=== PATIENT | female | born 1985 | race Caucasian/White ===

== ENCOUNTER → 2017-09-04 | Outpatient (CLI) | payer MEDICAID ==
[~2017-09-04] MED LIST: CYCL5TAB PO; IOHEXOL 350 MG/ML 100 ML (OMNIPAQUE 350) VIAL IV ONE; MELO15TA39 PO; NS 250 ML (IVPB) BAG IV ONE
--- NOTE | 2017-09-04 12:07 | Diagnostic Imaging Report ---
PROCEDURE: CT head with and without contrast. TECHNIQUE: Multiple contiguous axial images were obtained through the brain before and after the administration of intravenous contrast. INDICATION: Dizziness and visual disturbances. Headache. COMPARISON: None. FINDINGS: No acute intracranial hemorrhage, mass effect or edema seen. Reyes-white junction is preserved. The ventricles appear normal. No focal abnormality is seen. There is no abnormal enhancement. The paranasal sinuses and mastoids are clear as visualized. IMPRESSION: There is no evidence of an acute intracranial abnormality. Dictated by: Dictated on workstation # [id number]
== END ==
LOC: RAD 10:50
PROVIDERS: ATTEND Internal Medicine Gastroenterology
DX: G44.321 Chronic post-traumatic headache, intractable (principal)
CPT/HCPCS: 70470

== ENCOUNTER → 2017-09-06 | Outpatient (CLI) | payer MEDICAID ==
[~2017-09-06] MED LIST changes: -IOHEXOL 350 MG/ML 100 ML (OMNIPAQUE 350) VIAL IV ONE; -NS 250 ML (IVPB) BAG IV ONE
== END ==
LOC: PREOP 05:30
PROVIDERS: ATTEND Surgery
DX: Z01.818 Encounter for other preprocedural examination (principal)

== ENCOUNTER 2017-09-12 13:38 | Emergency (ER) | payer MEDICAID ==
[2017-09-15] MEDS ORDERED: CYCL5TAB PO (11:56)
== END 2017-09-12 13:55 | disposition left against medical advice (07) ==
LOC: EDUNIT# 13:38 → ER 13:40
DX: M54.5 Low back pain (principal)

== ENCOUNTER 2017-09-18 08:30 | Emergency (ER) | payer MEDICAID ==
[~2017-09-18] VITALS: Ht 172.7 cm; Wt 85.3 kg
[~2017-09-18 08:30] MED LIST changes: -MELO15TA39 PO
--- NOTE | 2017-09-18 09:45 | ED Lower Extremity ---
General Chief Complaint: Lower Extremity Stated Complaint: LOWER BACK PAIN//TOOTH PAIN//KNEE PAIN Source: patient Exam Limitations: no limitations History of Present Illness Date Seen by Provider: September 18, 2017 Time Seen by Provider: 09:32 Initial Comments Right knee pain for over a year. She was being followed in [place] and was told that she needed to have surgery on her right knee by a knee surgeon. Unfortunately 3 weeks ago after the passing of her mother she has moved to [place] and now needs to reestablish care. She is being seen by [facility] by Dr. bravo but has not gotten referral to see orthopedic surgery or have anything worked on this knee. She has had multiple pain meds in the past and she says tramadol works very well for her pain as well as opiates however she has allergy to naproxen. She was here in the ER a couple days ago she says and they gave her some pain medicine as well as some Flexeril but that did not help her knee. She says her knee locks up on her sometimes and is stiff most mornings. She is not having any swelling redness, fever, nausea, chills, vomiting, diarrhea. She's had no discharge, dysuria or difficulty urinating. Allergies and Home Medications Allergies Coded Allergies: No Allergy Information Available (Unverified , 08/23/17) Home Medications Cyclobenzaprine HCl 5 Mg Tablet, 5 MG PO TID PRN for PAIN-MODERATE Prescribed by: BRITTNEY JONES on 09/15/17 6976 Patient Home Medication List Home Medication List Reviewed: Yes Constitutional: No chills, No fever EENTM: No ear pain, No eye pain, No tearing, No vision loss Respiratory: No cough, No short of breath Cardiovascular: No chest pain, No edema Gastrointestinal: No abdominal pain, No constipation, No nausea Genitourinary: No discharge, No dysuria Musculoskeletal: see HPI, back pain (chronic), joint pain Skin: No pruritus, No rash Past Gqxhdea-Psgsyn-Jgyadn Hx Patient Social History Alcohol Use: Denies Use Recreational Drug Use: No Smoking Status: Former Smoker Type Used: Cigarettes Former Smoker, Quit: September 12, 2016 Recent Foreign Travel: No Contact w/Someone Who Travel: No Recent Hopitalizations: No Physical Abuse: No Sexual Abuse: No Mistreated: No Fear: No Seasonal Allergies Seasonal Allergies: No Past Medical History Surgeries: No Respiratory: No Cardiac: No Neurological: No Genitourinary: No Gastrointestinal: No Musculoskeletal: No Endocrine: No HEENT: No Cancer: No Psychosocial: No Nursing Suicide Risk Score: 0 Integumentary: No Blood Disorders: No Adverse Reaction/Blood Tranf: No Physical Exam Vital Signs Capillary Refill : General Appearance: WD/WN, no apparent distress HEENT: PERRL/EOMI, pharynx normal Cardiovascular: normal peripheral pulses, regular rate, rhythm Respiratory: no respiratory distress, no accessory muscle use Hips: bilateral hip non-tender, bilateral hip normal inspection, bilateral hip normal range of motion, bilateral hip no evidence of injury Legs: bilateral leg non-tender, bilateral leg normal inspection, bilateral leg normal range of motion, bilateral leg no evidence of injury Knees: left knee non-tender; bilateral knee normal inspection, bilateral knee normal range of motion; left knee no evidence of injury; right knee bone tenderness (anterior lateral tibial plateau), right knee pain, right knee other (pain on the LCL tension but negative anterior-posterior drawer test) Ankles: bilateral ankle non-tender, bilateral ankle normal inspection, bilateral ankle normal range of motion, bilateral ankle no evidence of injury Neurologic/Tendon: normal sensation, normal motor functions, normal tendon functions, responds to pain, no evidence tendon injury Neurologic/Psychiatric: no motor/sensory deficits, alert, oriented x 3 Skin: normal color, warm/dry Progress/Results/Core Measures Progress Progress Note : Time: 09:42 Progress Note She's not desirous of any NSAIDs acutely today but she is willing to try meloxicam scheduled for her chronic knee pain. She also like a list of the doctors in the area as well as she's asked for referral for orthopedic surgery. Departure Impression Primary Impression: Right anterior knee pain Disposition: 01 HOME, SELF-CARE Condition: Stable Departure-Patient Inst. Decision time for Depature: 09:43 Referrals: LINA PELAEZ,LOCAL PHYSICIAN (PCP) Primary Care Physician Patient Instructions: Chronic Knee Pain, LOCAL PHYSICIAN LIST Add. Discharge Instructions: Ice the knee as needed as well as use heating pads, elevated if he gets swollen. You can use a knee wrap her knee brace for compression and support. You can also use creams such as icy hot or Biofreeze. Use the meloxicam one tablet daily for the next 4 weeks. For breakthrough pain you can use 1000 mg of Tylenol every 8 hours. You should also try and follow-up with either your primary care doctor or see the list for a new primary care doctor. If you wish to follow up with orthopedic surgery in you can call Dr. Pelaez at [facility] at [phone] and request a call that she will still need referral from your primary care doctor. All discharge instructions reviewed with patient and/or family. Voiced understanding. Scripts Meloxicam (Meloxicam) 15 Mg Tablet 15 MG PO DAILY for 30 Days, #30 TAB 0 Refills Prov: VALERIE OGLESBY 09/18/17 Copy Copies To 1: GALINA BANGURA DO VALERIE OGLESBY September 18, 2017 09:45
[2017-09-18] MEDS ORDERED: MELO15TA39 PO (09:46)
[2017-09-18 09:50] VITALS: BP 126/74
== END 2017-09-18 09:50 | disposition home or self-care (01) ==
LOC: EDUNIT# 08:30 → ER 08:33
DX: M25.561 Pain in right knee (principal); Z87.891 Personal history of nicotine dependence
CPT/HCPCS: 99283

== ENCOUNTER 2017-09-22 05:41 | Outpatient (CLI) | payer MEDICAID ==
[~2017-09-22] VITALS: Ht 172.7 cm; Wt 85.3 kg
[~2017-09-22 05:41] MED LIST changes: +MELO15TA39 PO
== END 2017-09-22 13:56 ==
LOC: PREOP 05:41
PROVIDERS: ATTEND Surgery
DX: Z01.818 Encounter for other preprocedural examination (principal); K81.1 Chronic cholecystitis

== ENCOUNTER 2017-12-29 13:06 | Emergency (ER) | payer MEDICAID ==
[~2017-12-29] VITALS: Ht 172.7 cm; Wt 80.7 kg
[2017-12-29] MEDS ORDERED: TRAM-42 PO (14:29)
[2017-12-29] MEDS ORDERED: PRD20T PO (14:29)
--- NOTE | 2017-12-29 14:29 | ED General ---
General Chief Complaint: General Problems/Pain Stated Complaint: BACK PAIN/WEAKNESS Nursing Triage Note: Pt ambulated to rm 8 w/o difficulty. Pt states hurt back moving. Pt seems very lethargic. Pt states she took a muscle relaxer today. Nursing Sepsis Screen: No Definite Risk Source of Information: Patient Exam Limitations: No Limitations History of Present Illness Date Seen by Provider: Jan 01, 2018 Time Seen by Provider: 14:00 Initial Comments This 32-year-old young lady presents to the emergency room with complaints of lower back pain. She denies any bowel or bladder dysfunction or leg weakness. She does have some paresthesia and pain radiating into the right thigh. She has had this problem previously. She took some muscle relaxers earlier today which did not improve her pain much. She does feel somnolent on muscle relaxers and her speech and demeanor seems sluggish this afternoon. There was no precipitating injury. He also take ibuprofen 800 mg this morning without significant relief. Allergies and Home Medications Allergies Coded Allergies: Penicillins (Verified Allergy, Unknown, RASH, 09/22/17) amoxicillin (Verified Allergy, Unknown, 09/22/17) meperidine (Verified Allergy, Unknown, 12/29/17) Home Medications Prednisone 20 Mg Tab, 40 MG PO DAILY Prescribed by: WILLIAM KOEHLER on 12/29/17 1429 Tramadol HCl 50 Mg Tablet, 50 MG PO Q6H PRN for PAIN-MODERATE TO SEVERE Prescribed by: WILLIAM KOEHLER on 12/29/17 1429 Patient Home Medication List Home Medication List Reviewed: Yes Review of Systems Review of Systems Constitutional: no symptoms reported EENTM: no symptoms reported Respiratory: no symptoms reported Cardiovascular: no symptoms reported Gastrointestinal: no symptoms reported Genitourinary: no symptoms reported : No Musculoskeletal: see HPI Skin: no symptoms reported Psychiatric/Neurological: See HPI Hematologic/Lymphatic: No Symptoms Reported Immunological/Allergic: no symptoms reported Past Dqvjwrm-Drswll-Csgmsg Hx Patient Social History Alcohol Use: Denies Use Recreational Drug Use: No Type Used: Electronic/Vapor Former Smoker, Quit: September 12, 2016 Recent Foreign Travel: No Contact w/Someone Who Travel: No Recent Infectious Disease Expo: No Recent Hopitalizations: No Seasonal Allergies Seasonal Allergies: No Past Medical History Surgeries: No Respiratory: No Cardiac: No Neurological: No : No Reproductive Disorders: No Genitourinary: No Gastrointestinal: Yes Gall Bladder Disease Musculoskeletal: Yes Chronic Back Pain Endocrine: No HEENT: No Cancer: No Psychosocial: No Integumentary: No Blood Disorders: No Adverse Reaction/Blood Tranf: No Physical Exam Vital Signs Vital Signs - First Documented 12/29/17 13:25 Temp 99.3 Pulse 74 Resp 14 B/P (MAP) 118/55 (76) Pulse Ox 98 O2 Delivery Room Air Capillary Refill : Less Than 3 Seconds Height, Weight, BMI Height: 5'8.00" Weight: 178lbs. 0.0oz. 80.718181da; 28.6 BMI Method:Stated General Appearance: No Apparent Distress, WD/WN, Other (Mcneill sluggish/ somnolent) HEENT: Normal ENT Inspection Neck: Normal Inspection Respiratory: Lungs Clear, Normal Breath Sounds, No Accessory Muscle Use, No Respiratory Distress Cardiovascular: Regular Rate, Rhythm, No Edema, No Murmur Gastrointestinal: Non Tender, Soft Back: Other (Tenderness in the right lower lumbar region and right paraspinous region) Extremity: Normal Inspection Progress/Results/Core Measures Suspected Sepsis Recent Fever Within 48 Hours: No Infection Criteria Present: None New/Unexplained Altered Menta: No Sepsis Screen: No Definite Risk SIRS Temperature:99.3 Pulse: 74 Respiratory Rate: 14 Blood Pressure 118 /55 Mean: 76 Results/Orders Vital Signs/I&O Capillary Refill : Less Than 3 Seconds Blood Pressure Mean: 76 Departure Impression Primary Impression: Radicular pain of right lower back Disposition: 01 HOME, SELF-CARE Condition: Stable Departure-Patient Inst. Decision time for Depature: 14:10 Referrals: NO,LOCAL PHYSICIAN (PCP/Family) Primary Care Physician Patient Instructions: Low Back Pain in Adults, Radiculopathy Add. Discharge Instructions: You may continue using ibuprofen up to 600 mg every 6 hours. Add Tylenol ( acetaminophen) up to 1000 mg every 6 hours as needed for additional pain relief. You may continue using her muscle relaxer at night before bed. Use the prednisone steroids as prescribed to help reduce inflammation. Use Ultram (tramadol) only for pain not controlled by ibuprofen and Tylenol. Return to care if you have worsening symptoms, especially if you develop leg weakness or difficulty controlling your bowels or your bladder. Please follow-up with your primary care provider soon as possible. All discharge instructions reviewed with patient and/or family. Voiced understanding. Scripts Tramadol HCl (Ultram) 50 Mg Tablet 50 MG PO Q6H PRN for PAIN-MODERATE TO SEVERE, #8 TAB Prov: WILLIAM MOBLEY MD 12/29/17 Prednisone (Prednisone) 20 Mg Tab 40 MG PO DAILY, #8 TAB Prov: WILLIAM MOBLEY MD 12/29/17 WILLIAM MOBLEY MD Dec 29, 2017 14:29
[2017-12-29 14:30] VITALS: BP 118/55
--- OUTSIDE RECORDS SUMMARY | 2017-12-30 03:28 | XMS REPORT ---
Author Author SHERLYN Carl Organization [facility] Address [address] [address] Care Team Providers Care Card Puncher Name Role Phone SHERLYN Carl Unavailable PROBLEMS Type Condition ICD9-CM Code [id number] Code Onset Dates Condition Status SNOMED Code Problem Low back pain with right-sided sciatica, unspecified back pain laterality, unspecified chronicity M54.41 Active 201269254 Problem Intractable chronic post-traumatic headache G44.321 Active 894086313 Problem Constipation, unspecified constipation type K59.00 Active 82872926 Problem Neuropathic pain M79.2 Active 704226072 Problem Gallstones K80.20 Active 600288568 ALLERGIES Substance Reaction Event Type Date Status Amoxicillin ER hives Drug Allergy August, Active Penicillin G Sodium hives Drug Allergy August, Active Codeine Sulfate hives Drug Allergy August, Active ENCOUNTERS Encounter Location Date Diagnosis [facility] [address] [place] [address] Dec, [facility] [address] [address] Oct, [facility] [id number] [place] [address]85[address] Sep, Low back pain with right-sided sciatica, unspecified back pain laterality, unspecified chronicity M54.41 and Neuropathic pain M79.2 [facility] [id number] [place] [address]196[address] 9[address] August, [facility] [id number] [place] [address] 27741- 7507 August, [facility] [id number] [place] [address] 19357- 6227 August, [place] [address] [place] [address]99- [address] August, Low back pain with right-sided sciatica, unspecified back pain laterality, unspecified chronicity M54.41 [facility] [id number] [address] August, Intractable chronic post-traumatic headache G44.321 [place] [id number] [place] [address]95- [address] August, Chronic intractable headache, unspecified headache type R51 and Gallstones K80.20 [place] [id number] [place] [address] 07481- 0910 Jul, [place] [id number] [place] [address] 58317- 9614 Jul, Chronic intractable headache, unspecified headache type R51 and Fatigue, unspecified type R53.83 [place] [id number] [place] [address] 29375- 0175 Jul, [place] [id number] [place] [address] 53874- 8291 Jul, [place] [id number] [place] [address] 60108- 4823 Jul, [place] [id number] [place] [address] 34122- 6288 Jul, Left upper quadrant pain R10.12 and Constipation, unspecified constipation type K59.00 IMMUNIZATIONS No Known Immunizations SOCIAL HISTORY Never Assessed REASON FOR VISIT Headache- gale vizcarra, bilateral lower back pain PLAN OF CARE Activity Details Follow Up as scheduled Reason: VITAL SIGNS Height 5'8" in 2017-09-12 Weight 189 lbs 2017-09-12 Temperature 98.3 degrees Fahrenheit 2017-09-12 Heart Rate 80 bpm 2017-09-12 Respiratory Rate 20 2017-09-12 BMI 28.73 kg/m2 2017-09-12 Blood pressure systolic 122 mmHg 2017-09-12 Blood pressure diastolic 70 mmHg 2017-09-12 MEDICATIONS Medication Instructions Dosage Frequency Start Date End Date Duration Status MiraLax - Orally Once a day 1 packet mixed with 8 ounces of fluid 24h Jul, August, 30 day(s) Active Tramadol HCl 50 mg Orally Once a day as needed for pain 1 tablet as needed August, August, 10 days Active Gabapentin 300 MG Orally Once a day 1 capsule before bedtime 24h Active RESULTS No Results PROCEDURES No Known procedures INSTRUCTIONS MEDICATIONS ADMINISTERED No Known Medications MEDICAL (GENERAL) HISTORY Type Description Date Medical History gallstones
--- OUTSIDE RECORDS SUMMARY | 2017-12-30 03:28 | XMS REPORT ---
Author Author BLANCHE CARO Organization [facility] Address [address] [place] [address] Care Team Providers Care Industrial Tech Instructor Name Role Phone BLANCHE CARO Unavailable PROBLEMS Type Condition ICD9-CM Code [id number] Code Onset Dates Condition Status SNOMED Code Problem Low back pain with right-sided sciatica, unspecified back pain laterality, unspecified chronicity M54.41 Active 444700291 Problem Intractable chronic post-traumatic headache G44.321 Active 378108831 Problem Constipation, unspecified constipation type K59.00 Active 20955760 Problem Neuropathic pain M79.2 Active 626762015 Problem Gallstones K80.20 Active 987146973 ALLERGIES Substance Reaction Event Type Date Status Amoxicillin ER hives Drug Allergy Sep, Active Penicillin G Sodium hives Drug Allergy Sep, Active Codeine Sulfate hives Drug Allergy Sep, Active ENCOUNTERS Encounter Location Date Diagnosis [facility] [address] [place] [address] 27951- 9730 Dec, [facility] [address] [place] [address] 97779- 0202 Oct, [facility] [address] [place] [address] 58538- 1013 Sep, Low back pain with right-sided sciatica, unspecified back pain laterality, unspecified chronicity M54.41 and Neuropathic pain M79.2 [facility] [address] [place] [address] 40812- 2809 August, [facility] [id number] [place] [address] 88654- 7340 August, [facility] [address] [place] [address] 83448- 1574 August, [place] [address] [address] August, Low back pain with right-sided sciatica, unspecified back pain laterality, unspecified chronicity M54.41 [facility] [id number] [address] August, Intractable chronic post-traumatic headache G44.321 [place] [id number] [place] [address] 15305- 7748 August, Chronic intractable headache, unspecified headache type R51 and Gallstones K80.20 [place] [id number] [place] [address] 19960- 1928 Jul, [place] [id number] [place] [address] 55737- 7292 Jul, Chronic intractable headache, unspecified headache type R51 and Fatigue, unspecified type R53.83 [place] [id number] [place] [address] 90173- 8810 Jul, [place] [id number] [place] [address] 10355- 1832 Jul, [place] [id number] [place] [address] 92356- 8027 Jul, [place] [id number] [place] [address] 67218- 8257 Jul, Left upper quadrant pain R10.12 and Constipation, unspecified constipation type K59.00 IMMUNIZATIONS No Known Immunizations SOCIAL HISTORY Never Assessed REASON FOR VISIT Establish Care-awoods, c/o pain near spine PLAN OF CARE Activity Details Follow Up 3 Months with Kiley arreaga Reason: VITAL SIGNS Height 5'8" in 2017-10-12 Weight 182.6 lbs 2017-10-12 Temperature 98.2 degrees Fahrenheit 2017-10-12 Heart Rate 78 bpm 2017-10-12 Respiratory Rate 20 2017-10-12 BMI 27.76 kg/m2 2017-10-12 Blood pressure systolic 118 mmHg 2017-10-12 Blood pressure diastolic 72 mmHg 2017-10-12 MEDICATIONS Medication Instructions Dosage Frequency Start Date End Date Duration Status Gabapentin 600 MG Orally Once a day 1 capsule before bedtime 24h 30 days Active Ultram 50 mg Orally Once daily PRN 1 capsule Sep, Oct, 28 days Active RESULTS No Results PROCEDURES No Known procedures INSTRUCTIONS MEDICATIONS ADMINISTERED No Known Medications MEDICAL (GENERAL) HISTORY Type Description Date Medical History gallstones
--- OUTSIDE RECORDS SUMMARY | 2017-12-30 03:28 | XMS REPORT ---
Author Author SHERLYN Carl Organization [facility] Address [address] [address] Care Team Providers Care Visual Supervisor Name Role Phone SHERLYN Carl Unavailable PROBLEMS Type Condition ICD9-CM Code DPI39-LU Code Onset Dates Condition Status SNOMED Code Problem Low back pain with right-sided sciatica, unspecified back pain laterality, unspecified chronicity M54.41 Active 716554215 Problem Intractable chronic post-traumatic headache G44.321 Active 696913151 Problem Constipation, unspecified constipation type K59.00 Active 16950676 Problem Neuropathic pain M79.2 Active 492482554 Problem Gallstones K80.20 Active 029124392 ALLERGIES No Information ENCOUNTERS Encounter Location Date Diagnosis [facility] [place] [address] [place] [address]120- [address] Dec, [facility] [place] [id number] [place] [address] 39486- 3771 Oct, [facility] [place] [id number] [place] [address] 85700- 1531 14 Sep, 2017 Low back pain with right-sided sciatica, unspecified back pain laterality, unspecified chronicity M54.41 and Neuropathic pain M79.2 [facility] [place] [address] [place] [address]57- 3071 August, [facility] [place] [id number] [place] [address] 74594- 1959 August, [facility] [place] [id number] [place] [address] 64271- 8772 August, [facility] [place] [id number] [place] [address] 79276- 6284 August, Low back pain with right-sided sciatica, unspecified back pain laterality, unspecified chronicity M54.41 [facility] [address] [id number] [address] August, Intractable chronic post-traumatic headache G44.321 [facility] [place] [address] [address] August, Chronic intractable headache, unspecified headache type R51 and Gallstones K80.20 [place] [address] [address] Jul, [place] [id number] [place] [address] 67541- 5882 Jul, Chronic intractable headache, unspecified headache type R51 and Fatigue, unspecified type R53.83 [place] [id number] [place] [address] 23025- 5141 Jul, [place] [address] [place] [address] 91278- 0572 Jul, [place] [address] [id number] [place] [address] 59280- 6402 Jul, [facility] [place] [address] [address] Jul, Left upper quadrant pain R10.12 and Constipation, unspecified constipation type K59.00 IMMUNIZATIONS No Known Immunizations SOCIAL HISTORY Never Assessed REASON FOR VISIT Requests return call PLAN OF CARE VITAL SIGNS MEDICATIONS Unknown Medications RESULTS No Results PROCEDURES No Known procedures INSTRUCTIONS MEDICATIONS ADMINISTERED No Known Medications MEDICAL (GENERAL) HISTORY Type Description Date Medical History gallstones
--- OUTSIDE RECORDS SUMMARY | 2017-12-30 03:28 | XMS REPORT ---
Author Author SHERLYN Carl Organization [facility] Address [address] [address] Care Team Providers Care Medical Voucher Clerk Name Role Phone SHERLYN Carl Unavailable PROBLEMS Type Condition ICD9-CM Code NBN39-OC Code Onset Dates Condition Status SNOMED Code Problem Low back pain with right-sided sciatica, unspecified back pain laterality, unspecified chronicity M54.41 Active 129188442 Problem Intractable chronic post-traumatic headache G44.321 Active 217217926 Problem Constipation, unspecified constipation type K59.00 Active 86805230 Problem Neuropathic pain M79.2 Active 501794185 Problem Gallstones K80.20 Active 142291601 ALLERGIES No Information ENCOUNTERS Encounter Location Date Diagnosis [facility] [address] [place] [address] 69116- 9101 Dec, [facility] [id number] [place] [address] 81119- 7355 Oct, [facility] [id number] [place] [address] 63634- 3428 14 Sep, 2017 Low back pain with right-sided sciatica, unspecified back pain laterality, unspecified chronicity M54.41 and Neuropathic pain M79.2 [facility] [address] [place] [address] 69728- 3362 August, [facility] [id number] [place] [address] 21920- 8737 August, [facility] [id number] [place] [address] 91904- 5940 August, [facility] [id number] [place] [address] 45577- 9091 August, Low back pain with right-sided sciatica, unspecified back pain laterality, unspecified chronicity M54.41 [facility] [address] [id number] [address] August, Intractable chronic post-traumatic headache G44.321 [facility] [address], [place] [address] August, Chronic intractable headache, unspecified headache type R51 and Gallstones K80.20 [place] [address], [place] [address] Jul, [place] [id number] [place] [address] 42805- 0931 Jul, Chronic intractable headache, unspecified headache type R51 and Fatigue, unspecified type R53.83 [place] [id number] [place] [address] 32396- 5791 Jul, [place] [address] [place] [address] 77753- 0532 Jul, [place] [id number] [place] [address] 23218- 0016 Jul, [place] [address], [place] [address] Jul, Left upper quadrant pain R10.12 and Constipation, unspecified constipation type K59.00 IMMUNIZATIONS No Known Immunizations SOCIAL HISTORY Never Assessed REASON FOR VISIT Question PLAN OF CARE VITAL SIGNS MEDICATIONS Unknown Medications RESULTS No Results PROCEDURES No Known procedures INSTRUCTIONS MEDICATIONS ADMINISTERED No Known Medications MEDICAL (GENERAL) HISTORY Type Description Date Medical History gallstones
--- OUTSIDE RECORDS SUMMARY | 2017-12-30 03:28 | XMS REPORT ---
Author Author SHERLYN Carl Organization [facility] Address [address] [address] Care Team Providers Care Slitter And Rewinder Name Role Phone SHERLYN Carl Unavailable PROBLEMS Type Condition ICD9-CM Code PYY17-IJ Code Onset Dates Condition Status SNOMED Code Problem Low back pain with right-sided sciatica, unspecified back pain laterality, unspecified chronicity M54.41 Active 737350343 Problem Intractable chronic post-traumatic headache G44.321 Active 415607810 Problem Constipation, unspecified constipation type K59.00 Active 28424150 Problem Neuropathic pain M79.2 Active 926742373 Problem Gallstones K80.20 Active 936208416 ALLERGIES No Information ENCOUNTERS Encounter Location Date Diagnosis [facility] [address] [place] [address] 83859- 8016 Dec, [facility] [id number] [place] [address] 29530- 3985 Oct, [facility] [id number] [place] [address] 94747- 9512 14 Sep, 2017 Low back pain with right-sided sciatica, unspecified back pain laterality, unspecified chronicity M54.41 and Neuropathic pain M79.2 [facility] [address] [place] [address] 79723- 0024 August, [facility] [id number] [place] [address] 06921- 2133 August, [facility] [id number] [place] [address] 83455- 2537 August, [facility] [id number] [place] [address] 40259- 5415 August, Low back pain with right-sided sciatica, unspecified back pain laterality, unspecified chronicity M54.41 [facility] [id number] [address] August, Intractable chronic post-traumatic headache G44.321 [facility] [address], [place] [address] August, Chronic intractable headache, unspecified headache type R51 and Gallstones K80.20 [place] [address], [place] [address] 3[address] Jul, [place] [id number] [place] [address] 92168- 7496 Jul, Chronic intractable headache, unspecified headache type R51 and Fatigue, unspecified type R53.83 [place] [id number] [place] [address] 04690- 7036 Jul, [place] [address] [place] [address] 77565- 3457 Jul, [place] [id number] [place] [address] 77112- 3712 Jul, [place] [address] [place] [address] 28877- 0037 Jul, Left upper quadrant pain R10.12 and Constipation, unspecified constipation type K59.00 IMMUNIZATIONS No Known Immunizations SOCIAL HISTORY Never Assessed REASON FOR VISIT DI results PLAN OF CARE VITAL SIGNS MEDICATIONS Unknown Medications RESULTS No Results PROCEDURES No Known procedures INSTRUCTIONS MEDICATIONS ADMINISTERED No Known Medications MEDICAL (GENERAL) HISTORY Type Description Date Medical History gallstones
--- OUTSIDE RECORDS SUMMARY | 2017-12-30 03:28 | XMS REPORT ---
Author Author SHERLYN Carl Organization [facility] Address [address] [address] Care Team Providers Care Automobile Or Truck Rental Dispatcher Name Role Phone SHERLYN Carl Unavailable PROBLEMS Type Condition ICD9-CM Code OIU94-UR Code Onset Dates Condition Status SNOMED Code Problem Low back pain with right-sided sciatica, unspecified back pain laterality, unspecified chronicity M54.41 Active 730528887 Problem Intractable chronic post-traumatic headache G44.321 Active 190913197 Problem Constipation, unspecified constipation type K59.00 Active 23430734 Problem Neuropathic pain M79.2 Active 628990278 Problem Gallstones K80.20 Active 417270259 ALLERGIES Substance Reaction Event Type Date Status Amoxicillin ER hives Drug Allergy August, Active Penicillin G Sodium hives Drug Allergy August, Active Codeine Sulfate hives Drug Allergy August, Active ENCOUNTERS Encounter Location Date Diagnosis [facility] [id number], [place] [address] Dec, [facility] [address], [place] [address] Oct, [facility] [id number] [place] [address] 84516- 3780 Sep, Low back pain with right-sided sciatica, unspecified back pain laterality, unspecified chronicity M54.41 and Neuropathic pain M79.2 [facility] [id number] [place] [address] 46696- 4335 August, [facility] [id number] [place] [address] 15512- 5391 August, [facility] [id number] [place] [address] 01327- 2891 August, [place] [address] [place] [address] 26346- 5212 August, Low back pain with right-sided sciatica, unspecified back pain laterality, unspecified chronicity M54.41 [facility] [id number] [address] August, Intractable chronic post-traumatic headache G44.321 [place] [id number] [place] [address] 30675- 6802 August, Chronic intractable headache, unspecified headache type R51 and Gallstones K80.20 [place] [id number] [place] [address] 28986- 8896 Jul, [place] [id number] [place] [address] 12083- 3414 Jul, Chronic intractable headache, unspecified headache type R51 and Fatigue, unspecified type R53.83 [place] [id number] [place] [address] 94276- 9151 Jul, [place] [id number] [place] [address] 10743- 3416 Jul, [place] [id number] [place] [address] 59218- 3876 Jul, [place] [id number] [place] [address] 58417- 5307 Jul, Left upper quadrant pain R10.12 and Constipation, unspecified constipation type K59.00 IMMUNIZATIONS No Known Immunizations SOCIAL HISTORY Never Assessed REASON FOR VISIT discuss lab results -- gale yen PLAN OF CARE Activity Details Follow Up 2 Weeks Reason:establish care VITAL SIGNS Height 5'8" in 2017-08-31 Weight 181.0 lbs 2017-08-31 Temperature 98.0 degrees Fahrenheit 2017-08-31 BMI 27.52 kg/m2 2017-08-31 Blood pressure systolic 118 mmHg 2017-08-31 Blood pressure diastolic 76 mmHg 2017-08-31 MEDICATIONS Medication Instructions Dosage Frequency Start Date End Date Duration Status Gabapentin 300 MG Orally Once a day 1 capsule before bedtime 24h Active MiraLax - Orally Once a day 1 packet mixed with 8 ounces of fluid 24h Jul, August, 30 day(s) Active RESULTS No Results PROCEDURES No Known procedures INSTRUCTIONS MEDICATIONS ADMINISTERED No Known Medications MEDICAL (GENERAL) HISTORY Type Description Date Medical History gallstones
--- OUTSIDE RECORDS SUMMARY | 2017-12-30 03:28 | XMS REPORT ---
Author Author SHERLYN Carl Organization [facility] Address [address] [address] Care Team Providers Care Landscape Architect And Planner Name Role Phone SHERLYN Carl Unavailable PROBLEMS Type Condition ICD9-CM Code LHF98-FT Code Onset Dates Condition Status SNOMED Code Problem Low back pain with right-sided sciatica, unspecified back pain laterality, unspecified chronicity M54.41 Active 157075619 Problem Intractable chronic post-traumatic headache G44.321 Active 716517890 Problem Constipation, unspecified constipation type K59.00 Active 16795291 Problem Neuropathic pain M79.2 Active 320887782 Problem Gallstones K80.20 Active 469466040 ALLERGIES No Information ENCOUNTERS Encounter Location Date Diagnosis [facility] [address] [place] [address] 86549- 2076 Dec, [facility] [id number] [place] [address] 23734- 0193 Oct, [facility] [id number] [place] [address] 37476- 1904 14 Sep, 2017 Low back pain with right-sided sciatica, unspecified back pain laterality, unspecified chronicity M54.41 and Neuropathic pain M79.2 [facility] [address] [place] [address] 70342- 8598 August, [facility] [id number] [place] [address] 12713- 0782 August, [facility] [id number] [place] [address] 83687- 5445 August, [facility] [id number] [place] [address] 57019- 0643 August, Low back pain with right-sided sciatica, unspecified back pain laterality, unspecified chronicity M54.41 [facility] [address] [id number] [address] August, Intractable chronic post-traumatic headache G44.321 [facility] [address] [place] [address] 85849- 8676 August, Chronic intractable headache, unspecified headache type R51 and Gallstones K80.20 [facility] [address] [place] [address] 28464- 2667 Jul, [place] [id number] [place] [address] 88444- 9536 Jul, Chronic intractable headache, unspecified headache type R51 and Fatigue, unspecified type R53.83 [place] [id number] [place] [address] 25960- 1092 Jul, [facility] [id number] [place] [address] 97257- 3436 Jul, [place] [id number] [place] [address] 99104- 4200 Jul, [facility] [address] [place] [address] 08275- 8608 13 Jul, 2017 Left upper quadrant pain R10.12 and Constipation, unspecified constipation type K59.00 IMMUNIZATIONS No Known Immunizations SOCIAL HISTORY Never Assessed REASON FOR VISIT CT order PLAN OF CARE VITAL SIGNS MEDICATIONS Unknown Medications RESULTS Name Result Date Reference Range CT Scan : Brain w/o & w/ Contrast 2017-09-04 PROCEDURES No Known procedures INSTRUCTIONS MEDICATIONS ADMINISTERED No Known Medications MEDICAL (GENERAL) HISTORY Type Description Date Medical History gallstones
--- OUTSIDE RECORDS SUMMARY | 2017-12-30 03:29 | XMS REPORT ---
Author Author SHERLYN GARCIA Organization [facility] Address [address] [address] Care Team Providers Care Scrap Preparation Supervisor Name Role Phone SHERLYN GARCIA Unavailable PROBLEMS Type Condition ICD9-CM Code [id number] Code Onset Dates Condition Status SNOMED Code Problem Low back pain with right-sided sciatica, unspecified back pain laterality, unspecified chronicity M54.41 Active 559905852 Problem Intractable chronic post-traumatic headache G44.321 Active 423130303 Problem Constipation, unspecified constipation type K59.00 Active 90404858 Problem Neuropathic pain M79.2 Active 761866560 Problem Gallstones K80.20 Active 496597595 ALLERGIES Substance Reaction Event Type Date Status Amoxicillin ER hives Drug Allergy Jul, Active Penicillin G Sodium hives Drug Allergy Jul, Active Codeine Sulfate hives Drug Allergy Jul, Active ENCOUNTERS Encounter Location Date Diagnosis [facility] [address] [place] [address] 78624- 9078 Dec, [facility] [address], [place] [address]- 7175 Oct, [facility] [id number] [place] [address] 66253- 7835 Sep, Low back pain with right-sided sciatica, unspecified back pain laterality, unspecified chronicity M54.41 and Neuropathic pain M79.2 [facility] [id number] [place] [address] 49041- 3678 August, [facility] [address], [place] [address]- 2722 August, [facility] [id number] [place] [address] 10468- 6759 August, [place] [address] [place] [address] 61231- 4725 August, Low back pain with right-sided sciatica, unspecified back pain laterality, unspecified chronicity M54.41 [facility] [id number] [address] August, Intractable chronic post-traumatic headache G44.321 [place] [id number] [place] [address] 75289- 8659 August, Chronic intractable headache, unspecified headache type R51 and Gallstones K80.20 [place] [id number] [place] [address] 67906- 2391 Jul, [place] [id number] [place] [address] 44064- 5898 Jul, Chronic intractable headache, unspecified headache type R51 and Fatigue, unspecified type R53.83 [place] [id number] [place] [address] 57623- 2438 Jul, [place] [id number] [place] [address] 19967- 9009 Jul, [place] [id number] [place] [address] 78697- 8740 Jul, [place] [id number] [place] [address] 55063- 2013 Jul, Left upper quadrant pain R10.12 and Constipation, unspecified constipation type K59.00 IMMUNIZATIONS No Known Immunizations SOCIAL HISTORY Never Assessed REASON FOR VISIT Abdominal Pain, constipation x few days -- gale yen PLAN OF CARE Activity Details Follow Up prn Reason: VITAL SIGNS Height 5'8" in 2017-08-11 Weight 186.0 lbs 2017-08-11 Temperature 97.9 degrees Fahrenheit 2017-08-11 Heart Rate 78 bpm 2017-08-11 Respiratory Rate 18 2017-08-11 BMI 28.28 kg/m2 2017-08-11 Blood pressure systolic 120 mmHg 2017-08-11 Blood pressure diastolic 72 mmHg 2017-08-11 MEDICATIONS Medication Instructions Dosage Frequency Start Date End Date Duration Status Gabapentin 300 MG Orally Once a day 1 capsule before bedtime 24h Active MiraLax - Orally Once a day 1 packet mixed with 8 ounces of fluid 24h Jul, August, 30 day(s) Active RESULTS No Results PROCEDURES Procedure Date Ordered Result Body Site URINE TEST August 11, 2017 VENIPUNCT, ROUTINE* August 11, 2017 MANUAL CELL COUNT, EACH August 11, 2017 COMPREHEN METABOLIC PANEL August 11, 2017 ASSAY OF AMYLASE August 11, 2017 ASSAY OF LIPASE August 11, 2017 INSTRUCTIONS MEDICATIONS ADMINISTERED No Known Medications MEDICAL (GENERAL) HISTORY Type Description Date Medical History gallstones
--- OUTSIDE RECORDS SUMMARY | 2017-12-30 03:29 | XMS REPORT ---
Author Author SHERLYN Carl Organization [facility] Address [address] [address] Care Team Providers Care Fire Prevention Officer Name Role Phone SHERLYN Carl Unavailable PROBLEMS Type Condition ICD9-CM Code YMA79-CM Code Onset Dates Condition Status SNOMED Code Problem Low back pain with right-sided sciatica, unspecified back pain laterality, unspecified chronicity M54.41 Active 093946786 Problem Intractable chronic post-traumatic headache G44.321 Active 641106325 Problem Constipation, unspecified constipation type K59.00 Active 00907028 Problem Neuropathic pain M79.2 Active 782827175 Problem Gallstones K80.20 Active 853422480 ALLERGIES No Information ENCOUNTERS Encounter Location Date Diagnosis [facility] [address] [place] [address] 10333- 4565 Dec, [facility] [id number] [place] [address] 87355- 8807 Oct, [facility] [id number] [place] [address] 48632- 3917 14 Sep, 2017 Low back pain with right-sided sciatica, unspecified back pain laterality, unspecified chronicity M54.41 and Neuropathic pain M79.2 [facility] [address] [place] [address] 64632- 3973 August, [facility] [id number] [place] [address] 92919- 0841 August, [facility] [id number] [place] [address] 29458- 4327 August, [facility] [id number] [place] [address] 10870- 6833 August, Low back pain with right-sided sciatica, unspecified back pain laterality, unspecified chronicity M54.41 [facility] [address] [id number] [address] August, Intractable chronic post-traumatic headache G44.321 [facility] [address], [place] [address] 8118 August, Chronic intractable headache, unspecified headache type R51 and Gallstones K80.20 [place] [address], [place] [address]- 1866 Jul, [place] [id number] [place] [address] 98527- 8498 Jul, Chronic intractable headache, unspecified headache type R51 and Fatigue, unspecified type R53.83 [place] [id number] [place] [address] 63089- 7712 Jul, [place] [address] [place] [address] 60934- 6789 Jul, [place] [id number] [place] [address] 49782- 4297 Jul, [facility] [address], [place] [address]- 4201 Jul, Left upper quadrant pain R10.12 and Constipation, unspecified constipation type K59.00 IMMUNIZATIONS No Known Immunizations SOCIAL HISTORY Never Assessed REASON FOR VISIT Lab results PLAN OF CARE VITAL SIGNS MEDICATIONS Unknown Medications RESULTS No Results PROCEDURES No Known procedures INSTRUCTIONS MEDICATIONS ADMINISTERED No Known Medications MEDICAL (GENERAL) HISTORY Type Description Date Medical History gallstones
--- OUTSIDE RECORDS SUMMARY | 2017-12-30 03:29 | XMS REPORT ---
Author Author SHERLYN Carl Organization [facility] Address [address] [address] Care Team Providers Care Radiology Practitioner Assistant Name Role Phone SHERLYN Carl Unavailable PROBLEMS Type Condition ICD9-CM Code [id number] Code Onset Dates Condition Status SNOMED Code Problem Low back pain with right-sided sciatica, unspecified back pain laterality, unspecified chronicity M54.41 Active 235034959 Problem Intractable chronic post-traumatic headache G44.321 Active 221984662 Problem Constipation, unspecified constipation type K59.00 Active 21171994 Problem Neuropathic pain M79.2 Active 885271116 Problem Gallstones K80.20 Active 234801069 ALLERGIES Substance Reaction Event Type Date Status Amoxicillin ER hives Drug Allergy Jul, Active Penicillin G Sodium hives Drug Allergy Jul, Active Codeine Sulfate hives Drug Allergy Jul, Active ENCOUNTERS Encounter Location Date Diagnosis [facility] [id number], [place] [address] Dec, [facility] [address], [place] [address] Oct, [facility] [id number] [place] [address] Sep, Low back pain with right-sided sciatica, unspecified back pain laterality, unspecified chronicity M54.41 and Neuropathic pain M79.2 [facility] [id number] [place] [address] August, [facility] [id number] [address] August, [facility] [id number] [place] [address]756- 8[address] August, [address] [address] [place] [address]20- [address] August, Low back pain with right-sided sciatica, unspecified back pain laterality, unspecified chronicity M54.41 [facility] [id number] [address] August, Intractable chronic post-traumatic headache G44.321 [address] [id number] [place] [address] 06258- 8566 August, Chronic intractable headache, unspecified headache type R51 and Gallstones K80.20 [place] [id number] [place] [address] 20084- 9359 Jul, [place] [id number] [place] [address] 82081- 6950 Jul, Chronic intractable headache, unspecified headache type R51 and Fatigue, unspecified type R53.83 [place] [id number] [place] [address] 22515- 2831 Jul, [place] [id number] [place] [address] 97873- 9614 Jul, [place] [id number] [place] [address] 05383- 1471 Jul, [place] [id number] [place] [address] 81382- 9483 Jul, Left upper quadrant pain R10.12 and Constipation, unspecified constipation type K59.00 IMMUNIZATIONS No Known Immunizations SOCIAL HISTORY Never Assessed REASON FOR VISIT headaches, dizzy, easily confused, nausea, fatigue, began 3-4 weeks ago- AHarrymEric PLAN OF CARE Activity Details Follow Up prn Reason: VITAL SIGNS Height 5'8" in 2017-08-23 Weight 189.1 lbs 2017-08-23 Temperature 97.8 degrees Fahrenheit 2017-08-23 Heart Rate 90 bpm 2017-08-23 Respiratory Rate 20 2017-08-23 BMI 28.75 kg/m2 2017-08-23 Blood pressure systolic 122 mmHg 2017-08-23 Blood pressure diastolic 74 mmHg 2017-08-23 MEDICATIONS Medication Instructions Dosage Frequency Start Date End Date Duration Status Gabapentin 300 MG Orally Once a day 1 capsule before bedtime 24h Not-Taking MiraLax - Orally Once a day 1 packet mixed with 8 ounces of fluid 24h Jul, August, 30 day(s) Not-Taking RESULTS No Results PROCEDURES Procedure Date Ordered Result Body Site No Charge August 23, 2017 INSTRUCTIONS MEDICATIONS ADMINISTERED No Known Medications MEDICAL (GENERAL) HISTORY Type Description Date Medical History gallstones
--- OUTSIDE RECORDS SUMMARY | 2017-12-30 03:29 | XMS REPORT ---
Author Author SHERLYN GARCIA Organization [facility] Address [address] [address] Care Team Providers Care Geophysical Prospecting Permit Agent Name Role Phone SHERLYN GARCIA Unavailable PROBLEMS Type Condition ICD9-CM Code YKE44-PP Code Onset Dates Condition Status SNOMED Code Problem Low back pain with right-sided sciatica, unspecified back pain laterality, unspecified chronicity M54.41 Active 294289735 Problem Intractable chronic post-traumatic headache G44.321 Active 641144249 Problem Constipation, unspecified constipation type K59.00 Active 84829112 Problem Neuropathic pain M79.2 Active 204159872 Problem Gallstones K80.20 Active 679843574 ALLERGIES No Information ENCOUNTERS Encounter Location Date Diagnosis [facility] [id number] [place] [address] Dec, [facility] [id number] [place] [address] 36015- 3854 Oct, [facility] [id number] [place] [address] 57914- 5611 Sep, Low back pain with right-sided sciatica, unspecified back pain laterality, unspecified chronicity M54.41 and Neuropathic pain M79.2 [facility] [id number] [place] [address] 20274- 5199 August, [facility] [address] [address] August, [facility] [id number] [place] [address] 65828- 5867 August, [facility] [id number] [place] [address] 04954- 5[address] August, Low back pain with right-sided sciatica, unspecified back pain laterality, unspecified chronicity M54.41 [facility] [id number] [address] August, Intractable chronic post-traumatic headache G44.321 [place] [id number] [place] [address] 20335- [address] August, Chronic intractable headache, unspecified headache type R51 and Gallstones K80.20 [place] [id number] [place] [address] 84024- 1732 Jul, [place] [id number] [place] [address] 97225- 3512 Jul, Chronic intractable headache, unspecified headache type R51 and Fatigue, unspecified type R53.83 [place] [id number] [place] [address] 17510- 5824 Jul, [place] [id number] [place] [address] 55874- 7717 Jul, [place] [id number] [place] [address] 66667- 4803 Jul, [place] [address] [place] [address] 89374- 0430 Jul, Left upper quadrant pain R10.12 and Constipation, unspecified constipation type K59.00 IMMUNIZATIONS No Known Immunizations SOCIAL HISTORY Never Assessed REASON FOR VISIT Requests return call PLAN OF CARE VITAL SIGNS MEDICATIONS Unknown Medications RESULTS No Results PROCEDURES No Known procedures INSTRUCTIONS MEDICATIONS ADMINISTERED No Known Medications MEDICAL (GENERAL) HISTORY Type Description Date Medical History gallstones
--- OUTSIDE RECORDS SUMMARY | 2017-12-30 03:29 | XMS REPORT ---
Author Author SHERLYN GARCIA Organization [facility] Address [address] [address] Care Team Providers Care Forensic Computer Examiner Name Role Phone SHERLYN GARCIA Unavailable PROBLEMS Type Condition ICD9-CM Code [id number] Code Onset Dates Condition Status SNOMED Code Problem Low back pain with right-sided sciatica, unspecified back pain laterality, unspecified chronicity M54.41 Active 437767899 Problem Intractable chronic post-traumatic headache G44.321 Active 119874222 Problem Constipation, unspecified constipation type K59.00 Active 82662995 Problem Neuropathic pain M79.2 Active 986492184 Problem Gallstones K80.20 Active 032257689 ALLERGIES No Information ENCOUNTERS Encounter Location Date Diagnosis [facility] [id number] [place] [address]04[address] Dec, [facility] [id number] [place] [address] 26260- 6519 Oct, [facility] [id number] [place] [address] 52291- 4552 Sep, Low back pain with right-sided sciatica, unspecified back pain laterality, unspecified chronicity M54.41 and Neuropathic pain M79.2 [facility] [id number] [place] [address] 39655- 74[address] August, [facility] [address] [address] August, [facility] [id number] [place] [address] 15287- 3819 August, [facility] [id number] [place] [address] 43047- 3124 August, Low back pain with right-sided sciatica, unspecified back pain laterality, unspecified chronicity M54.41 [facility] [id number] [address] August, Intractable chronic post-traumatic headache G44.321 [place] [id number] [place] [address] 40670- 63[address] August, Chronic intractable headache, unspecified headache type R51 and Gallstones K80.20 [place] [id number] [place] [address] 37578- 5515 Jul, [place] [id number] [place] [address] 51132- 6753 Jul, Chronic intractable headache, unspecified headache type R51 and Fatigue, unspecified type R53.83 [place] [id number] [place] [address] 29907- 7062 Jul, [place] [id number] [place] [address] 42568- 3871 Jul, [place] [id number] [place] [address] 84295- 0853 Jul, [place] [address] [place] [address] 48034- 3138 Jul, Left upper quadrant pain R10.12 and Constipation, unspecified constipation type K59.00 IMMUNIZATIONS No Known Immunizations SOCIAL HISTORY Never Assessed REASON FOR VISIT PLAN OF CARE VITAL SIGNS MEDICATIONS Unknown Medications RESULTS No Results PROCEDURES No Known procedures INSTRUCTIONS MEDICATIONS ADMINISTERED No Known Medications MEDICAL (GENERAL) HISTORY Type Description Date Medical History gallstones
--- OUTSIDE RECORDS SUMMARY | 2017-12-30 03:29 | XMS REPORT ---
Author Author SHERLYN GARCIA Organization [facility] Address [address] [address] Care Team Providers Care Silversmith Apprentice Name Role Phone SHERLYN GARCIA Unavailable PROBLEMS Type Condition ICD9-CM Code AYG00-DL Code Onset Dates Condition Status SNOMED Code Problem Low back pain with right-sided sciatica, unspecified back pain laterality, unspecified chronicity M54.41 Active 001161319 Problem Intractable chronic post-traumatic headache G44.321 Active 043547171 Problem Constipation, unspecified constipation type K59.00 Active 95273014 Problem Neuropathic pain M79.2 Active 487020091 Problem Gallstones K80.20 Active 827159881 ALLERGIES No Information ENCOUNTERS Encounter Location Date Diagnosis [facility] [id number] [place] [address] 83369- 8359 Dec, [facility] [id number] [place] [address] 29983- 5815 Oct, [facility] [id number] [place] [address] 45327- 5165 Sep, Low back pain with right-sided sciatica, unspecified back pain laterality, unspecified chronicity M54.41 and Neuropathic pain M79.2 [facility] [id number] [place] [address] 65903- 7675 August, [facility] [address] [address]- [address] August, [facility] [id number] [place] [address] 34356- 3233 August, [facility] [id number] [place] [address] 31003- 0790 August, Low back pain with right-sided sciatica, unspecified back pain laterality, unspecified chronicity M54.41 [facility] [id number] [address] August, Intractable chronic post-traumatic headache G44.321 [place] [id number] [place] [address] 38269- 5199 August, Chronic intractable headache, unspecified headache type R51 and Gallstones K80.20 [place] [id number] [place] [address] 66490- 5950 Jul, [place] [id number] [place] [address] 88125- 6922 Jul, Chronic intractable headache, unspecified headache type R51 and Fatigue, unspecified type R53.83 [place] [id number] [place] [address] 97086- 2181 Jul, [place] [id number] [place] [address] 49202- 6849 Jul, [place] [id number] [place] [address] 24590- 3217 Jul, [place] [address] [place] [address] 46760- 8862 Jul, Left upper quadrant pain R10.12 and Constipation, unspecified constipation type K59.00 IMMUNIZATIONS No Known Immunizations SOCIAL HISTORY Never Assessed REASON FOR VISIT Lab results PLAN OF CARE VITAL SIGNS MEDICATIONS Unknown Medications RESULTS No Results PROCEDURES No Known procedures INSTRUCTIONS MEDICATIONS ADMINISTERED No Known Medications MEDICAL (GENERAL) HISTORY Type Description Date Medical History gallstones
== END 2017-12-29 14:30 | disposition home or self-care (01) ==
LOC: EDUNIT# 13:06 → ER 13:07
DX: M54.16 Radiculopathy, lumbar region (principal); Z88.0 Allergy status to penicillin; Z88.6 Allergy status to analgesic agent; Z87.891 Personal history of nicotine dependence; Z87.448 Personal history of other diseases of urinary system
CPT/HCPCS: 99281

== ENCOUNTER 2018-03-17 15:14 | Outpatient (CLI) | payer MEDICAID ==
[~2018-03-17] VITALS: Ht 175.3 cm; Wt 80.8 kg
[~2018-03-17 15:14] MED LIST changes: +PRD20T PO; +TRAM-42 PO
[2018-03-17 15:35] VITALS: BP 119/59
[2018-03-17] MEDS ORDERED: PREN1TAB79 PO (15:42)
[2018-03-17 15:55] VITALS: BP 110/57
[2018-03-17] MEDS ORDERED: FLU QUADRIvalent (5+ YOA) 2018-2019 (AFLURIA) 0.5 ML IM ONE (16:15)
[2018-03-17 16:22] LABS: BILIRUBIN,URINE NEGATIVE (NEGATIVE); CLARITY,URINE SLIGHTLY CLOUDY; COLOR,URINE YELLOW; GLUCOSE, URINE (UA) NEGATIVE (NEGATIVE); KETONES,URINE NEGATIVE (NEGATIVE); LEUKOCYTE ESTERASE ,URINE 3+ (NEGATIVE); NITRITE,URINE NEGATIVE (NEGATIVE); PH,URINE 6.5 (5-9); PROTEIN,URINE NEGATIVE (NEGATIVE); UROBILINOGEN,URINE NORMAL (NORMAL)
[2018-03-17 16:29] LABS: BACTERIA,URINE TRACE /HPF
[2018-03-17 16:36] LABS: AMPHETAMINE SCREEN, URINE POSITIVE (NEGATIVE); BARBITURATE SCREEN URINE NEGATIVE (NEGATIVE); BENZODIAZEPINES SCREEN URINE NEGATIVE (NEGATIVE); CANNABINOID SCREEN, URINE NEGATIVE (NEGATIVE); COCAINE SCREEN URINE NEGATIVE (NEGATIVE); METHADONE STAT NEGATIVE (NEGATIVE); METHAMPHETAMINE SCREEN URINE S NEGATIVE (NEGATIVE); OPIATE SCREEN URINE NEGATIVE (NEGATIVE); OXYCODONE STAT NEGATIVE (NEGATIVE); PROPOXYPHENE STAT NEGATIVE (NEGATIVE); TRICYCLIC ANTIDEPRESSANTS SCRE NEGATIVE (NEGATIVE)
[2018-03-17 16:45] VITALS: BP 110/57
== END 2018-03-17 16:45 | disposition home or self-care (01) ==
LOC: WSo 15:14 → LDRP 15:15 → WSo 16:45
PROVIDERS: ATTEND Obstetrics & Gynecology
DX: O99.89 Other specified diseases and conditions complicating pregnancy, childbirth and the puerperium (principal); M54.9 Dorsalgia, unspecified; R51 Headache; Z3A.24 24 weeks gestation of pregnancy
CPT/HCPCS: 80306; 81000; 87088

== ENCOUNTER 2018-06-20 12:41 | Outpatient (CLI) | payer MEDICAID ==
[~2018-06-20] VITALS: Ht 172.7 cm; Wt 93.5 kg
[~2018-06-20 12:41] MED LIST changes: +ACET-77 PO; +AZIT250T PO; +DEXT30SU5 PO; +FLT11013 INH; +GUAI600T43 PO; +PRD10T PO; +PREN1TAB79 PO; +RT-ALBUINH IH
--- NOTE | 2018-06-20 12:45 | NUR ---
GIACOMO TRUJILLO presented to unit via from ED, accompanied by friend, with c/o PELVIC PAIN. GIACOMO TRUJILLO weighed, gowned, voided, and to bed. EFHM and TOCO applied, VS taken. GIACOMO TRUJILLO oriented to bed controls, call light, TV, heat, and A/C controls.
[2018-06-20 12:51] VITALS: BP 156/67
[2018-06-20 13:01] VITALS: BP 102/53
--- NOTE | 2018-06-20 13:45 | NUR ---
SVE by alice CASTRO. 1cm thick -3 station. no leaking or bleeding noted. Addendum: 06/20/18 at 1403 by BRIDGER HUIZAR RN happened at 1330
--- NOTE | 2018-06-20 13:50 | NUR ---
dr garza notified of patient status recheck in 35 min. send home if no change.
--- NOTE | 2018-06-20 14:20 | NUR ---
up to bathroom. friend at bedside.
--- NOTE | 2018-06-20 14:40 | NUR ---
SVE no change.
--- NOTE | 2018-06-20 14:50 | NUR ---
out of WS via ambulation with d/c instructions. to home self care active labor ruled out.
--- NOTE | 2018-06-21 10:21 | Physician Query-Final Dx ---
ELSI CHRIS 06/21/18 1021: Clinic Account Progress/Dx Physician Query: Please give a diagnosis and please include the weeks of gestation thank you Date of Service Jun 20, 2018 at 12:41 STONE EPPS MD 06/22/18 0834: Clinic Account Progress/Dx DIAGNOSIS: Diagnosis 37 WEEKS - FALSE LABOR ELSI CHRIS Jun 21, 2018 10:21 STONE EPPS MD Jun 22, 2018 08:34
== END 2018-06-20 14:50 | disposition home or self-care (01) ==
LOC: WSo 12:41 → LDRP 12:41 → WSo 14:50
PROVIDERS: ATTEND Obstetrics & Gynecology
DX: O47.1 False labor at or after 37 completed weeks of gestation (principal); Z3A.37 37 weeks gestation of pregnancy
CPT/HCPCS: 99214

== ENCOUNTER 2018-07-07 12:35 | Outpatient (CLI) | payer MEDICAID ==
[~2018-07-07] VITALS: Ht 172.7 cm; Wt 95.7 kg
--- NOTE | 2018-07-07 12:40 | NUR ---
GIACOMO TRUJILLO presented to unit via WC from ED, accompanied by SELF, with c/o WATER BROKE/URINARY FREQUENCY. GIACOMO TRUJILLO weighed, gowned, voided, and to bed. EFHM and TOCO applied, VS taken. GIACOMO TRUJILLO oriented to bed controls, call light, TV, heat, and A/C controls.
[2018-07-07 12:50] VITALS: BP 135/73
--- NOTE | 2018-07-07 13:05 | NUR ---
DR BERNARD CALLED, UPDATE GIVEN, NEW ORDERS RECEIVED.
[2018-07-07 13:23] LABS: BILIRUBIN,URINE NEGATIVE (NEGATIVE); CLARITY,URINE VERY CLOUDY; COLOR,URINE YELLOW; GLUCOSE, URINE (UA) NEGATIVE (NEGATIVE); KETONES,URINE NEGATIVE (NEGATIVE); LEUKOCYTE ESTERASE ,URINE 3+ (NEGATIVE); NITRITE,URINE POSITIVE (NEGATIVE); PH,URINE 6 (5-9); PROTEIN,URINE 3+ (NEGATIVE); UROBILINOGEN,URINE NORMAL (NORMAL)
[2018-07-07 13:43] LABS: BACTERIA,URINE LARGE /HPF; WBC,URINE TNTC /HPF
[2018-07-07 13:49] LABS: AMPHETAMINE SCREEN, URINE NEGATIVE (NEGATIVE); BARBITURATE SCREEN URINE NEGATIVE (NEGATIVE); BENZODIAZEPINES SCREEN URINE NEGATIVE (NEGATIVE); CANNABINOID SCREEN, URINE NEGATIVE (NEGATIVE); COCAINE SCREEN URINE NEGATIVE (NEGATIVE); METHADONE STAT NEGATIVE (NEGATIVE); METHAMPHETAMINE SCREEN URINE S NEGATIVE (NEGATIVE); OPIATE SCREEN URINE NEGATIVE (NEGATIVE); OXYCODONE STAT NEGATIVE (NEGATIVE); PROPOXYPHENE STAT NEGATIVE (NEGATIVE); TRICYCLIC ANTIDEPRESSANTS SCRE NEGATIVE (NEGATIVE)
--- NOTE | 2018-07-07 14:30 | NUR ---
DR BERNARD CALLED WITH LABS, NEW ORDERS RECEIVED, PLAN OF CARE UPDATED WITH PT, EFM AND TOCO DISCONTINUED. PT VERBALIZES UNDERSTANDING.
[2018-07-07] MEDS ORDERED: D5 LR IV SOLUTION 1,000 ML IV SCH (14:45)
[2018-07-07] MEDS ORDERED: GBPN600T PO (14:54)
[2018-07-07] MEDS: ceFAZolin 2 GM IV Premixed 50 ML IV SCH ×2 (15:05→18:57)
--- NOTE | 2018-07-07 15:05 | NUR ---
IV STARTED X 1 STICK TO PT LT HAND.
--- NOTE | 2018-07-07 15:06 | NUR ---
DR BERNARD CALLED, PT REQUESTING TO EAT AND WANTS TO KNOW WHEN SHE WILL BE DISCHARGED HOME, NEW ORDERS RECEIVED.
--- NOTE | 2018-07-07 15:14 | NUR ---
TYLENOL 1000MG GIVEN PO FOR C/O PAIN, PT ORDERING LUNCH TRAY.
[2018-07-07] MEDS ORDERED: ACETAMINOPHEN 500 MG TAB (TYLENOL) PO PRN (15:15)
--- NOTE | 2018-07-07 18:45 | NUR ---
DR BERNARD HERE, VISITING WITH PT, NEW ORDERS RECEIVED.
--- NOTE | 2018-07-07 18:53 | History & Physical-OB/GYN ---
History of Present Illness History of Present Illness Reason for visit/HPI with pain while urinating Date of Admission 07/07/2018 Date Seen by a Provider: Jul 07, 2018 Time Seen by a Provider: 18:30 I consulted on this patient on 07/07/18 18:47 Attending Physician Bucky Paula DO Admitting Physician Bucky Paula DO Consult Allergies and Home Medications Allergies Coded Allergies: Penicillins (Verified Allergy, Unknown, RASH, 09/22/17) amoxicillin (Verified Allergy, Unknown, 09/22/17) meperidine (Verified Allergy, Unknown, 12/29/17) Home Medications Gabapentin 600 Mg Tablet, 600 MG PO BID, (Reported) Vit W-Ca,Fe,FA(<1 mg) 1 Each Tablet, 1 EACH PO DAILY, (Reported) Patient Home Medication List Home Medication List Reviewed: Yes Past Otxuvzn-Blypxh-Wyyojp Hx Patient Social History Former Smoker, Quit: September 12, 2016 Type Used: Cigarettes Physical Abuse Screen: No Sexual Abuse: No Recent Foreign Travel: No Contact w/other who traveled: No Recent Hopitalizations: No Recent Infectious Disease Expo: No Immunizations Up To Date Date of Influenza Vaccine: Feb 21, 2018 Seasonal Allergies Seasonal Allergies: No Surgeries No Respiratory No Cardiovascular No Neurological No Reproductive System Expected Date of Delivery: Jul 07, 2018 Hx : 3 Hx Para: 2 Hx Reproductive Disorders: No Genitourinary No Gastrointestinal Yes Gall Bladder Disease Musculoskeletal Yes Chronic Back Pain Endocrine History of Endocrine Disorders: No HEENT History of HEENT Disorders: No Cancer No Psychosocial History of Psychiatric Problem: No Integumentary History of Skin or Integumenta: No Blood Transfusions History of Blood Disorders: No Adverse Reaction to a Blood Tr: No Review of Systems Constitutional: no symptoms reported EENTM: see HPI Respiratory: no symptoms reported Cardiovascular: no symptoms reported Genitourinary: dysuria : Yes Expected Date of Delivery: Jul 07, 2018 LMP: Sep 30, 2017 Musculoskeletal: no symptoms reported Skin: no symptoms reported Psychiatric/Neurological: No Symptoms Reported Physical Exam Physical Exam Vital Signs Vital Signs Date Time Temp Pulse Resp B/P (MAP) Pulse Ox O2 Delivery O2 Flow Rate FiO2 07/07/18 13:20 97.6 07/07/18 12:50 98.5 104 20 135/73 (93) Room Air Capillary Refill : Labs Laboratory Tests 07/07/18 12:50: Urine Color YELLOW, Urine Clarity VERY CLOUDYH, Urine pH 6, Urine Specific Sanford 1.020, Urine Protein 3+H, Urine Glucose (UA) NEGATIVE, Urine Ketones NEGATIVE, Urine Nitrite POSITIVEH, Urine Bilirubin NEGATIVE, Urine Urobilinogen NORMAL, Urine Leukocyte Esterase 3+H, Urine RBC (Auto) 3+H, Urine RBC NONE, Urine WBC TNTCH, Urine Squamous Epithelial Cells NONE, Urine Crystals NONE, Urine Bacteria LARGEH, Urine Casts NONE, Urine Mucus MODERATEH, Urine Culture Indicated YES, Urine Opiates Screen NEGATIVE, Urine Oxycodone Screen NEGATIVE, Urine Methadone Screen NEGATIVE, Urine Propoxyphene Screen NEGATIVE, Urine Barbiturates Screen NEGATIVE, Ur Tricyclic Antidepressants Screen NEGATIVE, Urine Phencyclidine Screen NEGATIVE, Urine Amphetamines Screen NEGATIVE, Urine Methamphetamines Screen NEGATIVE, Urine Benzodiazepines Screen NEGATIVE, Urine Cocaine Screen NEGATIVE, Urine Cannabinoids Screen NEGATIVE Assessment/Plan Assessment and Plan Intrauterine at 40 weeks Pelvic Pain UTI Plan: Ms. Ross received two doses of IV antibiotics. I will discharge to home with Macrobid and Pyridium. She will be instructed to call Dr. Amezcua's office first thing Monday morning. Admission Diagnosis Admission Status: Observation Reason for Inpatient Admission: Intrauterine at 40 weeks Pelvic Pain UTI BUCKY PAULA DO Jul 07, 2018 18:53
[2018-07-07] MEDS ORDERED: NITR-65 PO (18:57)
[2018-07-07] MEDS ORDERED: PHEN-640 PO (18:59)
[2018-07-07] MEDS ORDERED: PHENAZOPYRIDINE 100 MG (PYRIDIUM) TABLET PO ONE ×2 (19:00→19:15)
[2018-07-07] MEDS ORDERED: PHENAZOPYRIDINE 100 MG (PYRIDIUM) TABLET ONE ×3 (19:06→20:01)
[2018-07-07 19:45] VITALS: BP 123/60
--- NOTE | 2018-07-07 20:06 | NUR ---
Discharge instructions verbalized with pt, pt verbalized understanding. labor precautions given. pt will follow up with this week in the office.
== END 2018-07-07 20:06 | disposition home or self-care (01) ==
LOC: WSo 12:35 → LDRP 12:36 → WSo 20:06
PROVIDERS: ATTEND Obstetrics & Gynecology
DX: O23.43 Unspecified infection of urinary tract in pregnancy, third trimester (principal); O99.89 Other specified diseases and conditions complicating pregnancy, childbirth and the puerperium; R10.2 Pelvic and perineal pain; Z3A.40 40 weeks gestation of pregnancy
CPT/HCPCS: 80306; 81000; 87077; 87088; 87186; 90471; 96361; 96374; 96376; 99214

== ENCOUNTER 2018-07-23 15:21 | Inpatient (IN) | payer MEDICAID ==
[2018-07-23] VITALS (15 sets, daily range): BP systolic 117–145; BP diastolic 58–81
[~2018-07-23] VITALS: Ht 172.7 cm; Wt 95.9 kg
--- NOTE | 2018-07-23 15:15 | NUR ---
GIACOMO TRUJILLO presented to unit from Dr. Amezcua's office, accompanied by family, with c/o INDUCTION OF LABOR. GIACOMO TRUJILLO weighed, gowned, voided, and to bed. EFHM and TOCO applied, VS taken. GIACOMO TRUJILLO oriented to bed controls, call light, TV, heat, and A/C controls.
[~2018-07-23 15:21] MED LIST changes: +GBPN600T PO; +NITR-65 PO; +PHEN-640 PO
[2018-07-23] MEDS ORDERED: LACTATED RINGERS 1,000 ML IV ONE ×2 (16:05→16:22)
[2018-07-23] MEDS ORDERED: TERBUTALINE INJ 1 MG/ML (BRETHINE) AMP SC PRN (16:15)
[2018-07-23] MEDS ORDERED: D5 LR IV SOLUTION 1,000 ML IV ONE (16:23)
[2018-07-23 16:33] LABS: AMPHETAMINE SCREEN, URINE NEGATIVE (NEGATIVE); BARBITURATE SCREEN URINE NEGATIVE (NEGATIVE); BENZODIAZEPINES SCREEN URINE NEGATIVE (NEGATIVE); CANNABINOID SCREEN, URINE NEGATIVE (NEGATIVE); COCAINE SCREEN URINE NEGATIVE (NEGATIVE); METHADONE STAT NEGATIVE (NEGATIVE); METHAMPHETAMINE SCREEN URINE S NEGATIVE (NEGATIVE); OPIATE SCREEN URINE NEGATIVE (NEGATIVE); OXYCODONE STAT NEGATIVE (NEGATIVE); PROPOXYPHENE STAT NEGATIVE (NEGATIVE); TRICYCLIC ANTIDEPRESSANTS SCRE NEGATIVE (NEGATIVE)
[2018-07-23] MEDS: D5 LR IV SOLUTION 1,000 ML IV SCH (16:40)
--- NOTE | 2018-07-23 16:57 | History & Physical-OB ---
OB - Chief Complaint & HPI Date/Time Date of Admission: Date of Admission: Jul 23, 2018 at 15:21 Date seen by a Provider: Jul 23, 2018 Time Seen by a Provider: 14:00 Chief Complaint/History OB-Reason for Admission/Chief: Induction of Labor Hx : 3 Hx Para: 2 Expected Date of Delivery: Jul 07, 2018 Gestational Age in Weeks: 42 Gestational Age in Days: 2 Indication for induction: other (Post term) Other reason for admission: This poorly compliant patient with limited care did show up for todays office visit at 42.2 weeks. She underwent NST in the office, and was sent upstairs for induction due to concerns of further noncompliance as well as post term . Admission Nurse Assessment Rev: Yes History of Labs A pos Antibody neg RI RPR NR HBsAg NR HIV NR GC neg GBS neg Allergies and Home Medications Allergies Coded Allergies: Penicillins (Verified Allergy, Unknown, RASH, 09/22/17) amoxicillin (Verified Allergy, Unknown, 09/22/17) codeine (Verified Allergy, Unknown, 07/23/18) meperidine (Verified Allergy, Unknown, 12/29/17) sulfamethoxazole (Verified Allergy, Unknown, 07/23/18) trimethoprim (Verified Allergy, Unknown, 07/23/18) Home Medications Gabapentin 600 Mg Tablet, 600 MG PO BID, (Reported) Nitrofurantoin Monohyd/M-Cryst 100 Mg Capsule, 1 TAB PO BID Prescribed by: ROB BERNARD on 07/07/181856 Phenazopyridine HCl 200 Mg Tablet, 1 TAB PO Q8H Prescribed by: ROB BERNARD on 07/07/181858 Vit W-Ca,Fe,FA(<1 mg) 1 Each Tablet, 1 EACH PO DAILY, (Reported) Patient Home Medication List Home Medication List Reviewed: Yes OB - History Hx of Present Care: No (very limited poor compliance with follow ups) Obstetrical Complications: None Medical Complications: Other (History of illicit drug use) Delivery History Hx Blood Disorders: No Adverse Rxn to Tranfusion: No Patient Past Medical History see above Immunizations Date of Influenza Vaccine: Feb 21, 2018 OB - Admission Exam Physical Exam HEENT: NCAT Heart: Rhythm Normal Abdomen: Gravid Extremities: Normal Reflexes: Normal Cervical Dilatation: 1cm Effacement: 50% Station: -2 Membranes: Intact Heart Rate: 130's Accelerations: No Accelerations Decelerations: No Decelerations Short Term Variability: Present Freezer Unloader Variability: Average (6-25) Contractions on Admission: >10 Minutes Apart Intensity: Mild Labs Laboratory Tests Test 07/23/18 15:50 Range/Units Urine Opiates Screen NEGATIVE NEGATIVE Urine Oxycodone Screen NEGATIVE NEGATIVE Urine Methadone Screen NEGATIVE NEGATIVE Urine Propoxyphene Screen NEGATIVE NEGATIVE Urine Barbiturates Screen NEGATIVE NEGATIVE Ur Tricyclic Antidepressants Screen NEGATIVE NEGATIVE Urine Phencyclidine Screen NEGATIVE NEGATIVE Urine Amphetamines Screen NEGATIVE NEGATIVE Urine Methamphetamines Screen NEGATIVE NEGATIVE Urine Benzodiazepines Screen NEGATIVE NEGATIVE Urine Cocaine Screen NEGATIVE NEGATIVE Urine Cannabinoids Screen NEGATIVE NEGATIVE OB - Assessment/Plan/Diagnosis Assessment Assessment: induction of labor Admission Dx 33 yo @ 42.2 weeks Poor compliance Limited care History of illicit drug use and positive UDS Post term Admission Status: Inpatient Order (span 2 midnights) Reason for Inpatient Admission: induction of labor Plan Plan: Induction Induction Method: per Misoprostol Protocol MALINI WEATHERS DO Jul 23, 2018 16:57
[2018-07-23 16:59] LABS: BASOPHILS % (AUTO) 0 % (0-10); EOSINOPHILS # (AUTO) 0.4 10^3/uL (0.0-0.3); EOSINOPHILS % (AUTO) 3 % (0-10); HEMATOCRIT 39 % (35-52); HEMOGLOBIN 12.9 G/DL (11.5-16.0); LYMPHOCYTES # (AUTO) 1.8 X 10^3 (1.0-4.0); LYMPHOCYTES % (AUTO) 16 % (12-44); MEAN CORPUSCULAR HEMOGLOBIN 29 PG (25-34); MEAN CORPUSCULAR HGB CONC 33 G/DL (32-36); MEAN CORPUSCULAR VOLUME 87 FL (80-99); MEAN PLATELET VOLUME 10.9 FL (7.4-10.4); MONOCYTES # (AUTO) 0.8 X 10^3 (0.0-1.0); MONOCYTES % (AUTO) 7 % (0-12); NEUTROPHILS # (AUTO) 8.5 X 10^3 (1.8-7.8); NEUTROPHILS % (AUTO) 74 % (42-75); PLATELET COUNT 261 10^3/uL (130-400); RED CELL DISTRIBUTION WIDTH 13.9 % (10.0-14.5); WHITE BLOOD COUNT 11.5 10^3/uL (4.3-11.0)
[2018-07-23] MEDS ORDERED: MISOPROSTOL 100 MCG (CYTOTEC) TAB PO NR (17:00)
[2018-07-23] MEDS ORDERED: FAMOTIDINE 20MG/2ML IV (PEPCID) ONE (18:16)
[2018-07-23] MEDS: FAMOTIDINE 20MG/2ML IV (PEPCID) IVP SCH (18:21)
[2018-07-23] MEDS: ACETAMINOPHEN 500 MG TAB (TYLENOL) PO PRN (20:44)
[2018-07-23] MEDS ORDERED: FAMOTIDINE 20MG/2ML IV (PEPCID) IVP SCH (21:00)
[2018-07-23] MEDS ORDERED: MISOPROSTOL 100 MCG (CYTOTEC) TAB PO SCH (21:00)
--- NOTE | 2018-07-23 21:24 | NUR ---
Update given to Dr. Amezcua, new orders received.
[2018-07-23] MEDS: CATHETER FLUSH 10 ML SYR IV SCH (22:05)
[2018-07-23] MEDS: MISOPROSTOL 100 MCG (CYTOTEC) TAB PO SCH (22:09)
--- NOTE | 2018-07-23 22:15 | NUR ---
Report to Tasha CASTRO.
[2018-07-23] MEDS ORDERED: HYDROmorphone 2 MG/ML VIAL (DILAUDID) IV PRN (23:00)
[2018-07-24] VITALS (70 sets, daily range): BP systolic 106–171; BP diastolic 56–94
[2018-07-24] MEDS: D5 LR IV SOLUTION 1,000 ML IV SCH ×2 (00:01→07:40)
[2018-07-24] MEDS: MISOPROSTOL 100 MCG (CYTOTEC) TAB PO SCH ×2 (02:11→06:18)
[2018-07-24] MEDS ORDERED: OXYTOCIN/NORMAL SALINE 500 ML IV SCH ×2 (06:16→21:37)
[2018-07-24] MEDS: CATHETER FLUSH 10 ML SYR IV SCH (06:18)
[2018-07-24] MEDS: ACETAMINOPHEN 500 MG TAB (TYLENOL) PO PRN (06:22)
[2018-07-24] MEDS: FAMOTIDINE 20MG/2ML IV (PEPCID) IVP SCH (06:23)
[2018-07-24] MEDS ORDERED: LACTATED RINGERS 1,000 ML IV ONE ×2 (09:16→12:46)
[2018-07-24] MEDS ORDERED: SUFENTA 0.6MCG/ML BUPIVA 0.125 100 ML ONE (09:17)
[2018-07-24] MEDS ORDERED: ONDANSETRON 4 MG/2 ML (SDV) Z0FRAN IVP PRN (10:15)
[2018-07-24] MEDS ORDERED: ONDANSETRON 4 MG/2 ML (SDV) Z0FRAN ONE (10:25)
--- NOTE | 2018-07-24 10:30 | NUR ---
zofran given IV as ordered for nausea. family remains at bedside.
--- NOTE | 2018-07-24 12:05 | NUR ---
dr españa notified of patient current pitocin infusion, pain level, and contraction pattern. no new orders at this time.
--- NOTE | 2018-07-24 12:10 | NUR ---
pastoral care notified of patient request for visit.
[2018-07-24] MEDS ORDERED: fentaNYL INJECTION 100 MCG/2 ML AMP ONE (12:47)
[2018-07-24] MEDS ORDERED: METOCLOPRAMIDE INJ 10 MG/2 ML (REGLAN) IV PRN (13:00)
[2018-07-24] MEDS ORDERED: diphenhydrAMINE 50 MG/ML INJ (BENADRYL) IV PRN (13:00)
[2018-07-24] MEDS ORDERED: NALOXONE 0.4 MG/ML 1 ML (NARCAN) VIAL IV PRN ×2 (13:00)
[2018-07-24] MEDS ORDERED: ONDANSETRON 4 MG/2 ML (SDV) Z0FRAN IV PRN (13:00)
[2018-07-24] MEDS ORDERED: EPIDURAL (SUFENTA 0.6MCG/ML BUPIVA 0.125%) 100 ML BAG EPI PRN (13:00)
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
[2018-07-24] MEDS ORDERED: LIDOCAINE/EPI 2% 1:200,00 (XYLOCAINE) 10 ML VIAL ONE (19:55)
[2018-07-24] MEDS ORDERED: WITCH HAZEL(TUCKS) 40 EA JAR TOP PRN (21:45)
[2018-07-24] MEDS ORDERED: MEASLES,MUMPS,RUBELLA 1 EA INJ SQ ONE (21:45)
[2018-07-24] MEDS ORDERED: TETANUS,DIPTH,PERTUSS P/F (BOOSTRIX) 0.5 ML VIAL IM ONE (21:45)
[2018-07-24] MEDS ORDERED: BENZOCAINE/MENTHOL (DERMOPLAST) 56 ML CAN TP PRN (21:45)
--- NOTE | 2018-07-24 21:45 | NUR ---
epidural cath removed. pt tolerated well.
--- NOTE | 2018-07-24 21:45 | OB Labor & Delivery Record ---
L&D History Date of Service Date of Service: Jul 24, 2018 History Expected Date of Delivery: Jul 07, 2018 Gestational Age in Weeks: 42 Hx : 3 Hx Para: 2 Complications Events: Routine care (Limited care, with poor compliance) Operative Indications (Cesarea: N/A-Vaginal Delivery Intrapartal Events: None L&D Stage1 Stage One Onset of Labor - Date: Jul 24, 2018 Monitors and Tracing Monitor Mode: External Heart Rate: 115 Monitor Accelerations: Uniform Monitor Decelerations: None Station: 0 Diamond Driller Helper Variability: Average (6-10) Short Term Variability: Present Presentation: Vertex Vital Signs VS - Last 72 Hours, by Label 07/23/18 07/23/18 07/23/18 07/23/18 15:20 16:30 17:00 17:30 Temp 97.9 Pulse 97 96 87 105 Resp 16 16 16 16 B/P (MAP) 129/75 (93) 129/71 (90) 118/60 (79) 128/71 (90) O2 Delivery Room Air Room Air Room Air Room Air 07/23/18 07/23/18 07/23/18 07/23/18 18:00 18:30 19:00 19:30 Pulse 78 94 91 Resp 16 16 16 B/P (MAP) 122/58 (79) 138/65 (89) 125/62 (83) O2 Delivery Room Air Room Air Room Air Room Air 07/23/18 07/23/18 07/23/18 07/23/18 20:00 20:30 21:00 21:30 Pulse 90 88 102 85 Resp 16 16 16 16 B/P (MAP) 117/59 (78) 138/67 (90) 134/81 (98) 144/76 (98) O2 Delivery Room Air Room Air Room Air Room Air 07/23/18 07/23/18 07/23/18 07/23/18 22:00 22:30 22:30 23:00 Temp 98.2 Pulse 86 85 83 Resp 16 16 16 B/P (MAP) 120/58 (78) 145/63 (90) 133/74 (93) O2 Delivery Room Air Room Air Room Air Room Air 07/23/18 07/24/18 07/24/18 07/24/18 23:30 00:00 01:00 02:00 Temp 98.2 97.6 Pulse 82 83 95 81 Resp 16 16 16 16 B/P (MAP) 118/72 (87) 133/75 (94) 123/70 (87) 136/73 (94) O2 Delivery Room Air Room Air Room Air Room Air 07/24/18 07/24/18 07/24/18 07/24/18 03:00 04:00 05:00 06:45 Temp 98.1 Pulse 78 83 85 83 Resp 16 16 16 18 B/P (MAP) 126/74 (91) 130/65 (86) 121/61 (81) 135/80 (98) O2 Delivery Room Air Room Air Room Air Room Air 07/24/18 07/24/18 07/24/18 07/24/18 07:00 07:15 07:30 07:45 Pulse 78 83 92 93 Resp 18 18 18 18 B/P (MAP) 138/80 (99) 131/77 (95) 133/74 (93) 128/65 (86) O2 Delivery Room Air Room Air Room Air Room Air 07/24/18 07/24/18 07/24/18 07/24/18 08:00 08:15 08:30 08:45 Temp 99.2 Pulse 90 96 76 82 Resp 18 20 20 20 B/P (MAP) 131/69 (89) 133/69 (90) 120/64 (82) 121/64 (83) O2 Delivery Room Air Room Air Room Air Room Air 07/24/18 07/24/18 07/24/18 07/24/18 09:15 09:30 09:45 10:30 Pulse 81 88 86 83 Resp 20 18 18 20 B/P (MAP) 122/72 (89) 127/57 (80) 118/69 (85) 143/82 (102) O2 Delivery Room Air Room Air Room Air Room Air 07/24/18 07/24/18 07/24/18 07/24/18 11:00 11:15 11:30 12:00 Temp 97.8 Pulse 74 75 90 78 Resp 20 20 18 18 B/P (MAP) 138/63 (88) 136/69 (91) 124/77 (93) 133/71 (91) O2 Delivery Room Air Room Air Room Air Room Air 07/24/18 07/24/18 07/24/18 07/24/18 12:15 12:30 12:45 12:55 Pulse 90 90 80 79 Resp 20 20 20 20 B/P (MAP) 124/77 (93) 124/77 (93) 135/82 (99) 136/58 (84) Pulse Ox 93 O2 Delivery Room Air Room Air Room Air Room Air 07/24/18 07/24/18 07/24/18 07/24/18 13:00 13:05 13:10 13:15 Pulse 84 81 88 80 Resp 20 20 20 20 B/P (MAP) 121/57 (78) 122/66 (84) 129/79 (96) 126/58 (80) Pulse Ox 100 100 98 98 O2 Delivery Room Air Room Air Room Air Room Air 07/24/18 07/24/18 07/24/18 07/24/18 13:20 13:25 13:30 13:35 Pulse 79 94 88 86 Resp 20 20 20 20 B/P (MAP) 131/76 (94) 129/75 (93) 142/64 (90) 139/64 (89) Pulse Ox 95 95 100 100 O2 Delivery Room Air Room Air Room Air Room Air 07/24/18 07/24/18 07/24/18 07/24/18 13:45 14:00 14:20 14:35 Pulse 75 81 79 90 Resp 20 20 20 20 B/P (MAP) 130/70 (90) 121/56 (77) 130/56 (80) 123/94 (104) Pulse Ox 99 100 98 98 O2 Delivery Room Air Room Air Room Air Room Air 07/24/18 07/24/18 07/24/18 07/24/18 14:50 15:05 15:20 15:35 Pulse 90 76 78 78 Resp 20 18 18 18 B/P (MAP) 133/80 (97) 131/76 (94) 121/77 (92) 130/75 (93) Pulse Ox 98 100 100 100 O2 Delivery Room Air Room Air Room Air Room Air 07/24/18 07/24/18 07/24/18 07/24/18 15:50 16:05 16:20 16:35 Temp 97.8 Pulse 90 93 74 76 Resp 18 18 18 18 B/P (MAP) 126/69 (88) 133/87 (102) 137/75 (95) 134/84 (101) Pulse Ox 100 100 100 100 O2 Delivery Room Air Room Air Room Air Room Air 07/24/18 07/24/18 07/24/18 07/24/18 16:50 17:05 17:20 17:30 Pulse 98 94 81 83 Resp 18 20 20 20 B/P (MAP) 145/86 (105) 141/91 (108) 141/86 (104) 134/82 (99) Pulse Ox 100 100 100 100 O2 Delivery Room Air Room Air Room Air Room Air 07/24/18 07/24/18 07/24/18 07/24/18 17:48 18:05 18:20 18:35 Temp 98.4 Pulse 94 103 87 87 Resp 20 20 20 20 B/P (MAP) 137/78 (97) 135/58 (83) 141/66 (91) 141/66 (91) Pulse Ox 100 100 O2 Delivery Room Air Room Air Room Air Room Air 07/24/18 07/24/18 07/24/18 07/24/18 18:50 19:05 19:20 19:35 Temp 97.1 Pulse 85 88 81 89 Resp 20 20 20 20 B/P (MAP) 145/62 (89) 119/60 (79) 136/69 (91) 136/75 (95) O2 Delivery Room Air Room Air Room Air Room Air 07/24/18 07/24/18 07/24/18 07/24/18 19:50 20:05 20:20 20:35 Temp 99.5 Pulse 88 111 96 90 Resp 20 20 20 20 B/P (MAP) 140/63 (88) 167/94 (118) 171/80 (110) 153/72 (99) O2 Delivery Room Air Room Air Room Air Room Air 07/24/18 07/24/18 21:00 21:15 Pulse 108 97 Resp 20 20 B/P (MAP) 128/68 (88) 142/85 (104) O2 Delivery Room Air Room Air Rupture of Membranes Spontaneous Ruture of Membrane: No Amniotic Membrane Rupture Time: 1226 Amniotic Membrane Fluid Desc.: Meconium Stained Vaginal Bleeding Description: Normal Show Induction/Anesthesia Epidural Cath Placement - Time: 1259 Progress/Notes Cytotec given overnight, AROM and Pitocin started approx 0800 this morning, progressed dose to 12/mu/min, and received epidural for pain control. Progressed to complete and +1 station L&D Stage2 Stage Two Stage II Date: Jul 24, 2018 Monitors and Tracing Monitor Mode: External Heart Rate: 115 Monitor Decelerations: Variable Half-Way Variability: Average (6-10) Short Term Variability: Present Position: Right Occiput Anterior Presentation: Vertex Cord Descript/Complications Cord Vessel Description: 3 Vessels Delivery Type Delivery Method: Spontaneous Vaginal Anterior Shoulder: Right Episiotomy/Perineal Laceration Laceraction(s)/Extensions: Yes (midline) Episiotomy Description: Midline Degree (describe repair) midline episiotomy repaired using 3-0 and 2-0 vicryl in usual fashion Condition of Infant Delivery 1 minute Comment: 9 5 minute Comment: 9 Notes Live female weight 7lbs 14 oz Condition of Condition of Infant: Living Exam: No Observed Abnormalities Resuscitation Resuscitation: N/A - Spontaneous Resp L&D Stage3 Stage Three Stage III Date: Jul 24, 2018 Pictocin Pitocin Administration mu/min: 12 Pitocin ml/hr: 12 Pitocin Administration Comment: Wide open 30 mu at delivery of placenta Placenta Delivery Placenta Delivery: Spontaneous Delivery Summary Summary Estimated blood loss (mL): 400 Attending at delivery: Malini Weathers DO Condition of Delivery Examined: Cervix Examined, Uterus Explored Post Hemorrhage: No Condition of Mother stable Condition of Infant (s) stable MALINI WEATHERS DO Jul 24, 2018 21:45
[2018-07-24] MEDS ORDERED: CATHETER FLUSH 10 ML SYR IV SCH (22:00)
--- NOTE | 2018-07-24 22:30 | NUR ---
pt assisted to bathroom. positive void. pericare completed. pt ambulated to w'c. pt taken down to room 310. orientated to room. pt denies any needs at this time. will continue to monitor.
[2018-07-24] MEDS: IBUPROFEN 600 MG (MOTRIN) TAB PO SCH (22:35)
[2018-07-25 03:00] VITALS: BP 98/53
[2018-07-25] MEDS: IBUPROFEN 600 MG (MOTRIN) TAB PO SCH ×4 (04:37→20:50)
[2018-07-25 06:17] LABS: BASOPHILS % (AUTO) 0 % (0-10); EOSINOPHILS # (AUTO) 0.2 10^3/uL (0.0-0.3); EOSINOPHILS % (AUTO) 1 % (0-10); HEMATOCRIT 28 % (35-52); HEMOGLOBIN 9.1 G/DL (11.5-16.0); LYMPHOCYTES % (AUTO) 14 % (12-44); MEAN CORPUSCULAR HEMOGLOBIN 29 PG (25-34); MEAN CORPUSCULAR HGB CONC 33 G/DL (32-36); MEAN CORPUSCULAR VOLUME 89 FL (80-99); MEAN PLATELET VOLUME 11.1 FL (7.4-10.4); MONOCYTES # (AUTO) 1.1 X 10^3 (0.0-1.0); MONOCYTES % (AUTO) 8 % (0-12); NEUTROPHILS % (AUTO) 77 % (42-75); PLATELET COUNT 197 10^3/uL (130-400); RED CELL DISTRIBUTION WIDTH 13.3 % (10.0-14.5); WHITE BLOOD COUNT 14.3 10^3/uL (4.3-11.0)
[2018-07-25] MEDS ORDERED: PRENATAL VITAMIN 1 EA TAB PO SCH (07:00)
--- NOTE | 2018-07-25 07:29 | Anesthesia-Regional Post-Op ---
Regional Patient Condition Mental Status: Alert, Oriented x3 Circulation: Same as Pre-Op Headache: Absent Sensation: Full Recovery Motor Block: Absent Post Op Complications Complications None Follow Up Care/Instructions Patient Instructions None needed. Anesthesia/Patient Condition Patient is doing well, no complaints, stable vital signs, no apparent adverse anesthesia problems. No complications reported per nursing. JUN ARZIA CRNA Jul 25, 2018 07:29
--- NOTE | 2018-07-25 09:17 | Postpartum Progress Note ---
Note Note Day # 1 Subjective: Patient is without complaints. Ambulating, voiding. Tolerating a regular diet without nausea or vomiting. Normal lochia. Pain is well controlled with oral pain medications. Objective: Physical Exam: General - Alert and oriented, no apparent distress Abdomen - Soft, appropriately tender to palpation, non-distended, fundus firm at umbilicus Extremities - no edema, negative Sammi's bilaterally Assessment: PPD 1 NVD Acute blood loss anemia Plan: Routine care. Encourage breast feeding. Encourage ambulation. Ferrous sulfate supplementation. Plan for discharge tomorrow Vitals - Labs Vital Signs - I&O Vital Signs Date Time Temp Pulse Resp B/P (MAP) Pulse Ox O2 Delivery O2 Flow Rate FiO2 07/25/18 03:00 98.3 89 20 98/53 (68) Room Air 07/24/18 22:30 100 20 106/57 (73) Room Air 07/24/18 22:15 97.8 93 20 143/65 (91) Room Air 07/24/18 22:00 102 20 146/68 (94) Room Air 07/24/18 21:45 106 20 149/65 (93) Room Air 07/24/18 21:30 98.5 92 20 135/61 (85) Room Air 07/24/18 21:15 97 20 142/85 (104) Room Air 07/24/18 21:00 108 20 128/68 (88) Room Air 07/24/18 20:35 99.5 90 20 153/72 (99) Room Air 07/24/18 20:20 96 20 171/80 (110) Room Air 07/24/18 20:05 111 20 167/94 (118) Room Air 07/24/18 19:50 88 20 140/63 (88) Room Air 07/24/18 19:35 89 20 136/75 (95) Room Air 07/24/18 19:20 81 20 136/69 (91) Room Air 07/24/18 19:05 97.1 88 20 119/60 (79) Room Air 07/24/18 18:50 85 20 145/62 (89) Room Air 07/24/18 18:35 87 20 141/66 (91) Room Air 07/24/18 18:20 87 20 141/66 (91) Room Air 07/24/18 18:05 98.4 103 20 135/58 (83) 100 Room Air 07/24/18 17:48 94 20 137/78 (97) 100 Room Air 07/24/18 17:30 83 20 134/82 (99) 100 Room Air 07/24/18 17:20 81 20 141/86 (104) 100 Room Air 07/24/18 17:05 94 20 141/91 (108) 100 Room Air 07/24/18 16:50 98 18 145/86 (105) 100 Room Air 07/24/18 16:35 76 18 134/84 (101) 100 Room Air 07/24/18 16:20 74 18 137/75 (95) 100 Room Air 07/24/18 16:05 93 18 133/87 (102) 100 Room Air 07/24/18 15:50 97.8 90 18 126/69 (88) 100 Room Air 07/24/18 15:35 78 18 130/75 (93) 100 Room Air 07/24/18 15:20 78 18 121/77 (92) 100 Room Air 07/24/18 15:05 76 18 131/76 (94) 100 Room Air 07/24/18 14:50 90 20 133/80 (97) 98 Room Air 07/24/18 14:35 90 20 123/94 (104) 98 Room Air 07/24/18 14:20 79 20 130/56 (80) 98 Room Air 07/24/18 14:00 81 20 121/56 (77) 100 Room Air 07/24/18 13:45 75 20 130/70 (90) 99 Room Air 07/24/18 13:35 86 20 139/64 (89) 100 Room Air 07/24/18 13:30 88 20 142/64 (90) 100 Room Air 07/24/18 13:25 94 20 129/75 (93) 95 Room Air 07/24/18 13:20 79 20 131/76 (94) 95 Room Air 07/24/18 13:15 80 20 126/58 (80) 98 Room Air 07/24/18 13:10 88 20 129/79 (96) 98 Room Air 07/24/18 13:05 81 20 122/66 (84) 100 Room Air 07/24/18 13:00 84 20 121/57 (78) 100 Room Air 07/24/18 12:55 79 20 136/58 (84) 93 Room Air 07/24/18 12:45 80 20 135/82 (99) Room Air 07/24/18 12:30 90 20 124/77 (93) Room Air 07/24/18 12:15 90 20 124/77 (93) Room Air 07/24/18 12:00 97.8 78 18 133/71 (91) Room Air 07/24/18 11:30 90 18 124/77 (93) Room Air 07/24/18 11:15 75 20 136/69 (91) Room Air 07/24/18 11:00 74 20 138/63 (88) Room Air 07/24/18 10:30 83 20 143/82 (102) Room Air 07/24/18 09:45 86 18 118/69 (85) Room Air 07/24/18 09:30 88 18 127/57 (80) Room Air Labs Laboratory Tests 07/25/18 05:55: White Blood Count 14.3H, Red Blood Count 3.11L, Hemoglobin 9.1#L, Hematocrit 28L , Mean Corpuscular Volume 89, Mean Corpuscular Hemoglobin 29, Mean Corpuscular Hemoglobin Concent 33, Red Cell Distribution Width 13.3, Platelet Count 197, Mean Platelet Volume 11.1H, Neutrophils (%) (Auto) 77H, Lymphocytes (%) (Auto) 14, Monocytes (%) (Auto) 8, Eosinophils (%) (Auto) 1, Basophils (%) (Auto) 0, Neutrophils # (Auto) 11.0H, Lymphocytes # (Auto) 2.0, Monocytes # (Auto) 1.1H, Eosinophils # (Auto) 0.2, Basophils # (Auto) 0.0 MALINI WEATHERS DO Jul 25, 2018 09:17
[2018-07-25] MEDS: DOCUSATE SODIUM 100 MG (COLACE) CAP PO SCH ×2 (09:18→20:50)
[2018-07-25] MEDS: FERROUS SULF 325 MG (IRON) TAB PO SCH (09:18)
--- NOTE | 2018-07-25 09:18 | NUR ---
initial shift assessment completed, see interventions for further. POC reviewed. shower supplies given.
--- NOTE | 2018-07-25 09:25 | NUR ---
up to shower.
--- NOTE | 2018-07-25 11:39 | NUR ---
CM/SS responded to consult. Patient reports has car seat, diapers, bassinet. She does not have a crib or pack n play. Patient is involved in WIC, TANF, and Food Assistance. Discussed community resources like PAT and Healthy Families. Patient was interested in a referral to Healthy Families, referral made. Contacted Vi Escobar as a Safe Sleep instructor and she can bring a pack n play and do her presentation today.
[2018-07-25 12:00] VITALS: BP 123/64
--- NOTE | 2018-07-25 12:41 | NUR ---
pt voices c/o Rt. "kidney" pain. reports hx of UTI's and kidney stones during . finished Macrobid Rx prior to delivery. was called. strait cath order received.
--- NOTE | 2018-07-25 12:55 | NUR ---
[facility] UA specimen collected by Jesus Manuel, [employer] NS instructor and PSALE.
[2018-07-25] MEDS: HYDROcodone/APAP 5 MG/325 MG (LORTAB) TAB PO PRN ×3 (13:10→23:11)
--- NOTE | 2018-07-25 14:38 | NUR ---
strait cath specimen collected, labeled and sent to lab per this RN. pt tolerated procedure well. UA recollected after previous specimen mislabeled.
[2018-07-25 14:46] LABS: BILIRUBIN,URINE NEGATIVE (NEGATIVE); CLARITY,URINE CLEAR; COLOR,URINE YELLOW; GLUCOSE, URINE (UA) NEGATIVE (NEGATIVE); KETONES,URINE NEGATIVE (NEGATIVE); LEUKOCYTE ESTERASE ,URINE 2+ (NEGATIVE); NITRITE,URINE NEGATIVE (NEGATIVE); PH,URINE 5 (5-9); PROTEIN,URINE 1+ (NEGATIVE); UROBILINOGEN,URINE NORMAL (NORMAL)
[2018-07-25 15:08] LABS: BACTERIA,URINE FEW /HPF; SQUAMOUS EPITHELIAL CELL,UR 0-2 /HPF; WBC,URINE 25-50 /HPF
--- NOTE | 2018-07-25 15:22 | NUR ---
pt sister out to nursing desk, pulling off 4th infant security bracelet. pt's sister upset, voices concerns over sister's (pt) mental health. sister states that Toyna "hears voices" and "won't tell you". pt yelling @ sister in hallway stating "she's a habitual liar". instructed pt to return to room since infant is alone.
[2018-07-25 16:12] VITALS: BP 119/69
--- NOTE | 2018-07-25 17:05 | NUR ---
was called with UA results. new orders received for Keflex.
[2018-07-25] MEDS: CEPHALEXIN 250 MG (KEFLEX) CAP PO SCH ×2 (17:51→23:11)
--- NOTE | 2018-07-25 19:30 | NUR ---
report given to next shift.
[2018-07-25 20:30] VITALS: BP 123/60
--- NOTE | 2018-07-25 21:00 | NUR ---
TO ROOM FOR ASSESSMENTS. S/O IN ROOM WITH PT. C/O BACK PAIN.
[2018-07-26] MEDS: IBUPROFEN 600 MG (MOTRIN) TAB PO SCH ×2 (03:08→09:35)
[2018-07-26] MEDS: HYDROcodone/APAP 5 MG/325 MG (LORTAB) TAB PO PRN ×2 (03:08→13:35)
[2018-07-26 04:56] VITALS: BP 118/58
[2018-07-26] MEDS ORDERED: ACHD5005 PO (07:31)
[2018-07-26] MEDS ORDERED: IBUP-844 PO (07:31)
[2018-07-26] MEDS ORDERED: DOCU100C37 PO (07:31)
[2018-07-26] MEDS ORDERED: CEPH250C PO (07:31)
[2018-07-26] MEDS ORDERED: Benzocaine/Menthol TP (07:31)
--- NOTE | 2018-07-26 07:33 | Postpartum Progress Note ---
Note Note Day # 2 Subjective: Patient is without complaints. Ambulating, voiding. Tolerating a regular diet without nausea or vomiting. Normal lochia. Pain is well controlled with oral pain medications. Objective: Physical Exam: General - Alert and oriented, no apparent distress Abdomen - Soft, appropriately tender to palpation, non-distended, fundus firm at umbilicus Extremities - no edema, negative Sammi's bilaterally Assessment: PPD 2 NVD Acute blood loss anemia Plan: Routine care. Encourage breast feeding. Encourage ambulation. Ferrous sulfate supplementation. Plan for discharge today Vitals - Labs Vital Signs - I&O Vital Signs Date Time Temp Pulse Resp B/P (MAP) Pulse Ox O2 Delivery O2 Flow Rate FiO2 07/26/18 04:56 97.6 85 18 118/58 (78) 100 07/25/18 20:30 98.1 94 18 123/60 (81) 99 Room Air 07/25/18 16:12 98.7 92 18 119/69 (86) 100 Room Air 07/25/18 12:00 97.6 100 20 123/64 (83) 100 Room Air Labs Laboratory Tests 07/25/18 14:38: Urine Color YELLOW, Urine Clarity CLEAR, Urine pH 5, Urine Specific [place] 1.025H, Urine Protein 1+H, Urine Glucose (UA) NEGATIVE, Urine Ketones NEGATIVE, Urine Nitrite NEGATIVE, Urine Bilirubin NEGATIVE, Urine Urobilinogen NORMAL, Urine Leukocyte Esterase 2+H, Urine RBC (Auto) 1+H, Urine RBC 2-5H, Urine WBC 25 -50H, Urine Squamous Epithelial Cells 0-2, Urine Crystals NONE, Urine Bacteria FEWH, Urine Casts NONE, Urine Mucus SMALLH, Urine Culture Indicated YES MALINI WEATHERS DO Jul 26, 2018 07:33
--- NOTE | 2018-07-26 07:35 | NUR ---
REPORT GIVEN TO DONALDO CASTRO
--- NOTE | 2018-07-26 07:38 | NUR ---
here. dismissal orders received.
--- NOTE | 2018-07-26 08:05 | NUR ---
up to shower. denies c/o's @ time.
[2018-07-26 09:35] VITALS: BP 113/66
[2018-07-26] MEDS: DOCUSATE SODIUM 100 MG (COLACE) CAP PO SCH (09:35)
[2018-07-26] MEDS: FERROUS SULF 325 MG (IRON) TAB PO SCH (09:35)
[2018-07-26] MEDS: CEPHALEXIN 250 MG (KEFLEX) CAP PO SCH ×2 (09:35→13:35)
--- NOTE | 2018-07-26 09:35 | NUR ---
initial shift assessment completed, see interventions for further. scheduled medications given, see eMar for further.
--- NOTE | 2018-07-26 09:52 | NUR ---
community health outreach worker, Liz, was called r/t pt not receiving pack-n-ply from safe sleep.
--- NOTE | 2018-07-26 10:05 | NUR ---
here to see pt. discussed with this RN pt's drug hx during current . holding 's dismissal until further notice. requesting Liz, licensed clinical social worker, to contact Dr. Hunt r/t concerns.
--- NOTE | 2018-07-26 10:08 | NUR ---
Liz was called. no answer on cell phone. message left to contact per her request.
--- NOTE | 2018-07-26 10:11 | NUR ---
was called with update on pt's status r/t message left with social work.
--- NOTE | 2018-07-26 11:40 | NUR ---
Liz braswell. POC reviewed.
--- NOTE | 2018-07-26 12:02 | NUR ---
CM/SS more concerns voiced from Dr and RNing as far as MOB drug use history. Call to local DCF and spoke with Jessica (track repair supervisor) that the Dr wanted this family seen prior to discharge. Jessica stated that the case had not been assigned yet, left contact information so that when case came through the worker could call.
--- NOTE | 2018-07-26 13:38 | NUR ---
dismissal instructions given. Rx's and follow up appointment reviewed. signature page signed, placed on chart.
[2018-07-26] MEDS ORDERED: TETANUS,DIPTH,PERTUSS P/F (BOOSTRIX) 0.5 ML VIAL IM ONE (13:42)
--- NOTE | 2018-07-26 13:49 | NUR ---
Tdap given in Rt.[email or web address]. see eMar for further.
--- NOTE | 2018-07-26 13:50 | NUR ---
pt dismissed to rooming in status until dismissed from hospital.
--- NOTE | 2018-07-26 14:33 | NUR ---
CM/SS met with HEMANT and her SO, JANIS (Gail) met with the family. A home check will be completed before DCF will proceed with safety planning and offering services to the family. HEMANT was having a difficult time producing a phone number for her brother, with whom she stated she will be staying with. DCF will meet back with her for that information or to do the home check and then will let this telegraphic typewriter repairer know.
--- NOTE | 2018-07-26 16:10 | NUR ---
CM/SS DCF was able to complete home walk through and then safety planning with the patient. Copies of the DCF safety plans were left with RNing to be placed in patient chart. Vi with Safe Sleep program was not able to get to hospital yesterday and will meet with the patient at her home for the presentation and to get her a pack n play. [facility] also referred to Vi Escobar for the Family Preservation program through the [facility].
== END 2018-07-26 13:50 | disposition home or self-care (01) | DRG 807 ==
LOC: LDRP 15:21
PROVIDERS: ADMIT Obstetrics & Gynecology; ATTEND Obstetrics & Gynecology
PROC: 3E0DXGC Introduction of Other Therapeutic Substance into Mouth and Pharynx, External Approach (ICD-10-PCS; 2018-07-23)
PROC: 10E0XZZ Delivery of Products of Conception, External Approach (ICD-10-PCS; principal; 2018-07-24)
PROC: 0W8NXZZ Division of Female Perineum, External Approach (ICD-10-PCS; 2018-07-24)
DX: O48.1 Prolonged pregnancy (principal); O77.0 Labor and delivery complicated by meconium in amniotic fluid; O99.52 Diseases of the respiratory system complicating childbirth; J45.909 Unspecified asthma, uncomplicated; O99.62 Diseases of the digestive system complicating childbirth; K21.9 Gastro-esophageal reflux disease without esophagitis; Z3A.42 42 weeks gestation of pregnancy; Z37.0 Single live birth; Z88.0 Allergy status to penicillin; Z88.1 Allergy status to other antibiotic agents; Z88.2 Allergy status to sulfonamides; Z88.5 Allergy status to narcotic agent; Z91.19 Patient's noncompliance with other medical treatment and regimen
CPT/HCPCS: 36415; 80306; 81000; 85025; 86850; 86900; 86901; 87077; 87088; 87186; 90715

== ENCOUNTER 2020-01-31 19:58 | Emergency (ER) | payer MEDICAID ==
[~2020-01-31] VITALS: Ht 172.7 cm; Wt 83.9 kg
[~2020-01-31 19:58] MED LIST changes: -ACET-77 PO; +ACET-78 PO; +ACHD5005 PO; +Benzocaine/Menthol TP; +CEPH250C PO; +DOCU100C37 PO; +IBUP-844 PO
[2020-01-31] MEDS ORDERED: ALPRAZolam 0.25 MG (XANAX) TAB PO ONE (20:15)
--- NOTE | 2020-01-31 20:16 | ED General ---
General Stated Complaint: DIZZY/SHAKING Source of Information: Patient Exam Limitations: No Limitations History of Present Illness Date Seen by Provider: Jan 31, 2020 Time Seen by Provider: 20:14 Initial Comments To ER by private vehicle with reports of dizziness and shaking that began about 2 days ago. She started Remeron and Effexor 2 weeks ago for anxiety. She reports that symptoms are better when she focuses on something else such as driving. Timing/Duration: 1-2 Days Severity: Moderate Associated Systoms: Denies Symptoms Allergies and Home Medications Allergies Coded Allergies: Penicillins (Verified Allergy, Unknown, RASH, 09/22/17) amoxicillin (Verified Allergy, Unknown, 09/22/17) codeine (Verified Allergy, Unknown, 07/23/18) meperidine (Verified Allergy, Unknown, 12/29/17) sulfamethoxazole (Verified Allergy, Unknown, 07/23/18) trimethoprim (Verified Allergy, Unknown, 07/23/18) Home Medications Cephalexin 250 Mg Capsule, 500 MG PO QID Prescribed by: MALINI WEATHERS on 07/26/18730 Clonazepam 0.5 Mg Tablet, 0.5 MG PO DAILY Prescribed by: BRITTNEY JONES on 01/31/202103 Docusate Sodium 100 Mg Capsule, 100 MG PO BID Prescribed by: MALINI WEATHERS on 07/26/18730 Gabapentin 600 Mg Tablet, 600 MG PO BID, (Reported) Hydrocodone Bit/Acetaminophen 1 Tab Tab, 1 TAB PO Q4H PRN for PAIN-MODERATE Prescribed by: MALINI WEATHERS on 07/26/18730 Ibuprofen 600 Mg Tablet, 600 MG PO Q6H Prescribed by: MALINI WEATHERS on 07/26/18730 Vit W-Ca,Fe,FA(<1 mg) 1 Each Tablet, 1 EACH PO DAILY, (Reported) [Benzocaine/Menthol] 56 ML AEROSOL, 56 ML TP UD PRN for PAIN- SEE INSTRUCTIONS EXTERNAL USE ONLY Prescribed by: MALINI WEATHERS on 07/26/18730 Patient Home Medication List Home Medication List Reviewed: Yes Review of Systems Review of Systems Constitutional: see HPI; No chills, No fever EENTM: see HPI Respiratory: no symptoms reported Cardiovascular: no symptoms reported Genitourinary: no symptoms reported Musculoskeletal: no symptoms reported Skin: no symptoms reported Psychiatric/Neurological: No Symptoms Reported Past Bsxssze-Eyabgy-Bvvrbx Hx Patient Social History Type Used: Cigarettes Former Smoker, Quit: September 12, 2016 Recent Foreign Travel: No Contact w/Someone Who Travel: No Recent Hopitalizations: No Immunizations Up To Date Date of Influenza Vaccine: Mar 28, 2018 Seasonal Allergies Seasonal Allergies: No Past Medical History Surgeries: No Respiratory: Yes Asthma Cardiac: No Neurological: No Reproductive Disorders: No Female Reproductive Disorders: Denies Sexually Transmitted Disease: No HIV/AIDS: No Genitourinary: Yes UTI-Chronic Gastrointestinal: Yes Gall Bladder Disease Musculoskeletal: Yes (ANKYLOSING sPONDYLITIS) Chronic Back Pain Endocrine: No HEENT: No Loss of Vision: Denies Hearing Impairment: Denies Cancer: No Psychosocial: No Integumentary: No Blood Disorders: No Adverse Reaction/Blood Tranf: No Family Medical History AIDS Alcoholism 19 MOTHER Ankylosing spondylitis 19 FATHER GRANDPARENTS (Paternal Grandmother) Arthritis GRANDPARENTS (Maternal Grandparents Paternal Grandparents) Diabetes mellitus GRANDPARENTS (Paternal Grandmother) Fibrocystic disease of breast GRANDPARENTS (Paternal Grandmother) Glioblastoma 19 MOTHER ( 08/10/13 ) Hypercholesterolemia GRANDPARENTS (Paternal Grandmother) Hypertension GRANDPARENTS (Paternal Grandmother) Neoplasm 19 MOTHER ( ) Osteoporosis 19 MOTHER Respiratory disorder GRANDPARENTS (Maternal Grandmother-Emphysema and COPD) Physical Exam Vital Signs Vital Signs - First Documented 01/31/20 20:27 Temp 35.6 Pulse 75 Resp 18 B/P (MAP) 146/103 (117) Pulse Ox 100 O2 Delivery Room Air Capillary Refill : Height, Weight, BMI Height: 5'8.00" Weight: 211lbs. 8.0oz. 95.657446sp; 32.2 BMI Method:Stated General Appearance: No Apparent Distress, WD/WN Eyes: Bilateral Eye Normal Inspection, Bilateral Eye PERRL, Bilateral Eye EOMI HEENT: PERRL/EOMI, TMs Normal Respiratory: No Accessory Muscle Use, No Respiratory Distress Gastrointestinal: Non Tender, Soft Neurologic/Psychiatric: Alert, Oriented x3 Skin: Normal Color, Warm/Dry Progress/Results/Core Measures Suspected Sepsis SIRS Temperature: Pulse: Respiratory Rate: Laboratory Tests 01/31/20 20:34: White Blood Count 8.7 Blood Pressure / Mean: Laboratory Tests 01/31/20 20:34: Creatinine 0.81, Platelet Count 335, Total Bilirubin 0.2 Results/Orders Lab Results Laboratory Tests Test 01/31/20 20:34 Range/Units White Blood Count 8.7 4.3-11.0 10^3/uL Red Blood Count 4.74 3.80-5.11 10^6/uL Hemoglobin 13.7 11.5-16.0 g/dL Hematocrit 42 35-52 % Mean Corpuscular Volume 88 80-99 fL Mean Corpuscular Hemoglobin 29 25-34 pg Mean Corpuscular Hemoglobin Concent 33 32-36 g/dL Red Cell Distribution Width 13.6 10.0-14.5 % Platelet Count 335 130-400 10^3/uL Mean Platelet Volume 9.6 9.0-12.2 fL Immature Granulocyte % (Auto) 0 % Neutrophils (%) (Auto) 56 42-75 % Lymphocytes (%) (Auto) 35 12-44 % Monocytes (%) (Auto) 6 0-12 % Eosinophils (%) (Auto) 2 0-10 % Basophils (%) (Auto) 1 0-10 % Neutrophils # (Auto) 4.8 1.8-7.8 10^3/uL Lymphocytes # (Auto) 3.0 1.0-4.0 10^3/uL Monocytes # (Auto) 0.6 0.0-1.0 10^3/uL Eosinophils # (Auto) 0.2 0.0-0.3 10^3/uL Basophils # (Auto) 0.1 0.0-0.1 10^3/uL Immature Granulocyte # (Auto) 0.0 0.0-0.1 10^3/uL Sodium Level 138 135-145 MMOL/L Potassium Level 4.2 3.6-5.0 MMOL/L Chloride Level 103 98-107 MMOL/L Carbon Dioxide Level 26 21-32 MMOL/L Anion Gap 9 5-14 MMOL/L Blood Urea Nitrogen 9 7-18 MG/DL Creatinine 0.81 0.60-1.30 MG/DL Estimat Glomerular Filtration Rate > 60 BUN/Creatinine Ratio 11 Glucose Level 90 70-105 MG/DL Calcium Level 9.1 8.5-10.1 MG/DL Corrected Calcium 9.0 8.5-10.1 MG/DL Total Bilirubin 0.2 0.1-1.0 MG/DL Aspartate Amino Transf (AST/SGOT) 16 5-34 U/L Alanine Aminotransferase (ALT/SGPT) 17 0-55 U/L Alkaline Phosphatase 47 40-136 U/L Total Protein 7.0 6.4-8.2 GM/DL Albumin 4.1 3.2-4.5 GM/DL Serum Test, Qualitative NEGATIVE NEGATIVE My Orders Orders - BRITTNEY JONES APRN Cbc With Automated Diff (01/31/20 20:11) Comprehensive Metabolic Panel (01/31/20 20:11) Ua Culture If Indicated (01/31/20 20:11) Drug Screen Stat (Urine) (01/31/20 20:11) Hcg,Qualitative Serum (01/31/20 20:11) Alprazolam Tablet (Xanax Tablet) (01/31/20 20:15) Medications Given in ED Current Medications Medications Dose Ordered Sig/Carola Route Start Time Stop Time Status Last Admin Dose Admin Alprazolam 0.5 mg ONCE ONCE PO 01/31/20 20:15 01/31/20 20:16 DC 01/31/20 20:26 0.5 MG Vital Signs/I&O 01/31/20 20:27 Temp 35.6 Pulse 75 Resp 18 B/P (MAP) 146/103 (117) Pulse Ox 100 O2 Delivery Room Air Capillary Refill : Departure Communication (Admissions) 2819-feeling better at this time, hands are no longer spasms, she states she feels more relaxed. We'll discharge to home. Have her stop the Remeron. I'll give her a short course of clonazepam will she is waiting to follow up with primary care. Symptoms could be related to dystonia or simply from anxiety. Impression Primary Impression: Dystonia Disposition: 01 HOME, SELF-CARE Condition: Improved Departure-Patient Inst. Decision time for Depature: 20:55 Referrals: NO,LOCAL PHYSICIAN (PCP/Family) Primary Care Physician Patient Instructions: Dystonia Add. Discharge Instructions: 1. Stop the Remeron 2. Medication as directed 3. Follow-up with your doctor next week for recheck. Scripts Clonazepam (Clonazepam) 0.5 Mg Tablet 0.5 MG PO DAILY, #5 TAB Prov: BRITTNEY JONES APRN 01/31/20 BRITTNEY JONES APRN Jan 31, 2020 20:15
[2020-01-31 20:41] LABS: BASOPHILS # (AUTO) 0.1 10^3/uL (0.0-0.1); BASOPHILS % (AUTO) 1 % (0-10); EOSINOPHILS # (AUTO) 0.2 10^3/uL (0.0-0.3); EOSINOPHILS % (AUTO) 2 % (0-10); HEMATOCRIT 42 % (35-52); HEMOGLOBIN 13.7 g/dL (11.5-16.0); LYMPHOCYTES % (AUTO) 35 % (12-44); MEAN CORPUSCULAR HEMOGLOBIN 29 pg (25-34); MEAN CORPUSCULAR HGB CONC 33 g/dL (32-36); MEAN CORPUSCULAR VOLUME 88 fL (80-99); MEAN PLATELET VOLUME 9.6 fL (9.0-12.2); MONOCYTES # (AUTO) 0.6 10^3/uL (0.0-1.0); MONOCYTES % (AUTO) 6 % (0-12); NEUTROPHILS # (AUTO) 4.8 10^3/uL (1.8-7.8); NEUTROPHILS % (AUTO) 56 % (42-75); PLATELET COUNT 335 10^3/uL (130-400); WHITE BLOOD COUNT 8.7 10^3/uL (4.3-11.0)
[2020-01-31 20:51] LABS: ALBUMIN 4.1 GM/DL (3.2-4.5); CHLORIDE 103 MMOL/L (98-107); POTASSIUM 4.2 MMOL/L (3.6-5.0); SODIUM 138 MMOL/L (135-145)
[2020-01-31 20:52] LABS: CALCIUM 9.1 MG/DL (8.5-10.1)
[2020-01-31 20:53] LABS: GLUCOSE 90 MG/DL (70-105)
[2020-01-31 20:54] LABS: CARBON DIOXIDE 26 MMOL/L (21-32)
[2020-01-31 20:55] LABS: BILIRUBIN,TOTAL 0.2 MG/DL (0.1-1.0)
[2020-01-31 20:56] LABS: ALKALINE PHOSPHATASE 47 U/L (40-136)
[2020-01-31 20:57] LABS: CREATININE SERUM 0.81 MG/DL (0.60-1.30); GFR ESTIMATED > 60
[2020-01-31 20:58] LABS: BUN/CREATININE RATIO 11
[2020-01-31 21:00] LABS: ALANINE AMINOTRANSFERASE 17 U/L (0-55)
[2020-01-31] MEDS ORDERED: CLON0.5T4 PO (21:03)
[2020-01-31] MEDS ORDERED: IBUPROFEN 800 MG (MOTRIN) TAB PO ONE (21:15)
[2020-01-31 21:28] VITALS: BP 134/93
== END 2020-01-31 21:21 | disposition home or self-care (01) ==
LOC: EDUNIT# 19:58 → ER 20:00
DX: G24.9 Dystonia, unspecified (principal); G89.29 Other chronic pain; M54.9 Dorsalgia, unspecified; Z82.49 Family history of ischemic heart disease and other diseases of the circulatory system; Z82.61 Family history of arthritis; Z83.3 Family history of diabetes mellitus; Z80.8 Family history of malignant neoplasm of other organs or systems; Z87.891 Personal history of nicotine dependence; Z88.2 Allergy status to sulfonamides; Z88.1 Allergy status to other antibiotic agents; Z88.5 Allergy status to narcotic agent; Z88.0 Allergy status to penicillin; Z79.891 Long term (current) use of opiate analgesic
CPT/HCPCS: 36415; 80053; 84703; 85025; 99283

== ENCOUNTER 2020-03-01 13:36 | Emergency (ER) | payer MEDICAID ==
[~2020-03-01] VITALS: Ht 172 cm; Wt 91.0 kg
[~2020-03-01 13:36] MED LIST changes: +CLON0.5T4 PO
--- NOTE | 2020-03-01 14:23 | ED Integumentary General ---
General Stated Complaint: SPIDER BITE Source: patient Exam Limitations: no limitations History of Present Illness Date Seen by Provider: Mar 01, 2020 Time Seen by Provider: 14:21 Initial Comments 34-year-old female presents with concern for spider bites. Patient reports that she saw some spiders in her house and concern that maybe she got bit by one. She complains of some may be pain in the bite on her posterior right shoulder. She also complains of some Pain when she walks or with extension of her foot. No swelling, patient symptoms are very vague. No other systemic complaints. Allergies and Home Medications Allergies Coded Allergies: Penicillins (Verified Allergy, Unknown, RASH, 09/22/17) amoxicillin (Verified Allergy, Unknown, 09/22/17) codeine (Verified Allergy, Unknown, 07/23/18) meperidine (Verified Allergy, Unknown, 12/29/17) sulfamethoxazole (Verified Allergy, Unknown, 07/23/18) trimethoprim (Verified Allergy, Unknown, 07/23/18) Home Medications Cephalexin 250 Mg Capsule, 500 MG PO QID Prescribed by: MALINI WEATHERS on 07/26/18730 Clonazepam 0.5 Mg Tablet, 0.5 MG PO DAILY Prescribed by: BRITTNEY JONES on 01/31/202103 Docusate Sodium 100 Mg Capsule, 100 MG PO BID Prescribed by: MALINI WEATHERS on 07/26/18730 Gabapentin 600 Mg Tablet, 600 MG PO BID, (Reported) Hydrocodone Bit/Acetaminophen 1 Tab Tab, 1 TAB PO Q4H PRN for PAIN-MODERATE Prescribed by: MALINI WEATHERS on 07/26/18730 Ibuprofen 600 Mg Tablet, 600 MG PO Q6H Prescribed by: MALINI WEATHERS on 07/26/18730 Vit W-Ca,Fe,FA(<1 mg) 1 Each Tablet, 1 EACH PO DAILY, (Reported) [Benzocaine/Menthol] 56 ML AEROSOL, 56 ML TP UD PRN for PAIN- SEE INSTRUCTIONS EXTERNAL USE ONLY Prescribed by: MALINI WEATHERS on 07/26/18730 Patient Home Medication List Home Medication List Reviewed: Yes Review of Systems Review of Systems Constitutional: no symptoms reported EENTM: no symptoms reported Respiratory: no symptoms reported Cardiovascular: no symptoms reported Gastrointestinal: No abdominal pain, No constipation, No diarrhea, No vomiting Genitourinary: no symptoms reported Musculoskeletal: see HPI Skin: see HPI Psychiatric/Neurological: No Symptoms Reported Endocrine: No Symptoms Reported Hematologic/Lymphatic: No Symptoms Reported Past Cshwilg-Yrdhuh-Ofodph Hx Past Med/Social Hx: Reviewed Nursing Past Med/Soc Hx Patient Social History Type Used: Cigarettes Former Smoker, Quit: September 12, 2016 2nd Hand Smoke Exposure: Yes Recent Foreign Travel: No Contact w/Someone Who Travel: No Recent Hopitalizations: No Immunizations Up To Date Date of Influenza Vaccine: Mar 28, 2018 Seasonal Allergies Seasonal Allergies: No Past Medical History Surgeries: No Respiratory: Yes Asthma Cardiac: No Neurological: No Reproductive Disorders: No Female Reproductive Disorders: Denies Sexually Transmitted Disease: No HIV/AIDS: No Genitourinary: Yes UTI-Chronic Gastrointestinal: Yes Gall Bladder Disease Musculoskeletal: Yes (ANKYLOSING sPONDYLITIS) Chronic Back Pain Endocrine: Yes Hypothyroidsim HEENT: No Loss of Vision: Denies Hearing Impairment: Denies Cancer: No Psychosocial: Yes Anxiety Integumentary: No Blood Disorders: No Adverse Reaction/Blood Tranf: No Family Medical History AIDS Alcoholism 19 MOTHER Ankylosing spondylitis 19 FATHER GRANDPARENTS (Paternal Grandmother) Arthritis GRANDPARENTS (Maternal Grandparents Paternal Grandparents) Diabetes mellitus GRANDPARENTS (Paternal Grandmother) Fibrocystic disease of breast GRANDPARENTS (Paternal Grandmother) Glioblastoma 19 MOTHER ( 08/10/13 ) Hypercholesterolemia GRANDPARENTS (Paternal Grandmother) Hypertension GRANDPARENTS (Paternal Grandmother) Neoplasm 19 MOTHER ( ) Osteoporosis 19 MOTHER Respiratory disorder GRANDPARENTS (Maternal Grandmother-Emphysema and COPD) Physical Exam Vital Signs Capillary Refill : General Appearance: WD/WN, no apparent distress HEENT: PERRL/EOMI Neck: full range of motion, supple Cardiovascular: regular rate, rhythm Respiratory: lungs clear, normal breath sounds Gastrointestinal: non tender, soft Extremities: normal range of motion, other (tenderness to right posterior calf with resisance to foot extension, consistant with calf strain ) Skin: normal color, warm/dry, other (no evidence of bites ) Departure Impression Primary Impression: Strain of right calf muscle Additional Impression: Condition not found Disposition: 01 HOME, SELF-CARE Condition: Stable Departure-Patient Inst. Referrals: NO,LOCAL PHYSICIAN (PCP/Family) Primary Care Physician Patient Instructions: Lower Extremity Muscle Strain Add. Discharge Instructions: 4% topical lidocaine with menthol as directed on package Tylenol or ibuprofen as needed MOURA,NEIL L DO Mar 01, 2020 14:23
[2020-03-01 14:40] VITALS: BP 0/0
== END 2020-03-01 14:40 | disposition home or self-care (01) ==
LOC: EDUNIT# 13:36 → ER 13:37
DX: S86.911A Strain of unspecified muscle(s) and tendon(s) at lower leg level, right leg, initial encounter (principal); G89.29 Other chronic pain; M54.9 Dorsalgia, unspecified; Z88.0 Allergy status to penicillin; Z88.5 Allergy status to narcotic agent; Z88.1 Allergy status to other antibiotic agents; Z88.2 Allergy status to sulfonamides; Z87.891 Personal history of nicotine dependence; Z80.9 Family history of malignant neoplasm, unspecified; Z82.61 Family history of arthritis; Z83.3 Family history of diabetes mellitus; Z82.49 Family history of ischemic heart disease and other diseases of the circulatory system; Z80.8 Family history of malignant neoplasm of other organs or systems; Z79.891 Long term (current) use of opiate analgesic; W57.XXXA Bitten or stung by nonvenomous insect and other nonvenomous arthropods, initial encounter
CPT/HCPCS: 99282

== ENCOUNTER → 2020-05-15 | Outpatient (CLI) | payer MEDICAID ==
--- NOTE | 2020-05-15 09:39 | Diagnostic Imaging Report ---
EXAMINATION: US Abdomen limited. TECHNIQUE: Multiple real-time grayscale images were obtained over the right upper quadrant in various projections. REASON FOR EXAM: Right upper quadrant pain. Nausea and vomiting. COMPARISON: None. FINDINGS: The liver is normal in size and shape. The liver echogenicity is within normal limits. There are no focal lesions. No intrahepatic biliary dilatation is present. The common bile duct is not dilated and measures 4 mm. The main portal vein is hepatopedal. No ascites is seen in the upper abdomen. Multiple gallstones are visualized in the gallbladder lumen. There is no evidence of gallbladder wall thickening or pericholecystic fluid. Sonographic Lemons's sign is negative. The visualized portion of the head of the pancreas are within normal limits. The body and tail of the pancreas are not well visualized due to overlying bowel gas. The visualized portions of the IVC and aorta appear normal. The right kidney measures approximately 11.3 cm in length and has a normal appearance. IMPRESSION: 1. Cholelithiasis without sonographic evidence of acute cholecystitis. Dictated by: Dictated on workstation # [id number]
== END ==
LOC: RAD 08:22
PROVIDERS: ATTEND Surgery
DX: K80.20 Calculus of gallbladder without cholecystitis without obstruction (principal)
CPT/HCPCS: 76705

== ENCOUNTER 2020-05-26 14:17 | Emergency (ER) | payer MEDICAID ==
[~2020-05-26] VITALS: Ht 172.7 cm; Wt 100.0 kg
--- NOTE | 2020-05-26 15:01 | ED Cough/URI ---
General Chief Complaint: Respiratory Problems Stated Complaint: SOB Nursing Triage Note: Pt c/o dry cough, SOB and lungs burning for a couple days. Pt is unaware of any COVID exposure. Pt also c/o mild diarrhea, and lung and back pain. Sepsis Screen: No Definite Risk Source: patient Exam Limitations: no limitations History of Present Illness Date Seen by Provider: May 26, 2020 Time Seen by Provider: 14:45 Initial Comments To ER by private vehicle with a few day history of dry cough shortness of breath and burning in her lungs. Timing/Duration: getting worse Severity/Quality: moderate Prior Episodes/Possible Cause: no prior episodes Associated Symptoms: cough Allergies and Home Medications Allergies Coded Allergies: Penicillins (Verified Allergy, Unknown, RASH, 09/22/17) amoxicillin (Verified Allergy, Unknown, 09/22/17) codeine (Verified Allergy, Unknown, 07/23/18) meperidine (Verified Allergy, Unknown, 12/29/17) sulfamethoxazole (Verified Allergy, Unknown, 07/23/18) trimethoprim (Verified Allergy, Unknown, 07/23/18) Home Medications Azithromycin 250 Mg Tablet, 250 MG PO UD TAKE 2 TABLETS ON DAY ONE THEN TAKE 1 TABLET DAILY FOR FOUR MORE DAYS Prescribed by: BRITTNEY JONES on 05/26/20 1614 Cephalexin 250 Mg Capsule, 500 MG PO QID Prescribed by: MALINI WEATHERS on 07/26/18730 Clonazepam 0.5 Mg Tablet, 0.5 MG PO DAILY Prescribed by: BRITTNEY JONES on 01/31/20 2104 Docusate Sodium 100 Mg Capsule, 100 MG PO BID Prescribed by: MALINI WEATHERS on 07/26/18730 Gabapentin 600 Mg Tablet, 600 MG PO BID, (Reported) Hydrocodone Bit/Acetaminophen 1 Tab Tab, 1 TAB PO Q4H PRN for PAIN-MODERATE Prescribed by: MALINI WEATHERS on 07/26/18730 Ibuprofen 600 Mg Tablet, 600 MG PO Q6H Prescribed by: MALINI WEATHERS on 07/26/18730 Vit W-Ca,Fe,FA(<1 mg) 1 Each Tablet, 1 EACH PO DAILY, (Reported) [Benzocaine/Menthol] 56 ML AEROSOL, 56 ML TP UD PRN for PAIN- SEE INSTRUCTIONS EXTERNAL USE ONLY Prescribed by: MALINI WEATHERS on 07/26/18730 Patient Home Medication List Home Medication List Reviewed: Yes Review of Systems Review of Systems Constitutional: see HPI; No chills, No fever EENTM: see HPI Respiratory: see HPI, cough Cardiovascular: no symptoms reported Genitourinary: no symptoms reported Musculoskeletal: no symptoms reported Skin: no symptoms reported Psychiatric/Neurological: No Symptoms Reported Hematologic/Lymphatic: No Symptoms Reported Past Shndasr-Yrlotf-Zimvmp Hx Patient Social History Alcohol Use: Denies Use Type Used: Cigarettes, Electronic/Vapor Former Smoker, Quit: September 12, 2016 2nd Hand Smoke Exposure: Yes Recent Infectious Disease Expo: No Recent Hopitalizations: No Immunizations Up To Date Date of Influenza Vaccine: Mar 28, 2018 Seasonal Allergies Seasonal Allergies: No Past Medical History Surgeries: No Respiratory: Yes Asthma Cardiac: No Neurological: No Last Menstrual Period: Apr 25, 2020 Reproductive Disorders: No Female Reproductive Disorders: Denies Sexually Transmitted Disease: No HIV/AIDS: No Genitourinary: Yes UTI-Chronic Gastrointestinal: Yes Gall Bladder Disease Musculoskeletal: Yes (ANKYLOSING sPONDYLITIS) Chronic Back Pain Endocrine: Yes Hypothyroidsim HEENT: No Loss of Vision: Denies Hearing Impairment: Denies Cancer: No ("possible cervical cancer") Psychosocial: Yes Anxiety Integumentary: No Blood Disorders: No Adverse Reaction/Blood Tranf: No Family Medical History AIDS Alcoholism 19 MOTHER Ankylosing spondylitis 19 FATHER GRANDPARENTS (Paternal Grandmother) Arthritis GRANDPARENTS (Maternal Grandparents Paternal Grandparents) Diabetes mellitus GRANDPARENTS (Paternal Grandmother) Fibrocystic disease of breast GRANDPARENTS (Paternal Grandmother) Glioblastoma 19 MOTHER ( 08/10/13 ) Hypercholesterolemia GRANDPARENTS (Paternal Grandmother) Hypertension GRANDPARENTS (Paternal Grandmother) Neoplasm 19 MOTHER ( ) Osteoporosis 19 MOTHER Respiratory disorder GRANDPARENTS (Maternal Grandmother-Emphysema and COPD) Physical Exam Vital Signs - First Documented 05/26/20 14:24 Temp 36.9 Pulse 62 Resp 20 B/P (MAP) 150/84 (106) Pulse Ox 100 O2 Delivery Room Air Capillary Refill : Less Than 3 Seconds Height: 5'8.00" Weight: 211lbs. 8.0oz. 95.092158rj; 33.00 BMI Method:Stated General Appearance: WD/WN, no apparent distress, other (Oxygen saturation 100% room air heart rate 65, no respiratory distress) Eyes: Bilateral Eye Normal Inspection, Bilateral Eye PERRL, Bilateral Eye EOMI HEENT: PERRL/EOMI, normal ENT inspection, TMs normal Respiratory: normal breath sounds, no respiratory distress, no accessory muscle use Cardiovascular: regular rate, rhythm, no murmur Gastrointestinal: normal bowel sounds, non tender, soft Neurologic/Psychiatric: alert, normal mood/affect, oriented x 3 Skin: normal color, warm/dry Progress/Results/Core Measures Suspected Sepsis Recent Fever Within 48 Hours: No Infection Criteria Present: None New/Unexplained Altered Menta: No Sepsis Screen: No Definite Risk SIRS Temperature: Pulse: 62 Respiratory Rate: 20 Laboratory Tests 05/26/20 15:45: White Blood Count 7.7 Blood Pressure 150 /84 Mean: 106 Laboratory Tests 05/26/20 15:45: Creatinine 0.75, Platelet Count 256 Results/Orders Lab Results Laboratory Tests Test 05/26/20 14:48 05/26/20 14:50 05/26/20 15:45 Range/Units Coronavirus 2019 ([facility]) Negative Negative White Blood Count 7.7 4.3-11.0 10^3/uL Red Blood Count 4.66 3.80-5.11 10^6/uL Hemoglobin 13.6 11.5-16.0 g/dL Hematocrit 41 35-52 % Mean Corpuscular Volume 88 80-99 fL Mean Corpuscular Hemoglobin 29 25-34 pg Mean Corpuscular Hemoglobin Concent 33 32-36 g/dL Red Cell Distribution Width 12.9 10.0-14.5 % Platelet Count 256 130-400 10^3/uL Mean Platelet Volume 10.7 9.0-12.2 fL Immature Granulocyte % (Auto) 0 % Neutrophils (%) (Auto) 69 42-75 % Lymphocytes (%) (Auto) 25 12-44 % Monocytes (%) (Auto) 5 0-12 % Eosinophils (%) (Auto) 1 0-10 % Basophils (%) (Auto) 1 0-10 % Neutrophils # (Auto) 5.3 1.8-7.8 10^3/uL Lymphocytes # (Auto) 1.9 1.0-4.0 10^3/uL Monocytes # (Auto) 0.4 0.0-1.0 10^3/uL Eosinophils # (Auto) 0.1 0.0-0.3 10^3/uL Basophils # (Auto) 0.1 0.0-0.1 10^3/uL Immature Granulocyte # (Auto) 0.0 0.0-0.1 10^3/uL D-Dimer 0.35 0.00-0.49 UG/ML Sodium Level 139 135-145 MMOL/L Potassium Level 4.0 3.6-5.0 MMOL/L Chloride Level 105 98-107 MMOL/L Carbon Dioxide Level 29 21-32 MMOL/L Anion Gap 5 5-14 MMOL/L Blood Urea Nitrogen 8 7-18 MG/DL Creatinine 0.75 0.60-1.30 MG/DL Estimat Glomerular Filtration Rate > 60 BUN/Creatinine Ratio 11 Glucose Level 95 70-105 MG/DL Calcium Level 9.1 8.5-10.1 MG/DL C-Reactive Protein High Sensitivity 0.10 0.00-0.50 MG/DL Serum Test, Qualitative NEGATIVE NEGATIVE My Orders Orders - BRITTNEY JONES APRN Hcg,Qualitative Serum (05/26/20 14:46) Cbc With Automated Diff (05/26/20 14:46) Hs C Reactive Protein (05/26/20 14:46) Fibrin Degradation Products (05/26/20 14:46) Chest 1 View, Ap/Pa Only (05/26/20 14:46) Coronavirus Sars-Cov-2 So 2018 (05/26/20 14:46) Covid 19 Inhouse Test (05/26/20 14:46) Basic Metabolic Panel (05/26/20 16:13) Vital Signs/I&O 05/26/20 14:24 Temp 36.9 Pulse 62 Resp 20 B/P (MAP) 150/84 (106) Pulse Ox 100 O2 Delivery Room Air Capillary Refill : Less Than 3 Seconds Blood Pressure Mean: 106 Departure Impression Primary Impression: URI Disposition: 01 HOME, SELF-CARE Condition: Stable Departure-Patient Inst. Decision time for Depature: 16:13 Referrals: NO,LOCAL PHYSICIAN (PCP/Family) Primary Care Physician Patient Instructions: Upper Respiratory Infection ED Add. Discharge Instructions: . Tylenol and ibuprofen for pain. Return to ER for any concerns. Follow-up with your doctor next week. All discharge instructions reviewed with patient and/or family. Voiced unders tanding. Scripts Tramadol HCl (Ultram) 50 Mg Tablet 50 MG PO Q6H PRN for PAIN-MODERATE (5-7), #5 TAB Prov: BRITTNEY JONES PACKAGING SUPERVISOR 05/26/20 Azithromycin (Azithromycin) 250 Mg Tablet 250 MG PO UD, #6 TAB TAKE 2 TABLETS ON DAY ONE THEN TAKE 1 TABLET DAILY FOR FOUR MORE DAYS Prov: BRITTNEY JONES APRN 05/26/20 BRITTNEY JONES APRN May 26, 2020 15:00
--- NOTE | 2020-05-26 15:38 | Diagnostic Imaging Report ---
CHEST 1 VIEW, AP/PA ONLY Indication: Cough Comparison: 04/16/2018 Findings: No focal airspace disease in the visualized lungs. Please note that the posterior lower lobes are poorly evaluated by portable radiography. No pleural effusion or pneumothorax. Normal cardiomediastinal silhouette. Impression: 1. No acute cardiopulmonary process by portable radiography. Dictated by: Dictated on workstation # [id number]
[2020-05-26 15:55] LABS: BASOPHILS # (AUTO) 0.1 10^3/uL (0.0-0.1); BASOPHILS % (AUTO) 1 % (0-10); EOSINOPHILS # (AUTO) 0.1 10^3/uL (0.0-0.3); EOSINOPHILS % (AUTO) 1 % (0-10); HEMATOCRIT 41 % (35-52); HEMOGLOBIN 13.6 g/dL (11.5-16.0); LYMPHOCYTES # (AUTO) 1.9 10^3/uL (1.0-4.0); LYMPHOCYTES % (AUTO) 25 % (12-44); MEAN CORPUSCULAR HEMOGLOBIN 29 pg (25-34); MEAN CORPUSCULAR HGB CONC 33 g/dL (32-36); MEAN CORPUSCULAR VOLUME 88 fL (80-99); MEAN PLATELET VOLUME 10.7 fL (9.0-12.2); MONOCYTES # (AUTO) 0.4 10^3/uL (0.0-1.0); MONOCYTES % (AUTO) 5 % (0-12); NEUTROPHILS # (AUTO) 5.3 10^3/uL (1.8-7.8); NEUTROPHILS % (AUTO) 69 % (42-75); PLATELET COUNT 256 10^3/uL (130-400); WHITE BLOOD COUNT 7.7 10^3/uL (4.3-11.0)
[2020-05-26] MEDS ORDERED: AZIT250T12 PO (16:14)
[2020-05-26 16:23] LABS: CHLORIDE 105 MMOL/L (98-107); SODIUM 139 MMOL/L (135-145)
[2020-05-26 16:24] LABS: CALCIUM 9.1 MG/DL (8.5-10.1); GLUCOSE 95 MG/DL (70-105)
[2020-05-26 16:26] LABS: CARBON DIOXIDE 29 MMOL/L (21-32)
[2020-05-26 16:28] LABS: CREATININE SERUM 0.75 MG/DL (0.60-1.30); GFR ESTIMATED > 60
[2020-05-26 16:29] LABS: BUN/CREATININE RATIO 11
[2020-05-26] MEDS ORDERED: TRAM-42 PO (16:50)
[2020-05-26 16:55] VITALS: BP 147/87
[2020-05-28] MEDS ORDERED: GABA800T10 PO (15:08)
[2020-05-28] MEDS ORDERED: VILA20TA PO (15:08)
[2020-05-28] MEDS ORDERED: PALI6TAB6 PO (15:08)
[2020-05-28] MEDS ORDERED: TRZ50T PO (15:08)
[2020-05-28] MEDS ORDERED: LEVO88TA54 PO (15:08)
== END 2020-05-26 16:55 | disposition home or self-care (01) ==
LOC: EDUNIT# 14:17 → ER 14:20
DX: J06.9 Acute upper respiratory infection, unspecified (principal); G89.29 Other chronic pain; M54.9 Dorsalgia, unspecified; Z20.822 Contact with and (suspected) exposure to COVID-19; Z87.891 Personal history of nicotine dependence; Z88.0 Allergy status to penicillin; Z88.2 Allergy status to sulfonamides; Z88.1 Allergy status to other antibiotic agents; Z88.8 Allergy status to other drugs, medicaments and biological substances; Z83.3 Family history of diabetes mellitus; Z82.61 Family history of arthritis; Z80.8 Family history of malignant neoplasm of other organs or systems; Z82.49 Family history of ischemic heart disease and other diseases of the circulatory system; Z79.891 Long term (current) use of opiate analgesic
CPT/HCPCS: 36415; 71045; 80048; 84703; 85025; 85379; 86141; 87635

== ENCOUNTER 2020-06-02 05:33 | Outpatient (RCR) | payer MEDICAID ==
[~2020-06-02] VITALS: Ht 172.7 cm; Wt 101.4 kg
[~2020-06-02 05:33] MED LIST changes: +AZIT250T12 PO; +GABA800T10 PO; +LEVO88TA54 PO; +PALI6TAB6 PO; +TRZ50T PO; +VILA20TA PO
== END 2020-06-03 12:40 | disposition home or self-care (01) ==
LOC: PREOP 05:33
PROVIDERS: ATTEND Surgery
DX: Z01.812 Encounter for preprocedural laboratory examination (principal); Z53.8 Procedure and treatment not carried out for other reasons

== ENCOUNTER 2020-06-05 05:38 | Outpatient (RCR) | payer MEDICAID ==
[~2020-06-05] VITALS: Ht 172.7 cm; Wt 96.8 kg
== END 2020-06-05 13:36 | disposition home or self-care (01) ==
LOC: PREOP 05:38
PROVIDERS: ATTEND Obstetrics & Gynecology
DX: Z53.8 Procedure and treatment not carried out for other reasons (principal)

== ENCOUNTER 2020-07-05 14:01 | Emergency (ER) | payer MEDICAID ==
[~2020-07-05] VITALS: Ht 172.7 cm; Wt 90.7 kg
[2020-07-05 14:23] VITALS: BP 119/75
[2020-07-05] MEDS ORDERED: CYCL5TAB PO (14:55)
[2020-07-05] MEDS ORDERED: TRAM-42 PO (14:55)
--- NOTE | 2020-07-05 14:57 | ED Back Pain ---
General Chief Complaint: Back Problems Stated Complaint: LOWER BACK PAIN Nursing Triage Note: PT AMB TO TRIAGE WITH COMPLAINT OF MID TO LOWER BACK PAIN THAT STARTED AFTER LIFTING A BOX THIS MORNING. STATES TOOK 800 IBUPROFEN. Nursing Sepsis Screen: No Definite Risk Source of Information: Patient Exam Limitations: No Limitations History of Present Illness Date Seen by Provider: Jul 05, 2020 Time Seen by Provider: 14:51 Initial Comments To ER with left thoracic back pain and some left lower back pain that radiates down the left leg. This began this morning while she was lifting some furniture. She did not fall. No loss of bowel or bladder control. She took some Flexeril at home without relief. Location: Lumbar Spine, Paraspinous Muscles, T-Spine Timing/Duration: 4-6 Hours Severity: Mild Method of Injury: Unknown Associated Symptoms: denies symptoms, lower back pain Allergies and Home Medications Allergies Coded Allergies: Penicillins (Verified Allergy, Unknown, RASH, 09/22/17) amoxicillin (Verified Allergy, Unknown, 09/22/17) codeine (Verified Allergy, Unknown, 07/23/18) meperidine (Verified Allergy, Unknown, 12/29/17) sulfamethoxazole (Verified Allergy, Unknown, 07/23/18) trimethoprim (Verified Allergy, Unknown, 07/23/18) Home Medications Gabapentin 800 Mg Tablet, 800 MG PO TID, (Reported) Levothyroxine Sodium 88 Mcg Tablet, 88 MCG PO DAILY, (Reported) Paliperidone 6 Mg Tab.er.24, 6 MG PO HS, (Reported) Trazodone HCl 50 Mg Tablet, 50 MG PO HS, (Reported) Vilazodone Hydrochloride 20 Mg Tablet, 20 MG PO DAILY, (Reported) Patient Home Medication List Home Medication List Reviewed: Yes Review of Systems Constitutional: see HPI EENTM: see HPI Respiratory: no symptoms reported Cardiovascular: no symptoms reported Genitourinary: no symptoms reported Musculoskeletal: see HPI, back pain Skin: no symptoms reported Psychiatric/Neurological: No Symptoms Reported Past Jflbfiy-Vlyxzk-Gouqqu Hx Patient Social History Alcohol Use: Denies Use Smoking Status: Current Everyday Smoker Type Used: Electronic/Vapor Former Smoker, Quit: September 12, 2016 2nd Hand Smoke Exposure: Yes Recent Infectious Disease Expo: No Recent Hopitalizations: No Immunizations Up To Date Tetanus Booster (TDap): Unknown Date of Influenza Vaccine: Mar 28, 2020 Seasonal Allergies Seasonal Allergies: No Past Medical History Surgeries: No Respiratory: Yes Asthma Cardiac: No Neurological: No Reproductive Disorders: No Female Reproductive Disorders: Denies Sexually Transmitted Disease: No HIV/AIDS: No Genitourinary: Yes UTI-Chronic Gastrointestinal: Yes Gall Bladder Disease Musculoskeletal: Yes (ANKYLOSING sPONDYLITIS) Chronic Back Pain Endocrine: Yes Hypothyroidsim HEENT: No Loss of Vision: Denies Hearing Impairment: Denies Cancer: Yes ("possible cervical cancer") Cervical Psychosocial: Yes Anxiety, Schizophrenia Integumentary: No Blood Disorders: No Adverse Reaction/Blood Tranf: No Family Medical History AIDS Alcoholism 19 MOTHER Ankylosing spondylitis 19 FATHER GRANDPARENTS (Paternal Grandmother) Arthritis GRANDPARENTS (Maternal Grandparents Paternal Grandparents) Diabetes mellitus GRANDPARENTS (Paternal Grandmother) Fibrocystic disease of breast GRANDPARENTS (Paternal Grandmother) Glioblastoma 19 MOTHER ( 08/10/13 ) Hypercholesterolemia GRANDPARENTS (Paternal Grandmother) Hypertension GRANDPARENTS (Paternal Grandmother) Neoplasm 19 MOTHER ( ) Osteoporosis 19 MOTHER Respiratory disorder GRANDPARENTS (Maternal Grandmother-Emphysema and COPD) Physical Exam Vital Signs Vital Signs - First Documented 07/05/20 14:23 Pulse 74 Resp 16 B/P (MAP) 119/75 (90) Pulse Ox 100 O2 Delivery Room Air Capillary Refill : Less Than 3 Seconds Height, Weight, BMI Height: 5'8.00" Weight: 211lbs. 8.0oz. 95.057848wb; 30.00 BMI Method:Stated General Appearance: No Apparent Distress, WD/WN Neck: Full Range of Motion, Normal Inspection Respiratory: Lungs Clear, Normal Breath Sounds, No Accessory Muscle Use, No Respiratory Distress Gastrointestinal: Normal Bowel Sounds, Non Tender, Soft Extremity: Normal Capillary Refill, Normal Inspection Neurologic/Psychiatric: Alert, Oriented x3 Skin: Normal Color, Warm/Dry Progress/Results/Core Measures Results/Orders Vital Signs/I&O 07/05/20 14:23 Pulse 74 Resp 16 B/P (MAP) 119/75 (90) Pulse Ox 100 O2 Delivery Room Air Blood Pressure Mean: 90 Departure Impression Primary Impression: Strain of thoracic region Additional Impression: Lumbar radiculopathy Disposition: 01 HOME, SELF-CARE Condition: Stable Departure-Patient Inst. Decision time for Depature: 14:53 Referrals: NO,LOCAL PHYSICIAN (PCP/Family) Primary Care Physician Patient Instructions: Muscle Strain ED Add. Discharge Instructions: Medicine as directed. Return to ER for any concerns. See your doctor next week. All discharge instructions reviewed with patient and/or family. Voiced understanding. Scripts Tramadol HCl (Ultram) 50 Mg Tablet 50 MG PO Q6H PRN for PAIN-MODERATE (5-7), #10 TAB Prov: BRITTNEY JONES APRN 07/05/20 Cyclobenzaprine HCl (Cyclobenzaprine HCl) 5 Mg Tablet 5 MG PO TID, #14 TAB Prov: BRITTNEY JONES HARDWARE TECHNICIAN 07/05/20 BRITTNEY JONES APRN Jul 05, 2020 14:56
[2020-07-05] MEDS ORDERED: KETOROLAC 60 MG/2 ML VIAL IM ONE (15:00)
== END 2020-07-05 15:33 | disposition home or self-care (01) ==
LOC: EDUNIT# 14:01 → ER 14:02
DX: S29.012A Strain of muscle and tendon of back wall of thorax, initial encounter (principal); M54.16 Radiculopathy, lumbar region; F41.9 Anxiety disorder, unspecified; F20.9 Schizophrenia, unspecified; E03.9 Hypothyroidism, unspecified; F17.290 Nicotine dependence, other tobacco product, uncomplicated; Z88.0 Allergy status to penicillin; Z88.1 Allergy status to other antibiotic agents; Z88.5 Allergy status to narcotic agent; Z88.2 Allergy status to sulfonamides; Z85.41 Personal history of malignant neoplasm of cervix uteri; Z82.49 Family history of ischemic heart disease and other diseases of the circulatory system; Z83.3 Family history of diabetes mellitus; Z82.61 Family history of arthritis; Z80.8 Family history of malignant neoplasm of other organs or systems; Z79.890 Hormone replacement therapy; X50.0XXA Overexertion from strenuous movement or load, initial encounter
CPT/HCPCS: 99284

== ENCOUNTER 2020-07-28 17:11 | Emergency (ER) | payer MEDICAID ==
[~2020-07-28] VITALS: Ht 172 cm; Wt 81.6 kg
[2020-07-28 17:18] VITALS: BP 129/66
--- NOTE | 2020-07-28 18:14 | Diagnostic Imaging Report ---
CLINICAL INDICATION: Patient with elbow pain after hitting wall. Patient's balance has been off due to ear infection. EXAM: X-ray of the left elbow, 3 views. COMPARISON: None. FINDINGS: There is no acute fracture or dislocation. There is no significant bone or joint abnormality. There is no elbow effusion. IMPRESSION: Unremarkable x-ray of the left elbow. Dictated by: Dictated on workstation # [id number]
--- NOTE | 2020-07-28 18:25 | ED Upper Extremity ---
General Chief Complaint: Upper Extremity Stated Complaint: L ARM PAIN Nursing Triage Note: Pt c/o L arm pain radiating down to ribs. Pt reports hitting her arm on wall due to "walking funny" last couple days. Pt reports recent ear infection. Nursing Sepsis Screen: No Definite Risk History of Present Illness Date Seen by Provider: Jul 28, 2020 Time Seen by Provider: 17:20 Initial Comments 35-year-old female presents for left elbow pain that is radiating into her shoulder and upper back. She reports falling yesterday and hitting the left elbow on a wall. She has been seen here previously for thoracic back pain. She does report trying some Tylenol and ibuprofen yesterday with no improvement in her symptoms. She denies any head injury or loss of consciousness at the time of the fall. Onset: yesterday Pain/Injury Location: left elbow Method of Injury: fell Allergies and Home Medications Allergies Coded Allergies: Penicillins (Verified Allergy, Unknown, RASH, 09/22/17) amoxicillin (Verified Allergy, Unknown, 09/22/17) codeine (Verified Allergy, Unknown, 07/23/18) meperidine (Verified Allergy, Unknown, 12/29/17) sulfamethoxazole (Verified Allergy, Unknown, 07/23/18) trimethoprim (Verified Allergy, Unknown, 07/23/18) Home Medications Cyclobenzaprine HCl 5 Mg Tablet, 5 MG PO TID Prescribed by: BRITTNEY JONES on 07/05/20 1455 Gabapentin 800 Mg Tablet, 800 MG PO TID, (Reported) Levothyroxine Sodium 88 Mcg Tablet, 88 MCG PO DAILY, (Reported) Paliperidone 6 Mg Tab.er.24, 6 MG PO HS, (Reported) Tramadol HCl 50 Mg Tablet, 50 MG PO Q6H PRN for PAIN-MODERATE (5-7) Prescribed by: BRITTNEY JONES on 07/05/20 1456 Trazodone HCl 50 Mg Tablet, 50 MG PO HS, (Reported) Vilazodone Hydrochloride 20 Mg Tablet, 20 MG PO DAILY, (Reported) Patient Home Medication List Home Medication List Reviewed: Yes Review of Systems Constitutional: no symptoms reported, see HPI Musculoskeletal: see HPI, joint pain (Left elbow) All Other Systems Reviewed Negative Unless Noted: Yes Past Hdvybnf-Xauatw-Sqidaz Hx Past Med/Social Hx: Reviewed Nursing Past Med/Soc Hx Patient Social History Alcohol Use: Denies Use Type Used: Electronic/Vapor Former Smoker, Quit: September 12, 2016 2nd Hand Smoke Exposure: Yes Recent Infectious Disease Expo: No Recent Hopitalizations: No Immunizations Up To Date Tetanus Booster (TDap): Unknown Date of Influenza Vaccine: Mar 28, 2020 Seasonal Allergies Seasonal Allergies: No Past Medical History Surgeries: No Respiratory: Yes Asthma Cardiac: No Neurological: No Reproductive Disorders: No Female Reproductive Disorders: Denies Sexually Transmitted Disease: No HIV/AIDS: No Genitourinary: Yes UTI-Chronic Gastrointestinal: Yes Gall Bladder Disease Musculoskeletal: Yes (ANKYLOSING sPONDYLITIS) Chronic Back Pain Endocrine: Yes Hypothyroidsim HEENT: No Loss of Vision: Denies Hearing Impairment: Denies Cancer: Yes ("possible cervical cancer") Cervical Psychosocial: Yes Anxiety, Schizophrenia Integumentary: No Blood Disorders: No Adverse Reaction/Blood Tranf: No Family Medical History AIDS Alcoholism 19 MOTHER Ankylosing spondylitis 19 FATHER GRANDPARENTS (Paternal Grandmother) Arthritis GRANDPARENTS (Maternal Grandparents Paternal Grandparents) Diabetes mellitus GRANDPARENTS (Paternal Grandmother) Fibrocystic disease of breast GRANDPARENTS (Paternal Grandmother) Glioblastoma 19 MOTHER ( 08/10/13 ) Hypercholesterolemia GRANDPARENTS (Paternal Grandmother) Hypertension GRANDPARENTS (Paternal Grandmother) Neoplasm 19 MOTHER ( ) Osteoporosis 19 MOTHER Respiratory disorder GRANDPARENTS (Maternal Grandmother-Emphysema and COPD) Physical Exam Vital Signs Vital Signs - First Documented 07/28/20 17:18 Temp 36.6 Pulse 71 Resp 20 B/P (MAP) 129/66 (87) Pulse Ox 100 O2 Delivery Room Air Capillary Refill : Less Than 3 Seconds Height, Weight, BMI Height: 5'8.00" Weight: 211lbs. 8.0oz. 95.063118ct; 27.00 BMI Method:Stated General Appearance: WD/WN, no apparent distress Elbow/Forearm: normal inspection, normal ROM, Left, soft tissue tenderness (Over the olecranon and laterally) Hand: normal inspection, non-tender, no evidence of injury, normal ROM, Left Neurologic/Tendon: normal sensation, normal motor functions, normal tendon functions Neurologic/Psychiatric: no motor/sensory deficits, alert, normal mood/affect, oriented x 3 Skin: normal color, warm/dry Progress/Results/Core Measures Results/Orders My Orders Orders - ERMA HESTER Elbow, Left, 3 Views (07/28/20 17:55) Vital Signs/I&O 07/28/20 17:18 Temp 36.6 Pulse 71 Resp 20 B/P (MAP) 129/66 (87) Pulse Ox 100 O2 Delivery Room Air Blood Pressure Mean: 87 Diagnostic Imaging Diagonstic Imaging: Xray Plain Films/CT/US/NM/MRI: elbow Comments NAME: GIACOMO TRUJILLO [facility] REC#: [id number] PT STATUS: REG ER : 1985 PHYSICIAN: ERMA HESTER ADMIT DATE: 07/28/20/ER Draft Date of Exam:07/28/20 ELBOW, LEFT, 3 VIEWS CLINICAL INDICATION: Patient with elbow pain after hitting wall. Patient's balance has been off due to ear infection. EXAM: X-ray of the left elbow, 3 views. COMPARISON: None. FINDINGS: There is no acute fracture or dislocation. There is no significant bone or joint abnormality. There is no elbow effusion. IMPRESSION: Unremarkable x-ray of the left elbow. Dictated on workstation # [id number] Dict: 07/28/20 181 Trans: 07/28/20 1814 [facility] [id number] Interpreted by: RENAN NDIAYE MD Electronically signed by: Reviewed: Reviewed by Me Departure Impression Primary Impression: Contusion of left elbow Qualified Codes: S50.02XA - Contusion of left elbow, initial encounter Disposition: HOME, SELF-CARE Condition: Improved Departure-Patient Inst. Decision time for Depature: 18:15 Referrals: NO,LOCAL PHYSICIAN (PCP/Family) Primary Care Physician Patient Instructions: Contusion (DC) Add. Discharge Instructions: Alternate heat and ice to left elbow for 20 minutes. Use Flaquito wrap as needed. Follow-up with your primary care provider if symptoms are not improving or worsen. Alternate between Tylenol 650 mg and ibuprofen 600 mg every 4 hours for pain. Return to the emergency department for new, urgent healthcare needs. All discharge instructions reviewed with patient and/or family. Voiced underst anding. MIRERMA TORRES Jul 28, 2020 18:24
== END 2020-07-28 18:28 | disposition home or self-care (01) ==
LOC: EDUNIT# 17:11 → ER 17:12
DX: S50.02XA Contusion of left elbow, initial encounter (principal); E03.9 Hypothyroidism, unspecified; F41.9 Anxiety disorder, unspecified; F20.9 Schizophrenia, unspecified; J45.909 Unspecified asthma, uncomplicated; Z77.22 Contact with and (suspected) exposure to environmental tobacco smoke (acute) (chronic); Z85.41 Personal history of malignant neoplasm of cervix uteri; Z79.890 Hormone replacement therapy; Z88.0 Allergy status to penicillin; Z88.1 Allergy status to other antibiotic agents; Z88.2 Allergy status to sulfonamides; Z88.5 Allergy status to narcotic agent; Z88.8 Allergy status to other drugs, medicaments and biological substances; W18.30XA Fall on same level, unspecified, initial encounter; W22.01XA Walked into wall, initial encounter
CPT/HCPCS: 73080

== ENCOUNTER 2020-08-01 09:21 | Emergency (ER) | payer MEDICAID ==
[~2020-08-01] VITALS: Ht 165 cm; Wt 90.0 kg
[2020-08-01] MEDS ORDERED: LORazepam INJ 2 MG/ML (ATIVAN) VIAL IVP ONE (10:00)
[2020-08-01] MEDS ORDERED: LACTATED RINGERS 1,000 ML IV ONE (10:00)
[2020-08-01] MEDS ORDERED: LORazepam 0.5 MG (ATIVAN) TABLET PO STA (10:21)
--- NOTE | 2020-08-01 10:53 | ED Psychosocial ---
General Chief Complaint: Substance Abuse Stated Complaint: AMS Nursing Triage Note: PT FOUND IN THE PARKING LOT BY BYSTANDERS YELLING AND ACTING ERRATICALLY. PT BROUGHT IN ET YELLING AND STAES SHE CAN NOT CALM DOWN. STATES SHE SHE SHOT UP METH YESTERDAY. PT TRYING TO GIVE ME MONEY THAT IS IN HER BRA. X3 $100 BILLS GIVEN BACK TO PT AND ASKED HER TO KEEP IT. THIS WAS WITNESSED BY TATO SOL. Source: patient Exam Limitations: no limitations History of Present Illness Date Seen by Provider: Aug 01, 2020 Time Seen by Provider: 09:25 Initial Comments This patient was found in the hospital parking lot by runners who were passing by. Patient was yelling and acting erratically. She was initially repeating "I do not feel well". She had pressured loud speech. She was guided to the ER and encouraged to check in. She admits to recent methamphetamine use. She is quite paranoid and initially absolutely refused to remain in her exam room. She never did allow this provider to examine her despite much coaxing. She refused treatment with Ativan. She ultimately left AGAINST MEDICAL ADVICE and contacted family to pick her up. Allergies and Home Medications Allergies Coded Allergies: Penicillins (Verified Allergy, Unknown, RASH, 09/22/17) amoxicillin (Verified Allergy, Unknown, 09/22/17) codeine (Verified Allergy, Unknown, 07/23/18) meperidine (Verified Allergy, Unknown, 12/29/17) sulfamethoxazole (Verified Allergy, Unknown, 07/23/18) trimethoprim (Verified Allergy, Unknown, 07/23/18) Home Medications Cyclobenzaprine HCl 5 Mg Tablet, 5 MG PO TID Prescribed by: BRITTNEY JONES on 07/05/20 1455 Gabapentin 800 Mg Tablet, 800 MG PO TID, (Reported) Levothyroxine Sodium 88 Mcg Tablet, 88 MCG PO DAILY, (Reported) Paliperidone 6 Mg Tab.er.24, 6 MG PO HS, (Reported) Tramadol HCl 50 Mg Tablet, 50 MG PO Q6H PRN for PAIN-MODERATE (5-7) Prescribed by: BRITTNEY JONES on 07/05/20 1456 Trazodone HCl 50 Mg Tablet, 50 MG PO HS, (Reported) Vilazodone Hydrochloride 20 Mg Tablet, 20 MG PO DAILY, (Reported) Patient Home Medication List Home Medication List Reviewed: Yes Review of Systems Constitutional: diaphoresis EENTM: no symptoms reported Respiratory: no symptoms reported, other (Appeared to be hyperventilating) Cardiovascular: no symptoms reported Past Icnniwu-Qtvrjv-Xgnhlw Hx Past Med/Social Hx: Reviewed Nursing Past Med/Soc Hx Patient Social History Alcohol Use: Denies Use Type Used: Electronic/Vapor Former Smoker, Quit: September 12, 2016 2nd Hand Smoke Exposure: Yes Recent Infectious Disease Expo: No Recent Hopitalizations: No Immunizations Up To Date Tetanus Booster (TDap): Unknown Date of Influenza Vaccine: Mar 28, 2020 Seasonal Allergies Seasonal Allergies: No Past Medical History Surgeries: No Respiratory: Yes Asthma Cardiac: No Neurological: No Reproductive Disorders: No Female Reproductive Disorders: Denies Sexually Transmitted Disease: No HIV/AIDS: No Genitourinary: Yes UTI-Chronic Gastrointestinal: Yes Gall Bladder Disease Musculoskeletal: Yes (ANKYLOSING sPONDYLITIS) Chronic Back Pain Endocrine: Yes Hypothyroidsim HEENT: No Loss of Vision: Denies Hearing Impairment: Denies Cancer: Yes ("possible cervical cancer") Cervical Psychosocial: Yes Anxiety, Schizophrenia Integumentary: No Blood Disorders: No Adverse Reaction/Blood Tranf: No Family Medical History AIDS Alcoholism 19 MOTHER Ankylosing spondylitis 19 FATHER GRANDPARENTS (Paternal Grandmother) Arthritis GRANDPARENTS (Maternal Grandparents Paternal Grandparents) Diabetes mellitus GRANDPARENTS (Paternal Grandmother) Fibrocystic disease of breast GRANDPARENTS (Paternal Grandmother) Glioblastoma 19 MOTHER ( 08/10/13 ) Hypercholesterolemia GRANDPARENTS (Paternal Grandmother) Hypertension GRANDPARENTS (Paternal Grandmother) Neoplasm 19 MOTHER ( ) Osteoporosis 19 MOTHER Respiratory disorder GRANDPARENTS (Maternal Grandmother-Emphysema and COPD) Physical Exam Vital Signs - First Documented Capillary Refill : Less Than 3 Seconds Height, Weight, BMI Height: 5'8.00" Weight: 211lbs. 8.0oz. 95.870215pv; 33.00 BMI Method:Stated General Appearance: WD/WN, moderate distress HEENT: normal ENT inspection Respiratory: other (Appeared to be hyperventilating) Neurologic/Psychiatric: other (Moves all 4 extremities equally. Appeared paranoid and agitated. Would not allow exam.) Appearance/Memory: disheveled Skin: normal color, other (Diaphoretic) Progress/Results/Core Measures Results/Orders My Orders Orders - WILLIAM MOBLEY MD Ed Iv/Invasive Line Start (08/01/20 09:47) Lactated Ringers (Lr 1000 Ml Iv Solution (08/01/20 10:00) Lorazepam Injection (Ativan Injection) (08/01/20 10:00) Lorazepam Tablet (Ativan Tablet) (08/01/20 10:21) Vital Signs/I&O 08/01/20 09:21 B/P (MAP) Departure Impression Primary Impression: Methamphetamine abuse Additional Impressions: Agitation Paranoid Anxiety Disposition: 07 AGAINST MEDICAL ADVICE Condition: Against Medical Advice Departure-Patient Inst. Referrals: NO,LOCAL PHYSICIAN (PCP) Primary Care Physician Patient Instructions: ALCOHOL AND SUBSTANCE ABUSE WILLIAM MOBLEY MD Aug 01, 2020 10:53
== END 2020-08-01 10:50 | disposition left against medical advice (07) ==
LOC: EDUNIT# 09:21 → ER 09:23
DX: F15.10 Other stimulant abuse, uncomplicated (principal); F22 Delusional disorders; F41.9 Anxiety disorder, unspecified; R45.1 Restlessness and agitation; F20.9 Schizophrenia, unspecified; E03.9 Hypothyroidism, unspecified; J45.909 Unspecified asthma, uncomplicated; Z85.41 Personal history of malignant neoplasm of cervix uteri; Z87.891 Personal history of nicotine dependence; Z77.22 Contact with and (suspected) exposure to environmental tobacco smoke (acute) (chronic); Z79.890 Hormone replacement therapy; Z88.0 Allergy status to penicillin; Z88.1 Allergy status to other antibiotic agents; Z88.2 Allergy status to sulfonamides; Z88.5 Allergy status to narcotic agent
CPT/HCPCS: 99284

== ENCOUNTER 2021-05-11 18:30 | Emergency (ER) | payer MEDICAID ==
--- NOTE | 2021-05-11 21:11 | ED Back Pain ---
General Chief Complaint: Back Problems Stated Complaint: FINGER NUMBNESS/CAN'T FEEL WHEN SHE URINATES Source of Information: Patient Exam Limitations: No Limitations (BRITTNEY JONES APRN) History of Present Illness Date Seen by Provider: May 11, 2021 Time Seen by Provider: 21:09 Initial Comments To ER with numbness in both of her hands, intermittent numbness in both of her legs, urinary incontinence x2 over the course of the past few days. No fevers or chills. Location: C-Spine, Lumbar Spine Timing/Duration: 2-3 Days Severity: Moderate Pain/Injury Location: None Associated Symptoms: numbness in legs/feet, lower back pain (BRITTNEY JONES APRN) Allergies and Home Medications Allergies Coded Allergies: Penicillins (Verified Allergy, Unknown, RASH, 09/22/17) amoxicillin (Verified Allergy, Unknown, 09/22/17) codeine (Verified Allergy, Unknown, 07/23/18) meperidine (Verified Allergy, Unknown, 12/29/17) sulfamethoxazole (Verified Allergy, Unknown, 07/23/18) trimethoprim (Verified Allergy, Unknown, 07/23/18) Patient Home Medication List Home Medication List Reviewed: Yes (BRITTNEY JONES APRN) Cyclobenzaprine HCl (Cyclobenzaprine HCl) 5 Mg Tablet, 5 MG PO TID Prescribed by: BRITTNEY JONES on 07/05/20 1455 Gabapentin (Gabapentin) 800 Mg Tablet, 800 MG PO TID, (Reported) Entered as Reported by: EVIE GHOTRA on 05/28/20 1508 Levothyroxine Sodium (Levothyroxine Sodium) 88 Mcg Tablet, 88 MCG PO DAILY, (Reported) Entered as Reported by: EVIE GHOTRA on 05/28/20 1508 Paliperidone (Paliperidone ER) 6 Mg Tab.er.24, 6 MG PO HS, (Reported) Entered as Reported by: EVIE GHOTRA on 05/28/20 1508 Tramadol HCl (Ultram) 50 Mg Tablet, 50 MG PO Q6H PRN for PAIN-MODERATE (5-7) Prescribed by: BRITTNEY JONES on 07/05/20 1456 Trazodone HCl (Trazodone HCl) 50 Mg Tablet, 50 MG PO HS, (Reported) Entered as Reported by: EVIE GHOTRA on 05/28/20 1508 Vilazodone Hydrochloride (Viibryd) 20 Mg Tablet, 20 MG PO DAILY, (Reported) Entered as Reported by: EVIE GHOTRA on 05/28/20 1508 Review of Systems Constitutional: see HPI EENTM: see HPI Respiratory: no symptoms reported Cardiovascular: no symptoms reported Genitourinary: no symptoms reported Musculoskeletal: see HPI, back pain Skin: no symptoms reported Psychiatric/Neurological: No Symptoms Reported (BRITTNEY JONES APRN) Past Umgnwyc-Nwjrzj-Xnoqcw Hx Patient Social History Tobacco Use?: No Substance use?: No Alcohol Use?: No Pt feels they are or have been: No (BRITTNEY JONES APRN) Immunizations Up To Date Tetanus Booster (TDap): Unknown Influenza Vaccine Up-to-Date: No; Not Current (BRITTNEY JONES APRN) Seasonal Allergies Seasonal Allergies: No (BRITTNEY JONES APRN) Past Medical History Surgeries: No Respiratory: Yes Asthma Cardiac: No Neurological: No Reproductive Disorders: No Female Reproductive Disorders: Denies Sexually Transmitted Disease: No HIV/AIDS: No Genitourinary: Yes UTI-Chronic Gastrointestinal: Yes Gall Bladder Disease Musculoskeletal: Yes (ANKYLOSING sPONDYLITIS) Chronic Back Pain Endocrine: Yes Hypothyroidsim HEENT: No Loss of Vision: Denies Hearing Impairment: Denies Cancer: Yes ("possible cervical cancer") Cervical Psychosocial: Yes Anxiety, Schizophrenia Integumentary: No Blood Disorders: No Adverse Reaction/Blood Tranf: No (BRITTNEY JONES APRN) Family Medical History AIDS Alcoholism 19 MOTHER Ankylosing spondylitis 19 FATHER GRANDPARENTS (Paternal Grandmother) Arthritis GRANDPARENTS (Maternal Grandparents Paternal Grandparents) Diabetes mellitus GRANDPARENTS (Paternal Grandmother) Fibrocystic disease of breast GRANDPARENTS (Paternal Grandmother) Glioblastoma 19 MOTHER ( 08/10/13 ) Hypercholesterolemia GRANDPARENTS (Paternal Grandmother) Hypertension GRANDPARENTS (Paternal Grandmother) Neoplasm 19 MOTHER ( ) Osteoporosis 19 MOTHER Respiratory disorder GRANDPARENTS (Maternal Grandmother-Emphysema and COPD) Physical Exam Vital Signs Vital Signs - First Documented 05/11/21 20:20 Temp 35.8 Pulse 68 Resp 18 B/P (MAP) 108/77 (87) Pulse Ox 100 O2 Delivery Room Air (ALICIA LAMA DO) Vital Signs Capillary Refill : (BRITTNEY JONES APRN) Height, Weight, BMI Height: 5'8.00" Weight: 211lbs. 8.0oz. 95.980732fy; 33.00 BMI Method:Stated General Appearance: No Apparent Distress, WD/WN, Other (Flat affect does not make eye contact) Neck: Full Range of Motion, Normal Inspection Respiratory: No Accessory Muscle Use, No Respiratory Distress Gastrointestinal: Normal Bowel Sounds, Non Tender, Soft Neurologic/Psychiatric: Alert, Oriented x3 Skin: Normal Color, Warm/Dry (BRITTNEY JONES APRN) Progress/Results/Core Measures Results/Orders Lab Results Laboratory Tests Test 05/11/21 21:19 Range/Units Urine Color YELLOW Urine Clarity CLEAR Urine pH 6.0 5-9 Urine Specific [place] 1.020 1.016-1.022 Urine Protein NEGATIVE NEGATIVE Urine Glucose (UA) NEGATIVE NEGATIVE Urine Ketones NEGATIVE NEGATIVE Urine Nitrite NEGATIVE NEGATIVE Urine Bilirubin NEGATIVE NEGATIVE Urine Urobilinogen 0.2 < = 1.0 MG/DL Urine Leukocyte Esterase TRACE H NEGATIVE Urine RBC (Auto) 2+ H NEGATIVE Urine RBC 0-2 /HPF Urine WBC 0-2 /HPF Urine Crystals NONE /LPF Urine Bacteria TRACE /HPF Urine Casts NONE /LPF Urine Mucus NEGATIVE /LPF Urine Culture Indicated NO Urine Test NEGATIVE NEGATIVE Urine Opiates Screen NEGATIVE NEGATIVE Urine Oxycodone Screen NEGATIVE NEGATIVE Urine Methadone Screen NEGATIVE NEGATIVE Urine Propoxyphene Screen NEGATIVE NEGATIVE Urine Barbiturates Screen NEGATIVE NEGATIVE Ur Tricyclic Antidepressants Screen NEGATIVE NEGATIVE Urine Phencyclidine Screen NEGATIVE NEGATIVE Urine Amphetamines Screen NEGATIVE NEGATIVE Urine Methamphetamines Screen NEGATIVE NEGATIVE Urine Benzodiazepines Screen NEGATIVE NEGATIVE Urine Cocaine Screen NEGATIVE NEGATIVE Urine Cannabinoids Screen NEGATIVE NEGATIVE (ALICIA LAMA DO) Vital Signs/I&O 05/11/21 05/11/21 20:20 22:06 Temp 35.8 35.8 Pulse 68 62 Resp 18 18 B/P (MAP) 108/77 (87) 108/77 Pulse Ox 100 100 O2 Delivery Room Air Room Air (ALICIA LAMA DO) Departure Impression Primary Impression: Dysuria Additional Impression: Paresthesias Disposition: 01 HOME, SELF-CARE Condition: Stable Departure-Patient Inst. Decision time for Depature: 21:52 (BRITTNEY JONES APRN) Referrals: NO,LOCAL PHYSICIAN (PCP/Family) Primary Care Physician Patient Instructions: Paresthesia (DC) Add. Discharge Instructions: 1. Follow-up with primary care. Call tomorrow to make an appointment to be seen. He will need further evaluation of the symptoms which cannot be performed in the emergency room. All discharge instructions reviewed with patient and/or family. Voiced understanding. ATTENDING PHYSICIAN NOTE: I WAS PHYSICALLY PRESENT ER PHYSICIAN WHEN THIS PATIENT WAS IN ER, BUT I WAS NOT INVOLVED IN ANY DECISION MAKING OR ANY CARE OF THIS PATIENT. (ALICIA LAMA DO) BRITTNEY JONES APRN May 11, 2021 21:11 ALICIA LAMA DO May 13, 2021 03:24
[2021-05-11 21:24] LABS: BILIRUBIN,URINE NEGATIVE (NEGATIVE); CLARITY,URINE CLEAR; COLOR,URINE YELLOW; GLUCOSE, URINE (UA) NEGATIVE (NEGATIVE); KETONES,URINE NEGATIVE (NEGATIVE); LEUKOCYTE ESTERASE ,URINE TRACE (NEGATIVE); NITRITE,URINE NEGATIVE (NEGATIVE); PROTEIN,URINE NEGATIVE (NEGATIVE)
[2021-05-11 21:34] LABS: BACTERIA,URINE TRACE /HPF; RBC,URINE 0-2 /HPF; WBC,URINE 0-2 /HPF
[2021-05-11 21:37] LABS: AMPHETAMINE SCREEN, URINE NEGATIVE (NEGATIVE); BARBITURATE SCREEN URINE NEGATIVE (NEGATIVE); BENZODIAZEPINES SCREEN URINE NEGATIVE (NEGATIVE); CANNABINOID SCREEN, URINE NEGATIVE (NEGATIVE); COCAINE SCREEN URINE NEGATIVE (NEGATIVE); HCG,QUALITATIVE URINE NEGATIVE (NEGATIVE); METHADONE STAT NEGATIVE (NEGATIVE); METHAMPHETAMINE SCREEN URINE S NEGATIVE (NEGATIVE); OPIATE SCREEN URINE NEGATIVE (NEGATIVE); OXYCODONE STAT NEGATIVE (NEGATIVE); PROPOXYPHENE STAT NEGATIVE (NEGATIVE); TRICYCLIC ANTIDEPRESSANTS SCRE NEGATIVE (NEGATIVE)
[2021-05-11] MEDS ORDERED: KETOROLAC 60 MG/2 ML VIAL IM ONE (21:45)
--- NOTE | 2021-05-11 21:46 | Diagnostic Imaging Report ---
PROCEDURE: CT lumbar spine without contrast. TECHNIQUE: Multiple contiguous axial images were obtained through the lumbar spine without the use of intravenous contrast. Sagittal and coronal reformations were then performed. Auto Exposure Controls were utilized during the CT exam to meet ALARA standards for radiation dose reduction. INDICATION: Back pain, incontinence. COMPARISON: None. FINDINGS: Alignment of the lumbar column is normal. There is no subluxation or fracture. No degeneration is identified. There is no osseous lesion. No inflammation is present. The SI joints are symmetric. No obvious central canal stenosis is identified. IMPRESSION: Negative CT of the lumbar spine. Dictated by: Dictated on workstation # [id number]
--- NOTE | 2021-05-11 21:48 | Diagnostic Imaging Report ---
PROCEDURE: CT head and CT cervical spine without contrast. TECHNIQUE: Multiple contiguous axial images were obtained through the brain and cervical spine without the use of intravenous contrast. Sagittal and coronal reformations through the cervical spine were then performed. Auto Exposure Controls were utilized during the CT exam to meet ALARA standards for radiation dose reduction. INDICATION: Incontinence. Head and neck pain. COMPARISON: CT head 09/04/2017 CT HEAD: The ventricles are normal in size, shape and position. There is no midline shift or mass effect. There is no hemorrhage or evidence of acute ischemia. No extraaxial fluid collection or mass is identified. The bony calvarium, paranasal sinuses and mastoids are unremarkable. IMPRESSION: 1. Negative CT head. CT CERVICAL SPINE: Alignment is normal. There is no subluxation, fracture or degeneration. The central canal appears widely patent. No osseous lesion is seen. IMPRESSION: 1. Negative CT cervical spine. Dictated by: Dictated on workstation # [id number]
[2021-05-11 22:06] VITALS: BP 108/77
== END 2021-05-11 22:06 | disposition home or self-care (01) ==
LOC: EDUNIT# 18:30 → ER 18:33
DX: R30.0 Dysuria (principal); R20.2 Paresthesia of skin; J45.909 Unspecified asthma, uncomplicated; E03.9 Hypothyroidism, unspecified; F41.9 Anxiety disorder, unspecified; F20.9 Schizophrenia, unspecified; G89.29 Other chronic pain; M54.9 Dorsalgia, unspecified; Z79.890 Hormone replacement therapy; Z79.899 Other long term (current) drug therapy; Z79.891 Long term (current) use of opiate analgesic
CPT/HCPCS: 70450; 72125; 72131; 80306; 81000; 84703; 96372; 99284

== ENCOUNTER 2021-06-11 10:45 | Emergency (ER) | payer MEDICAID ==
[~2021-06-11] VITALS: Ht 172 cm; Wt 88.9 kg
--- NOTE | 2021-06-11 11:07 | ED Cough/URI ---
General Chief Complaint: COVID19 Suspect/Confirmed Stated Complaint: FEVER,CHILLS,CONGESTION,COUGH,SOB Nursing Triage Note: PT AMBULATORY TO ER, PT C/O COUGH, RUNNY NOSE, FEVER, BODY ACHES ONSET 3 DAYS AGO, DID NOT RECEIVE A COVID VACCINE. PT ALSO C/O ABD PAIN, PT WAS SEEN AT [facility] ON 06/07, DX WITH CHOLELITHASIS, GIVEN RX FOR TRAMADOL AND F/U WITH GENERAL SURGERY. Source: patient Exam Limitations: no limitations History of Present Illness Date Seen by Provider: Jun 11, 2021 Time Seen by Provider: 11:07 Initial Comments To ER with 3 days of cough runny nose congestion. No fevers or chills. She also had an episode of right upper quadrant abdominal pain for which she was seen at [facility] recently and diagnosed with cholelithiasis. She is scheduled to see Dr. Jenkins in 5 days. She ran out of tramadol and had a recurrent episode of abdominal pain this morning. Timing/Duration: constant Severity/Quality: moderate Associated Symptoms: cough, nasal congestion, nasal drainage Allergies and Home Medications Allergies Coded Allergies: Penicillins (Verified Allergy, Unknown, RASH, 09/22/17) amoxicillin (Verified Allergy, Unknown, 09/22/17) codeine (Verified Allergy, Unknown, 07/23/18) meperidine (Verified Allergy, Unknown, 12/29/17) sulfamethoxazole (Verified Allergy, Unknown, 07/23/18) trimethoprim (Verified Allergy, Unknown, 07/23/18) Patient Home Medication List Home Medication List Reviewed: Yes Cyclobenzaprine HCl (Cyclobenzaprine HCl) 5 Mg Tablet, 5 MG PO TID Prescribed by: BRITTNEY JONES on 07/05/20 1455 D-Methorphan Hb/P-Epd HCl/Bpm (Bromfed Dm Cough Syrup) 118 Ml Syrup, 5 ML PO Q6H PRN for CONGESTION Prescribed by: BRITTNEY JONES on 06/11/21 1158 Gabapentin (Gabapentin) 800 Mg Tablet, 800 MG PO TID, (Reported) Entered as Reported by: EVIE GHOTRA on 05/28/20 1508 Levothyroxine Sodium (Levothyroxine Sodium) 88 Mcg Tablet, 88 MCG PO DAILY, (Reported) Entered as Reported by: EVIE GHOTRA on 05/28/20 1508 Paliperidone (Paliperidone ER) 6 Mg Tab.er.24, 6 MG PO HS, (Reported) Entered as Reported by: EVIE GHOTRA on 05/28/20 1508 Tramadol HCl (Ultram) 50 Mg Tablet, 50 MG PO Q6H PRN for PAIN-MODERATE (5-7) Prescribed by: BRITTNEY JONES on 07/05/20 1456 Trazodone HCl (Trazodone HCl) 50 Mg Tablet, 50 MG PO HS, (Reported) Entered as Reported by: EVIE GHOTRA on 05/28/20 1508 Vilazodone Hydrochloride (Viibryd) 20 Mg Tablet, 20 MG PO DAILY, (Reported) Entered as Reported by: EVIE GHOTRA on 05/28/20 1508 Review of Systems Review of Systems Constitutional: see HPI EENTM: see HPI, nose congestion Respiratory: see HPI, cough Cardiovascular: no symptoms reported Genitourinary: no symptoms reported Musculoskeletal: no symptoms reported Skin: no symptoms reported Psychiatric/Neurological: No Symptoms Reported Hematologic/Lymphatic: No Symptoms Reported Past Djpuhoo-Hedcfv-Qrlazp Hx Patient Social History Tobacco Use?: No Use of E-Cig and/or Vaping dev: Yes Substance use?: No Alcohol Use?: No Pt feels they are or have been: No Immunizations Up To Date Tetanus Booster (TDap): Unknown Influenza Vaccine Up-to-Date: Yes; Up-to-Date Seasonal Allergies Seasonal Allergies: No Past Medical History Surgeries: No Respiratory: Yes Asthma Cardiac: No Neurological: No Last Menstrual Period: May 28, 2021 Reproductive Disorders: No Female Reproductive Disorders: Denies Sexually Transmitted Disease: No HIV/AIDS: No Genitourinary: Yes UTI-Chronic Gastrointestinal: Yes Gall Bladder Disease Musculoskeletal: Yes (ANKYLOSING sPONDYLITIS) Chronic Back Pain Endocrine: Yes Hypothyroidsim HEENT: No Loss of Vision: Denies Hearing Impairment: Denies Cancer: Yes ("possible cervical cancer") Cervical Psychosocial: Yes Anxiety, Schizophrenia Integumentary: No Blood Disorders: No Adverse Reaction/Blood Tranf: No Family Medical History AIDS Alcoholism 19 MOTHER Ankylosing spondylitis 19 FATHER GRANDPARENTS (Paternal Grandmother) Arthritis GRANDPARENTS (Maternal Grandparents Paternal Grandparents) Diabetes mellitus GRANDPARENTS (Paternal Grandmother) Fibrocystic disease of breast GRANDPARENTS (Paternal Grandmother) Glioblastoma 19 MOTHER ( 08/10/13 ) Hypercholesterolemia GRANDPARENTS (Paternal Grandmother) Hypertension GRANDPARENTS (Paternal Grandmother) Neoplasm 19 MOTHER ( ) Osteoporosis 19 MOTHER Respiratory disorder GRANDPARENTS (Maternal Grandmother-Emphysema and COPD) Physical Exam Vital Signs - First Documented 06/11/21 10:50 Temp 36.4 Pulse 106 Resp 18 B/P (MAP) 131/82 (98) Pulse Ox 97 O2 Delivery Room Air Capillary Refill : Height: 5'8.00" Weight: 211lbs. 8.0oz. 95.901019at; 30.00 BMI Method:Stated General Appearance: WD/WN, no apparent distress Eyes: Bilateral Eye Normal Inspection, Bilateral Eye PERRL, Bilateral Eye EOMI HEENT: PERRL/EOMI, normal ENT inspection Neck: non-tender, full range of motion Respiratory: no respiratory distress, no accessory muscle use Cardiovascular: regular rate, rhythm, no murmur Gastrointestinal: normal bowel sounds, non tender, soft Extremities: normal range of motion, non-tender Neurologic/Psychiatric: alert, normal mood/affect, oriented x 3 Skin: normal color, warm/dry Progress/Results/Core Measures Suspected Sepsis SIRS Temperature: Pulse: 106 Respiratory Rate: 18 Laboratory Tests 06/11/21 11:10: White Blood Count 4.2L Blood Pressure 131 /82 Mean: 98 Laboratory Tests 06/11/21 11:10: Creatinine 0.80, Platelet Count 224, Total Bilirubin 0.3 Results/Orders Lab Results Laboratory Tests Test 06/11/21 10:52 06/11/21 11:10 Range/Units Influenza Type A (RT-PCR) Not Detected Not Detecte Influenza Type B (RT-PCR) Not Detected Not Detecte SARS-CoV-2 RNA (RT-PCR) Not Detected Not Detecte White Blood Count 4.2 L 4.3-11.0 10^3/uL Red Blood Count 4.52 3.80-5.11 10^6/uL Hemoglobin 13.2 11.5-16.0 g/dL Hematocrit 39 35-52 % Mean Corpuscular Volume 85 80-99 fL Mean Corpuscular Hemoglobin 29 25-34 pg Mean Corpuscular Hemoglobin Concent 34 32-36 g/dL Red Cell Distribution Width 12.5 10.0-14.5 % Platelet Count 224 130-400 10^3/uL Mean Platelet Volume 10.4 9.0-12.2 fL Immature Granulocyte % (Auto) 0 % Neutrophils (%) (Auto) 56 42-75 % Lymphocytes (%) (Auto) 21 12-44 % Monocytes (%) (Auto) 17 H 0-12 % Eosinophils (%) (Auto) 5 0-10 % Basophils (%) (Auto) 1 0-10 % Neutrophils # (Auto) 2.3 1.8-7.8 10^3/uL Lymphocytes # (Auto) 0.9 L 1.0-4.0 10^3/uL Monocytes # (Auto) 0.7 0.0-1.0 10^3/uL Eosinophils # (Auto) 0.2 0.0-0.3 10^3/uL Basophils # (Auto) 0.1 0.0-0.1 10^3/uL Immature Granulocyte # (Auto) 0.0 0.0-0.1 10^3/uL Sodium Level 138 135-145 MMOL/L Potassium Level 4.0 3.6-5.0 MMOL/L Chloride Level 107 98-107 MMOL/L Carbon Dioxide Level 22 21-32 MMOL/L Anion Gap 9 5-14 MMOL/L Blood Urea Nitrogen 6 L 7-18 MG/DL Creatinine 0.80 0.60-1.30 MG/DL Estimat Glomerular Filtration Rate 98 BUN/Creatinine Ratio 8 Glucose Level 94 70-105 MG/DL Calcium Level 9.3 8.5-10.1 MG/DL Corrected Calcium 9.2 8.5-10.1 MG/DL Total Bilirubin 0.3 0.1-1.0 MG/DL Aspartate Amino Transf (AST/SGOT) 14 5-34 U/L Alanine Aminotransferase (ALT/SGPT) 14 0-55 U/L Alkaline Phosphatase 42 40-136 U/L Total Protein 6.9 6.4-8.2 GM/DL Albumin 4.1 3.2-4.5 GM/DL Lipase 20 8-78 U/L Serum Test, Qualitative NEGATIVE NEGATIVE My Orders Orders - BRITTNEY JONES APRN Influenza A And B By Pcr (06/11/21 11:06) Covid 19 Inhouse Test (06/11/21 11:06) Cbc With Automated Diff (06/11/21 11:06) Hcg,Qualitative Serum (06/11/21 11:06) Lipase (06/11/21 11:06) Comprehensive Metabolic Panel (06/11/21 11:06) Vital Signs/I&O 06/11/21 06/11/21 10:50 11:45 Temp 36.4 Pulse 106 94 Resp 18 18 B/P (MAP) 131/82 (98) 140/89 Pulse Ox 97 97 O2 Delivery Room Air Room Air Capillary Refill : Blood Pressure Mean: 98 Departure Impression Primary Impression: History of cholelithiasis Additional Impression: Viral syndrome Disposition: HOME, SELF-CARE Condition: Stable Departure-Patient Inst. Decision time for Depature: 11:56 Referrals: NO,LOCAL PHYSICIAN (PCP) Primary Care Physician Patient Instructions: Viral Syndrome (DC) Add. Discharge Instructions: 1. Return to ER for any concerns. Follow-up with your doctor next week. Follow-up with surgery as directed for the gallbladder issues. All discharge instructions reviewed with patient and/or family. Voiced understanding. Scripts Tramadol HCl (Tramadol HCl) 50 Mg Tablet 50 MG PO Q6H PRN for PAIN for 3 Days, #10 TAB 0 Refills Prov: BRITTNEY JONES APRN 06/11/21 D-Methorphan Hb/P-Epd HCl/Bpm (Bromfed Dm Cough Syrup) 118 Ml Syrup 5 ML PO Q6H PRN for CONGESTION for 7 Days, #60 ML Prov: BRITTNEY JONES APRN 06/11/21 Work/School Note: Work Release Form Date Seen in the Emergency Department: Jun 11, 2021 Return to Work: Jun 14, 2021 BRITTNEY JONES APRN Jun 11, 2021 11:07
[2021-06-11 11:22] LABS: BASOPHILS # (AUTO) 0.1 10^3/uL (0.0-0.1); BASOPHILS % (AUTO) 1 % (0-10); EOSINOPHILS # (AUTO) 0.2 10^3/uL (0.0-0.3); EOSINOPHILS % (AUTO) 5 % (0-10); HEMATOCRIT 39 % (35-52); HEMOGLOBIN 13.2 g/dL (11.5-16.0); LYMPHOCYTES # (AUTO) 0.9 10^3/uL (1.0-4.0); LYMPHOCYTES % (AUTO) 21 % (12-44); MEAN CORPUSCULAR HEMOGLOBIN 29 pg (25-34); MEAN CORPUSCULAR HGB CONC 34 g/dL (32-36); MEAN CORPUSCULAR VOLUME 85 fL (80-99); MEAN PLATELET VOLUME 10.4 fL (9.0-12.2); MONOCYTES # (AUTO) 0.7 10^3/uL (0.0-1.0); MONOCYTES % (AUTO) 17 % (0-12); NEUTROPHILS # (AUTO) 2.3 10^3/uL (1.8-7.8); NEUTROPHILS % (AUTO) 56 % (42-75); PLATELET COUNT 224 10^3/uL (130-400); WHITE BLOOD COUNT 4.2 10^3/uL (4.3-11.0)
[2021-06-11 11:31] LABS: ALBUMIN 4.1 GM/DL (3.2-4.5)
[2021-06-11 11:32] LABS: CALCIUM 9.3 MG/DL (8.5-10.1)
[2021-06-11 11:33] LABS: TOTAL PROTEIN 6.9 GM/DL (6.4-8.2)
[2021-06-11 11:35] LABS: BILIRUBIN,TOTAL 0.3 MG/DL (0.1-1.0)
[2021-06-11 11:37] LABS: CREATININE SERUM 0.8 MG/DL (0.60-1.30)
[2021-06-11] MEDS ORDERED: D-ME118S33 PO (11:57)
[2021-06-11] MEDS ORDERED: TRM50T PO (12:08)
[2021-06-11 12:11] VITALS: BP 144/74
== END 2021-06-11 12:11 | disposition home or self-care (01) ==
LOC: EDUNIT# 10:45 → ER 10:48
DX: B34.9 Viral infection, unspecified (principal); J45.909 Unspecified asthma, uncomplicated; F41.9 Anxiety disorder, unspecified; F20.9 Schizophrenia, unspecified; G89.29 Other chronic pain; M54.9 Dorsalgia, unspecified; E03.9 Hypothyroidism, unspecified; Z87.442 Personal history of urinary calculi; Z79.890 Hormone replacement therapy; Z79.891 Long term (current) use of opiate analgesic; Z79.899 Other long term (current) drug therapy; Z88.5 Allergy status to narcotic agent; Z32.02 Encounter for pregnancy test, result negative; Z20.822 Contact with and (suspected) exposure to COVID-19
CPT/HCPCS: 36415; 80053; 83690; 84703; 85025; 87636; 99282

== ENCOUNTER 2021-06-14 16:22 | Emergency (ER) | payer MEDICAID ==
[~2021-06-14] VITALS: Ht 173 cm; Wt 89.0 kg
[~2021-06-14 16:22] MED LIST changes: +D-ME118S33 PO; +TRM50T PO
[2021-06-14 18:15] VITALS: BP 110/75
--- NOTE | 2021-06-14 19:03 | ED GI ---
General Chief Complaint: Abdominal/GI Problems Stated Complaint: GALLBLADDER PAIN, PAIN MEDICINE,WAS HERE 0211 Nursing Triage Note: PT AMB TO ED BY POV WITH C/O ABD PAIN AND NAUSEA. PT REPORTS SHE WAS SEEN HERE 3 DAYS AGO AND DX WITH GALLSTONES. PT REPORTS SHE HAS NOT FOLLOWED UP WITH HER PCP AND IS ALMOST OUT OF PAIN MEDICINE. RATES ABD PAIN 8/10 AND ACHY. Source of Information: Patient Exam Limitations: No Limitations (DONA FUNG) History of Present Illness Time Seen by Provider: 19:00 Initial Comments Patient is a 35-year-old female with a history of cholelithiasis who presents ED with upper abdominal pain. Pain described as dull and constant with intermittent sharp pain. Some pain discomfort with eating. She reports nausea.vomiting or diarrhea. She was seen here on the and states she had similar type pain but has not improved with tramadol or Zofran. She is scheduled follow-up with Dr. Dueñas this week. Denies fever, chills, and dysuria, headache, dizziness. (DONA FUNG) Date Seen by Provider: Jun 14, 2021 (PHILLIP MORALES MD) Allergies and Home Medications Allergies Coded Allergies: Penicillins (Verified Allergy, Unknown, RASH, 09/22/17) amoxicillin (Verified Allergy, Unknown, 09/22/17) codeine (Verified Allergy, Unknown, 07/23/18) meperidine (Verified Allergy, Unknown, 12/29/17) sulfamethoxazole (Verified Allergy, Unknown, 07/23/18) trimethoprim (Verified Allergy, Unknown, 07/23/18) Patient Home Medication List Home Medication List Reviewed: Yes (DONA FUNG) Cyclobenzaprine HCl (Cyclobenzaprine HCl) 5 Mg Tablet, 5 MG PO TID Prescribed by: BRITTNEY JONES on 07/05/20 1455 D-Methorphan Hb/P-Epd HCl/Bpm (Bromfed Dm Cough Syrup) 118 Ml Syrup, 5 ML PO Q6H PRN for CONGESTION Prescribed by: BRITTNEY JONES on 06/11/21 1158 Gabapentin (Gabapentin) 800 Mg Tablet, 800 MG PO TID, (Reported) Entered as Reported by: EVIE GHOTRA on 05/28/20 1508 Levothyroxine Sodium (Levothyroxine Sodium) 88 Mcg Tablet, 88 MCG PO DAILY, (Reported) Entered as Reported by: EVIE GHOTRA on 05/28/20 1508 Ondansetron (Ondansetron Odt) 4 Mg Tab.rapdis, 4 MG PO Q6H PRN for NAUSEA-1ST LINE Prescribed by: ANA ROSA CALVILLO on 06/14/21 2030 Paliperidone (Paliperidone ER) 6 Mg Tab.er.24, 6 MG PO HS, (Reported) Entered as Reported by: EVIE GHOTRA on 05/28/20 1508 Tramadol HCl (Ultram) 50 Mg Tablet, 50 MG PO Q6H PRN for PAIN-MODERATE (5-7) Prescribed by: BRITTNEY JONES on 07/05/20 1456 Tramadol HCl (Tramadol HCl) 50 Mg Tablet, 50 MG PO Q6H PRN for PAIN Prescribed by: BRITTNEY JONES on 06/11/21 1209 Tramadol HCl (Tramadol HCl) 50 Mg Tablet, 50 MG PO Q4H PRN for PAIN-MILD (1-4) Prescribed by: ANA ROSA CALVILLO on 06/14/21 2031 Trazodone HCl (Trazodone HCl) 50 Mg Tablet, 50 MG PO HS, (Reported) Entered as Reported by: EVIE GHOTRA on 05/28/20 1508 Vilazodone Hydrochloride (Viibryd) 20 Mg Tablet, 20 MG PO DAILY, (Reported) Entered as Reported by: EVIE GHOTRA on 05/28/20 1508 Review of Systems Review of Systems Constitutional: No chills, No diaphoresis, No dizziness, No fever, No malaise EENTM: No Double Vision, No Eye Pain, No Ear Drainage, No Ear Pain, No Mouth Pain Respiratory: Denies Cough, Denies SOA With Exertion, Denies SOA at Rest Cardiovascular: Denies Chest Pain, Denies Edema Gastrointestinal: Denies Abdomen Distended; Abdominal Pain; Denies Diarrhea, Denies Difficulty Swallowing; Nausea; Denies Vomiting Genitourinary: Denies Burning, Denies Discharge, Denies Drainage, Denies Frequency Musculoskeletal: No back pain, No joint pain Skin: No change in color, No change in hair/nails (DONA FUNG) All Other Systems Reviewed Negative Unless Noted: Yes (DONA FUNG) Past Lwxvmqv-Fudfwr-Aesock Hx Patient Social History Tobacco Use?: No Use of E-Cig and/or Vaping dev: Yes E-Cig or Vaping type used: Nicotine Use of E-Cig and/or Vaping Ryan: Current Everyday User Substance use?: No Alcohol Use?: No Pt feels they are or have been: No (DONA FUNG) Immunizations Up To Date Tetanus Booster (TDap): Unknown Influenza Vaccine Up-to-Date: No; Not Current First/Initial COVID19 Vaccinat: N/A (DONA FUNG) Seasonal Allergies Seasonal Allergies: No (DONA UFNG) Past Medical History Surgery/Hospitalization HX: HYPOTHYROID Surgeries: No Respiratory: Yes Asthma Cardiac: No Neurological: No Reproductive Disorders: No Female Reproductive Disorders: Denies Sexually Transmitted Disease: No HIV/AIDS: No Genitourinary: Yes UTI-Chronic Gastrointestinal: Yes Gall Bladder Disease Musculoskeletal: Yes (ANKYLOSING sPONDYLITIS) Chronic Back Pain Endocrine: Yes Hypothyroidsim HEENT: No Loss of Vision: Denies Hearing Impairment: Denies Cancer: Yes ("possible cervical cancer") Cervical Psychosocial: Yes Anxiety, Schizophrenia Integumentary: No Blood Disorders: No Adverse Reaction/Blood Tranf: No (DONA FUNG) Family Medical History AIDS Alcoholism 19 MOTHER Ankylosing spondylitis 19 FATHER GRANDPARENTS (Paternal Grandmother) Arthritis GRANDPARENTS (Maternal Grandparents Paternal Grandparents) Diabetes mellitus GRANDPARENTS (Paternal Grandmother) Fibrocystic disease of breast GRANDPARENTS (Paternal Grandmother) Glioblastoma 19 MOTHER ( 08/10/13 ) Hypercholesterolemia GRANDPARENTS (Paternal Grandmother) Hypertension GRANDPARENTS (Paternal Grandmother) Neoplasm 19 MOTHER ( ) Osteoporosis 19 MOTHER Respiratory disorder GRANDPARENTS (Maternal Grandmother-Emphysema and COPD) Physical Exam Vital Signs Vital Signs - First Documented 06/14/21 18:15 Temp 36.5 Pulse 79 Resp 18 B/P (MAP) 110/75 (87) Pulse Ox 99 O2 Delivery Room Air (PHILLIP MORALES MD) Vital Signs Capillary Refill : Less Than 3 Seconds (DONA FUNG) Height/Weight/BMI Height: 5'8.00" Weight: 211lbs. 8.0oz. 95.597556rn; 29.00 BMI Method:Stated General Appearance: WD/WN, no apparent distress HEENT: PERRL/EOMI, normal ENT inspection, TMs normal, pharynx normal Neck: non-tender, full range of motion, supple, normal inspection Respiratory: chest non-tender, lungs clear, normal breath sounds, no respiratory distress, no accessory muscle use Cardiovascular: regular rate, rhythm, no edema, no gallop, no JVD, no murmur Gastrointestinal: normal bowel sounds, soft, no organomegaly, tenderness (Epigastric) Extremities: normal range of motion, non-tender, normal inspection, no pedal edema, no calf tenderness Neurologic/Psychiatric: supervisor policy change clerks II-XII nml as tested, no motor/sensory deficits, alert, normal mood/affect, oriented x 3 (DONA FUNG) Progress/Results/Core Measures Results/Orders Lab Results Laboratory Tests Test 06/14/21 19:10 06/14/21 20:00 Range/Units White Blood Count 4.3 4.3-11.0 10^3/uL Red Blood Count 4.58 3.80-5.11 10^6/uL Hemoglobin 13.1 11.5-16.0 g/dL Hematocrit 40 35-52 % Mean Corpuscular Volume 87 80-99 fL Mean Corpuscular Hemoglobin 29 25-34 pg Mean Corpuscular Hemoglobin Concent 33 32-36 g/dL Red Cell Distribution Width 12.6 10.0-14.5 % Platelet Count 235 130-400 10^3/uL Mean Platelet Volume 10.9 9.0-12.2 fL Immature Granulocyte % (Auto) 0 % Neutrophils (%) (Auto) 40 L 42-75 % Lymphocytes (%) (Auto) 47 H 12-44 % Monocytes (%) (Auto) 8 0-12 % Eosinophils (%) (Auto) 3 0-10 % Basophils (%) (Auto) 1 0-10 % Neutrophils # (Auto) 1.7 L 1.8-7.8 10^3/uL Lymphocytes # (Auto) 2.0 1.0-4.0 10^3/uL Monocytes # (Auto) 0.4 0.0-1.0 10^3/uL Eosinophils # (Auto) 0.1 0.0-0.3 10^3/uL Basophils # (Auto) 0.1 0.0-0.1 10^3/uL Immature Granulocyte # (Auto) 0.0 0.0-0.1 10^3/uL Sodium Level 141 135-145 MMOL/L Potassium Level 4.5 3.6-5.0 MMOL/L Chloride Level 108 H 98-107 MMOL/L Carbon Dioxide Level 23 21-32 MMOL/L Anion Gap 10 5-14 MMOL/L Blood Urea Nitrogen 10 7-18 MG/DL Creatinine 0.80 0.60-1.30 MG/DL Estimat Glomerular Filtration Rate 98 BUN/Creatinine Ratio 13 Glucose Level 89 70-105 MG/DL Calcium Level 9.2 8.5-10.1 MG/DL Corrected Calcium 9.3 8.5-10.1 MG/DL Total Bilirubin 0.3 0.1-1.0 MG/DL Aspartate Amino Transf (AST/SGOT) 13 5-34 U/L Alanine Aminotransferase (ALT/SGPT) 15 0-55 U/L Alkaline Phosphatase 39 L 40-136 U/L Total Protein 7.1 6.4-8.2 GM/DL Albumin 3.9 3.2-4.5 GM/DL Lipase 28 8-78 U/L Urine Color YELLOW Urine Clarity CLEAR Urine pH 6.0 5-9 Urine Specific Blanchard 1.025 H 1.016-1.022 Urine Protein NEGATIVE NEGATIVE Urine Glucose (UA) NEGATIVE NEGATIVE Urine Ketones NEGATIVE NEGATIVE Urine Nitrite NEGATIVE NEGATIVE Urine Bilirubin NEGATIVE NEGATIVE Urine Urobilinogen 0.2 < = 1.0 MG/DL Urine Leukocyte Esterase NEGATIVE NEGATIVE Urine RBC (Auto) NEGATIVE NEGATIVE Urine RBC NONE /HPF Urine WBC RARE /HPF Urine Crystals PRESENT H /LPF Urine Amorphous Sediment RARE GUANAKITO URATES H /LPF Urine Bacteria TRACE /HPF Urine Casts NONE /LPF Urine Mucus NEGATIVE /LPF Urine Culture Indicated NO Urine Test NEGATIVE NEGATIVE (PHILLIP MORALES MD) Medications Given in ED Current Medications Medications Dose Ordered Sig/Carola Route Start Time Stop Time Status Last Admin Dose Admin Ondansetron HCl 4 mg ONCE ONCE PO 06/14/21 19:15 06/14/21 19:16 DC 06/14/21 19:18 4 MG Tramadol HCl 50 mg ONCE ONCE PO 06/14/21 20:45 06/14/21 20:46 DC 06/14/21 20:43 50 MG (PHILLIP MORALES MD) Vital Signs/I&O 06/14/21 18:15 Temp 36.5 Pulse 79 Resp 18 B/P (MAP) 110/75 (87) Pulse Ox 99 O2 Delivery Room Air (PHILLIP MORALES MD) Blood Pressure Mean: 87 Departure Communication (Admissions) Patient presents ED with upper abdominal pain. She states she was diagnosed with cholelithiasis recently. She was seen at [facility] and states she had a positive imaging. She was here 4 days ago with similar pain was prescribed pain medication. Requesting refill of her pain medication. She states she has a follow-up with Dr. Hadley general surgeon for further evaluation this week. She does have epigastric tenderness. Nausea without vomiting or diarrhea. She was given oral Zofran. Tolerating p.o. fluids here in the bedside. Discussed with patient recommend lab work to evaluate for leukocytosis, elevated liver enzymes or bilirubin. She does not appear jaundiced. Her lab work was reassuring here in the ED. No surgical abdomen. Did offer ultrasound of her upper abdomen. She states she would rather wait at this time. Likely gallbladder disease versus gastritis. Denies any dark tarry stool. No history of peptic ulcer disease. Discussed Protonix 40 mg daily. Will prescribe Zofran. Return precautions were discussed with patient. No chest pain, shortness breath, cough, fever, vomiting, diarrhea (DONA FUNG) Impression Primary Impression: Abdominal pain Disposition: 01 HOME, SELF-CARE Condition: Stable Departure-Patient Inst. Decision time for Depature: 20:25 (DONA FUNG) Referrals: [facility] [place] NO,LOCAL PHYSICIAN (PCP) Primary Care Physician Patient Instructions: Abdominal Pain, Adult ED Scripts Tramadol HCl (Tramadol HCl) 50 Mg Tablet 50 MG PO Q4H PRN for PAIN-MILD (1-4), #10 TAB Prov: DONA FUNG 06/14/21 Ondansetron (Ondansetron Odt) 4 Mg Tab.rapdis 4 MG PO Q6H PRN for NAUSEA-1ST LINE, #10 TAB Prov: DONA FUNG 06/14/21 DONA FUNG Jun 14, 2021 19:03 PHILLIP MORALES MD Jun 15, 2021 04:50
[2021-06-14] MEDS ORDERED: ONDANSETRON 4 MG (ZOFRAN) ORAL DISSOLVE TAB ONE (19:15)
[2021-06-14] MEDS ORDERED: ONDANSETRON 4 MG/5 ML ORAL SOLN (ZOFRAN) 5 ML PO ONE (19:15)
[2021-06-14] MEDS ORDERED: ONDANSETRON 4 MG (ZOFRAN) ORAL DISSOLVE TAB PO ONE (19:15)
[2021-06-14 19:31] LABS: BASOPHILS # (AUTO) 0.1 10^3/uL (0.0-0.1); BASOPHILS % (AUTO) 1 % (0-10); EOSINOPHILS # (AUTO) 0.1 10^3/uL (0.0-0.3); EOSINOPHILS % (AUTO) 3 % (0-10); HEMATOCRIT 40 % (35-52); HEMOGLOBIN 13.1 g/dL (11.5-16.0); LYMPHOCYTES % (AUTO) 47 % (12-44); MEAN CORPUSCULAR HEMOGLOBIN 29 pg (25-34); MEAN CORPUSCULAR HGB CONC 33 g/dL (32-36); MEAN CORPUSCULAR VOLUME 87 fL (80-99); MEAN PLATELET VOLUME 10.9 fL (9.0-12.2); MONOCYTES # (AUTO) 0.4 10^3/uL (0.0-1.0); MONOCYTES % (AUTO) 8 % (0-12); NEUTROPHILS # (AUTO) 1.7 10^3/uL (1.8-7.8); NEUTROPHILS % (AUTO) 40 % (42-75); PLATELET COUNT 235 10^3/uL (130-400); WHITE BLOOD COUNT 4.3 10^3/uL (4.3-11.0)
[2021-06-14 20:04] LABS: ALBUMIN 3.9 GM/DL (3.2-4.5); BILIRUBIN,TOTAL 0.3 MG/DL (0.1-1.0); CALCIUM 9.2 MG/DL (8.5-10.1); CREATININE SERUM 0.8 MG/DL (0.60-1.30); POTASSIUM 4.5 MMOL/L (3.6-5.0); TOTAL PROTEIN 7.1 GM/DL (6.4-8.2)
[2021-06-14 20:18] LABS: BILIRUBIN,URINE NEGATIVE (NEGATIVE); CLARITY,URINE CLEAR; COLOR,URINE YELLOW; GLUCOSE, URINE (UA) NEGATIVE (NEGATIVE); KETONES,URINE NEGATIVE (NEGATIVE); LEUKOCYTE ESTERASE ,URINE NEGATIVE (NEGATIVE); NITRITE,URINE NEGATIVE (NEGATIVE); PROTEIN,URINE NEGATIVE (NEGATIVE)
[2021-06-14] MEDS ORDERED: TRM50T PO (20:30)
[2021-06-14] MEDS ORDERED: ONDA4TAB11 PO (20:30)
[2021-06-14 20:40] LABS: AMORPHOUS SEDIMENT,UR RARE AMOR URATES /LPF; BACTERIA,URINE TRACE /HPF; WBC,URINE RARE /HPF
== END 2021-06-14 20:47 | disposition home or self-care (01) ==
LOC: EDUNIT# 16:22 → ER 16:26
DX: R10.13 Epigastric pain (principal); J45.909 Unspecified asthma, uncomplicated; E03.9 Hypothyroidism, unspecified; F41.9 Anxiety disorder, unspecified; F20.9 Schizophrenia, unspecified; G89.29 Other chronic pain; M54.9 Dorsalgia, unspecified; F17.290 Nicotine dependence, other tobacco product, uncomplicated; Z79.890 Hormone replacement therapy; Z79.891 Long term (current) use of opiate analgesic; Z79.899 Other long term (current) drug therapy
CPT/HCPCS: 36415; 80053; 81000; 83690; 84703; 85025; 99283

== ENCOUNTER 2021-09-28 10:51 | Emergency (ER) | payer MEDICAID ==
[~2021-09-28] VITALS: Ht 172 cm; Wt 87.0 kg
[~2021-09-28 10:51] MED LIST changes: +ONDA4TAB11 PO
[2021-09-28 12:00] VITALS: BP 130/89
--- NOTE | 2021-09-28 12:36 | ED Cough/URI ---
General Chief Complaint: Cough/Cold/Flu Symptoms Stated Complaint: FALLS ASLEEP STANDING UP,CONGESTION Nursing Triage Note: PT PRESENTS TO ED VIA POV FROM HOME WITH COMPLAINTS OF NECK/UPPER BACK PAIN, CONGESTION, AND FATIGUE Source: patient Exam Limitations: no limitations History of Present Illness Date Seen by Provider: September 28, 2021 Time Seen by Provider: 12:36 Initial Comments This is a 36-year-old female who presented to the ER with complaints of nasal congestion, fatigue, pain in her mid back. States that the congestion started 2 days ago however while she was at work today she had a sharp pinching sensation in the middle of her back. Allergies and Home Medications Allergies Coded Allergies: Penicillins (Verified Allergy, Unknown, RASH, 09/22/17) amoxicillin (Verified Allergy, Unknown, 09/22/17) codeine (Verified Allergy, Unknown, 07/23/18) meperidine (Verified Allergy, Unknown, 12/29/17) sulfamethoxazole (Verified Allergy, Unknown, 07/23/18) trimethoprim (Verified Allergy, Unknown, 07/23/18) Patient Home Medication List Home Medication List Reviewed: Yes Cefdinir (Cefdinir) 300 Mg Capsule, 300 MG PO BID Prescribed by: BEATRICE WAGNER on 09/28/21 1253 Cyclobenzaprine HCl (Cyclobenzaprine HCl) 5 Mg Tablet, 5 MG PO TID Prescribed by: BRITTNEY JONES on 07/05/20 1455 D-Methorphan Hb/P-Epd HCl/Bpm (Bromfed Dm Cough Syrup) 118 Ml Syrup, 5 ML PO Q6H PRN for CONGESTION Prescribed by: BRITTNEY JONES on 06/11/21 1158 Gabapentin (Gabapentin) 800 Mg Tablet, 800 MG PO TID, (Reported) Entered as Reported by: EVIE GHOTRA on 05/28/20 1508 Levothyroxine Sodium (Levothyroxine Sodium) 88 Mcg Tablet, 88 MCG PO DAILY, (Reported) Entered as Reported by: EVIE GHOTRA on 05/28/20 1508 Ondansetron (Ondansetron Odt) 4 Mg Tab.rapdis, 4 MG PO Q6H PRN for NAUSEA-1ST LINE Prescribed by: ANA ROSA CALVILLO on 06/14/212029 Paliperidone (Paliperidone ER) 6 Mg Tab.er.24, 6 MG PO HS, (Reported) Entered as Reported by: EVIE GHOTRA on 05/28/20 1508 Tramadol HCl (Ultram) 50 Mg Tablet, 50 MG PO Q6H PRN for PAIN-MODERATE (5-7) Prescribed by: BRITTNEY JONES on 07/05/20 1456 Tramadol HCl (Tramadol HCl) 50 Mg Tablet, 50 MG PO Q6H PRN for PAIN Prescribed by: BRITTNEY JONES on 06/11/21 1209 Tramadol HCl (Tramadol HCl) 50 Mg Tablet, 50 MG PO Q4H PRN for PAIN-MILD (1-4) Prescribed by: ANA ROSA CALVILLO on 06/14/212030 Trazodone HCl (Trazodone HCl) 50 Mg Tablet, 50 MG PO HS, (Reported) Entered as Reported by: EVIE GHOTRA on 05/28/20 1508 Vilazodone Hydrochloride (Viibryd) 20 Mg Tablet, 20 MG PO DAILY, (Reported) Entered as Reported by: EVIE GHOTRA on 05/28/20 1508 Review of Systems Review of Systems Constitutional: see HPI Past Wwqmhiq-Qfndvv-Pkqeow Hx Patient Social History Tobacco Use?: No Smokeless Tobacco Frequency: Current Everyday User Use of E-Cig and/or Vaping dev: Yes E-Cig or Vaping type used: Nicotine Substance use?: No Alcohol Use?: No Immunizations Up To Date Tetanus Booster (TDap): Unknown First/Initial COVID19 Vaccinat: N/A Second COVID19 Vaccination Mihir: N/A Third COVID19 Vaccination Date: N/A Seasonal Allergies Seasonal Allergies: No Past Medical History Surgery/Hospitalization HX: HYPOTHYROID, SCHIZOPHRENIA Surgeries: No Respiratory: Yes Asthma Cardiac: No Neurological: No Reproductive Disorders: No Female Reproductive Disorders: Denies Sexually Transmitted Disease: No HIV/AIDS: No Genitourinary: Yes UTI-Chronic Gastrointestinal: Yes Gall Bladder Disease Musculoskeletal: Yes (ANKYLOSING sPONDYLITIS) Chronic Back Pain Endocrine: Yes Hypothyroidsim HEENT: No Loss of Vision: Denies Hearing Impairment: Denies Cancer: Yes ("possible cervical cancer") Cervical Psychosocial: Yes Anxiety, Schizophrenia Integumentary: No Blood Disorders: No Adverse Reaction/Blood Tranf: No Family Medical History AIDS Alcoholism 19 MOTHER Ankylosing spondylitis 19 FATHER GRANDPARENTS (Paternal Grandmother) Arthritis GRANDPARENTS (Maternal Grandparents Paternal Grandparents) Diabetes mellitus GRANDPARENTS (Paternal Grandmother) Fibrocystic disease of breast GRANDPARENTS (Paternal Grandmother) Glioblastoma 19 MOTHER ( 08/10/13 ) Hypercholesterolemia GRANDPARENTS (Paternal Grandmother) Hypertension GRANDPARENTS (Paternal Grandmother) Neoplasm 19 MOTHER ( ) Osteoporosis 19 MOTHER Respiratory disorder GRANDPARENTS (Maternal Grandmother-Emphysema and COPD) Physical Exam Vital Signs - First Documented 09/28/21 12:00 Temp 35.8 Pulse 73 Resp 18 B/P (MAP) 130/89 (103) Pulse Ox 100 Capillary Refill : Less Than 3 Seconds Height: 5'8.00" Weight: 211lbs. 8.0oz. 95.624484ut; 29.00 BMI Method:Stated Progress/Results/Core Measures Suspected Sepsis SIRS Temperature: Pulse: 73 Respiratory Rate: 18 Blood Pressure 130 /89 Mean: 103 Results/Orders Lab Results Laboratory Tests Test 09/28/21 11:53 Range/Units Influenza Type A (RT-PCR) Not Detected Not Detecte Influenza Type B (RT-PCR) Not Detected Not Detecte SARS-CoV-2 RNA (RT-PCR) Not Detected Not Detecte My Orders Orders - BEATRICE WAGNER APRN Covid 19 Inhouse Test (09/28/21 11:54) Influenza A And B By Pcr (09/28/21 11:54) Rx-Tramadol Hcl (Rx-Ultram) (09/28/21 12:43) Vital Signs/I&O 09/28/21 12:00 Temp 35.8 Pulse 73 Resp 18 B/P (MAP) 130/89 (103) Pulse Ox 100 Capillary Refill : Less Than 3 Seconds Blood Pressure Mean: 103 Departure Impression Primary Impression: Sinusitis Disposition: 01 HOME, SELF-CARE Condition: Stable Departure-Patient Inst. Decision time for Depature: 12:40 Referrals: NO,LOCAL PHYSICIAN (PCP/Family) Primary Care Physician Patient Instructions: Sinusitis, Adult ED Add. Discharge Instructions: Plan: 1. Take antibiotics as directed and complete full course even if you begin to feel better. 2. You can apply warm compress to face for comfort or you can take Tylenol or Ibuprofen as needed per package. 3. Take tramadol as needed per directions for pain. Do not drive or work while taking. 4. Follow-up with your doctor next week. Return for any new, concerning, worsening symptoms. 5. Make sure you are squatting when lifting and turning instead of bending at the waist and twisting your body while moving heavy objects. All discharge instructions reviewed with patient and/or family. Voiced understanding. Scripts Cefdinir (Cefdinir) 300 Mg Capsule 300 MG PO BID for 7 Days, #14 CAP 0 Refills Prov: BEATRICE WAGNER MACHINE FEEDER 09/28/21 Work/School Note: Work Release Form Date Seen in the Emergency Department: September 28, 2021 Return to Work: Sep 29, 2021 Restrictions: No Restrictions BEATRICE WAGNER MACHINE FEEDER September 28, 2021 12:36
[2021-09-28] MEDS ORDERED: CEFD300C3 PO (12:53)
== END 2021-09-28 12:49 | disposition home or self-care (01) ==
LOC: EDUNIT# 10:51 → ER 10:52
DX: J32.9 Chronic sinusitis, unspecified (principal); F17.210 Nicotine dependence, cigarettes, uncomplicated; Z20.822 Contact with and (suspected) exposure to COVID-19
CPT/HCPCS: 87636; 99283

== ENCOUNTER 2021-10-03 13:35 | Emergency (ER) | payer MEDICAID ==
[~2021-10-03] VITALS: Ht 172.7 cm; Wt 87.0 kg
[~2021-10-03 13:35] MED LIST changes: +CEFD300C3 PO
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
[2021-10-03] MEDS ORDERED: NS 100 ML (IVPB) BAG IV ONE (14:00)
[2021-10-03] MEDS ORDERED: IOHEXOL 350 MG/ML 100 ML (OMNIPAQUE 350) VIAL IV ONE (14:00)
[2021-10-03] MEDS ORDERED: HOLD METFORMIN - RECEIVED CONTRAST 20 ML VIAL IV SCH (14:00)
[2021-10-03 14:03] LABS: BASOPHILS # (AUTO) 0.1 10^3/uL (0.0-0.1); BASOPHILS % (AUTO) 2 % (0-10); EOSINOPHILS # (AUTO) 0.7 10^3/uL (0.0-0.3); EOSINOPHILS % (AUTO) 12 % (0-10); HEMATOCRIT 40 % (35-52); HEMOGLOBIN 13.2 g/dL (11.5-16.0); LYMPHOCYTES # (AUTO) 2.1 10^3/uL (1.0-4.0); LYMPHOCYTES % (AUTO) 36 % (12-44); MEAN CORPUSCULAR HEMOGLOBIN 28 pg (25-34); MEAN CORPUSCULAR HGB CONC 33 g/dL (32-36); MEAN CORPUSCULAR VOLUME 85 fL (80-99); MEAN PLATELET VOLUME 10.4 fL (9.0-12.2); MONOCYTES # (AUTO) 0.5 10^3/uL (0.0-1.0); MONOCYTES % (AUTO) 8 % (0-12); NEUTROPHILS # (AUTO) 2.4 10^3/uL (1.8-7.8); NEUTROPHILS % (AUTO) 42 % (42-75); PLATELET COUNT 232 10^3/uL (130-400); WHITE BLOOD COUNT 5.8 10^3/uL (4.3-11.0)
[2021-10-03 14:14] LABS: ALBUMIN 3.9 GM/DL (3.2-4.5); CHLORIDE 103 MMOL/L (98-107); POTASSIUM 3.6 MMOL/L (3.6-5.0); SODIUM 138 MMOL/L (135-145)
[2021-10-03 14:16] LABS: GLUCOSE 103 MG/DL (70-105); TOTAL PROTEIN 6.5 GM/DL (6.4-8.2)
[2021-10-03 14:17] LABS: CARBON DIOXIDE 25 MMOL/L (21-32)
[2021-10-03 14:18] LABS: BILIRUBIN,TOTAL 0.4 MG/DL (0.1-1.0)
[2021-10-03 14:20] LABS: ALKALINE PHOSPHATASE 38 U/L (40-136); CREATININE SERUM 0.76 MG/DL (0.60-1.30); GFR ESTIMATED 103
[2021-10-03 14:21] LABS: BUN/CREATININE RATIO 12
[2021-10-03 14:23] LABS: ALANINE AMINOTRANSFERASE 19 U/L (0-55)
[2021-10-03 14:25] LABS: BASOPHILS % (MANUAL) 1 %; EOSINOPHILS % (MANUAL) 14 %; LYMPHOCYTES % (MANUAL) 36 %; MONOCYTES % (MANUAL) 7 %; NEUTROPHILS % (MANUAL) 42 %; RBC MORPH NORMAL
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
--- NOTE | 2021-10-03 14:42 | Diagnostic Imaging Report ---
EXAMINATION: CT chest with intravenous contrast. TECHNIQUE: Multiple contiguous axial images were obtained through the chest after the uneventful administration of intravenous contrast. All CT scans use one or more of the following dose optimizing techniques: automated exposure control, MA and/or KvP adjustment based on patient size and exam type or iterative reconstruction. HISTORY: Chest injury. COMPARISON: None available. FINDINGS: There is no edema or pneumonia. No pleural effusion. No pneumothorax. No suspicious nodules. There is no axillary or supraclavicular lymphadenopathy. There is no mediastinal lymphadenopathy. Heart size is normal. There are no coronary artery calcifications. No pericardial effusion. Aorta is normal in caliber. Limited views of the upper abdomen show stones in the gallbladder. There are no suspicious osseus lesions. IMPRESSION: No acute traumatic injury in the chest. Dictated by: Dictated on workstation # [id number]
--- NOTE | 2021-10-03 14:46 | Diagnostic Imaging Report ---
EXAMINATION: Right hand 3 views. HISTORY: Hand pain. COMPARISON: None available. FINDINGS: Alignment is normal. No fracture is seen. Joint spaces are normal. IMPRESSION: No fracture. Dictated by: Dictated on workstation # [id number]
[2021-10-03] MEDS ORDERED: CYCL10TA25 PO (14:57)
[2021-10-03] MEDS ORDERED: NAPR500T8 PO (14:57)
[2021-10-03] MEDS ORDERED: HYDROcodone/APAP 5 MG/325 MG (LORTAB) TAB PO ONE (15:00)
[2021-10-03 15:20] VITALS: BP 140/91
== END 2021-10-03 15:20 | disposition home or self-care (01) ==
LOC: EDUNIT# 13:35 → ER 13:36
DX: S60.511A Abrasion of right hand, initial encounter (principal); R07.2 Precordial pain; V49.40XA Driver injured in collision with unspecified motor vehicles in traffic accident, initial encounter; W22.11XA Striking against or struck by driver side automobile airbag, initial encounter
CPT/HCPCS: 36415; 70450; 71260; 72125; 73130; 80053; 84484; 85007; 85027; 85610; 85730; 93005

== ENCOUNTER 2022-01-19 09:27 | Emergency (ER) | payer MEDICAID ==
[~2022-01-19] VITALS: Ht 172 cm; Wt 92.0 kg
[~2022-01-19 09:27] MED LIST changes: +CYCL10TA25 PO; +NAPR500T8 PO
[2022-01-19 09:50] VITALS: BP 136/71
[2022-01-19] MEDS ORDERED: BREX2TAB (10:07)
[2022-01-19] MEDS ORDERED: MELO15TA39 (10:07)
--- NOTE | 2022-01-19 10:09 | ED Back Pain ---
General Chief Complaint: Back Problems Stated Complaint: UPPER BACK PAIN Nursing Triage Note: ARRIVED VIA AMB TO FT 1. COMPLAINS OF MID UPPER BACK PAIN THAT GOES INTO HER NECK AND LEFT SHOULDER. DENIES INJURY. THINKS SHE WAS BIT BY A SPIDER. PT STATES SHE HAS BEEN TAKING NAPROXEN AND GABAPENTIN BUT IT IS NOT HELPING. Source of Information: Patient Exam Limitations: No Limitations History of Present Illness Date Seen by Provider: Jan 19, 2022 Time Seen by Provider: 10:09 Initial Comments This is a well-appearing 36-year-old female who presented the ER with complaints of mid thoracic back pain that radiated into the left side of her neck and shoulder. She denies any heavy lifting, bending, twisting. No trauma. Initially thought that she was bit by a spider however there was no sylvester appreciated. States that she has been taking naproxen and Gabapentin with no relief. No fever, chills, cough, shortness of breath, nausea, vomiting, ab dominal pain. Pain is worse with movement. No alleviating factors. Allergies and Home Medications Allergies Coded Allergies: Penicillins (Verified Allergy, Unknown, RASH, 09/22/17) amoxicillin (Verified Allergy, Unknown, 09/22/17) codeine (Verified Allergy, Unknown, 07/23/18) meperidine (Verified Allergy, Unknown, 12/29/17) sulfamethoxazole (Verified Allergy, Unknown, 07/23/18) trimethoprim (Verified Allergy, Unknown, 07/23/18) Patient Home Medication List Home Medication List Reviewed: Yes Brexpiprazole (Rexulti) 2 Mg Tablet, (Reported) Entered as Reported by: YOUSUF BO on 01/19/22 1007 Last Action: New Order Cyclobenzaprine HCl (Cyclobenzaprine HCl) 10 Mg Tablet, 10 MG PO TID Prescribed by: ANA ROSA CALVILLO on 10/03/21 1457 Gabapentin (Gabapentin) 800 Mg Tablet, 800 MG PO TID, (Reported) Entered as Reported by: EVIE GHOTRA on 05/28/20 1508 Levothyroxine Sodium (Levothyroxine Sodium) 88 Mcg Tablet, 88 MCG PO DAILY, (Reported) Entered as Reported by: EVIE GHOTRA on 05/28/20 1508 Meloxicam (Meloxicam) 15 Mg Tablet, (Reported) Entered as Reported by: YOUSUF BO on 01/19/22 1007 Last Action: New Order Naproxen (Naproxen) 500 Mg Tablet.dr, 500 MG PO BID Prescribed by: ANA ROSA CALVILLO on 10/03/21 1457 Paliperidone (Paliperidone ER) 6 Mg Tab.er.24, 6 MG PO HS, (Reported) Entered as Reported by: EVIE GHOTRA on 05/28/20 1508 Tramadol HCl (Tramadol HCl) 50 Mg Tablet, 50 MG PO Q6H PRN for PAIN Prescribed by: BEATRICE WAGNER on 01/19/22 1022 Vilazodone Hydrochloride (Viibryd) 20 Mg Tablet, 20 MG PO DAILY, (Reported) Entered as Reported by: EVIE GHOTRA on 05/28/20 1508 Discontinued Medications Cefdinir (Cefdinir) 300 Mg Capsule, 300 MG PO BID Discontinued Reason: No Longer Taking Prescribed by: BEATRICE WAGNER on 09/28/21 1253 Last Action: Discontinued Cyclobenzaprine HCl (Cyclobenzaprine HCl) 5 Mg Tablet, 5 MG PO TID Discontinued Reason: No Longer Taking Prescribed by: BRITTNEY JONES on 07/05/20 1455 Last Action: Discontinued D-Methorphan Hb/P-Epd HCl/Bpm (Bromfed Dm Cough Syrup) 118 Ml Syrup, 5 ML PO Q6H PRN for CONGESTION Discontinued Reason: No Longer Taking Prescribed by: BRITTNEY JONES on 06/11/21 1158 Last Action: Discontinued Ondansetron (Ondansetron Odt) 4 Mg Tab.rapdis, 4 MG PO Q6H PRN for NAUSEA-1ST LINE Discontinued Reason: No Longer Taking Prescribed by: ANA ROSA CALVILLO on 06/14/21 2030 Last Action: Discontinued Tramadol HCl (Ultram) 50 Mg Tablet, 50 MG PO Q6H PRN for PAIN-MODERATE (5-7) Discontinued Reason: No Longer Taking Prescribed by: BRITTNEY JONES on 07/05/20 1456 Last Action: Discontinued Tramadol HCl (Tramadol HCl) 50 Mg Tablet, 50 MG PO Q6H PRN for PAIN Discontinued Reason: No Longer Taking Prescribed by: BRITTNEY JONES on 06/11/21 1209 Last Action: Discontinued Tramadol HCl (Tramadol HCl) 50 Mg Tablet, 50 MG PO Q4H PRN for PAIN-MILD (1-4) Discontinued Reason: No Longer Taking Prescribed by: ANA ROSA CALVILLO on 06/14/212030 Last Action: Discontinued Trazodone HCl (Trazodone HCl) 50 Mg Tablet, 50 MG PO HS, (Reported) Discontinued Reason: No Longer Taking Entered as Reported by: EVIE GHOTRA on 05/28/20 1508 Last Action: Discontinued Review of Systems Constitutional: no symptoms reported EENTM: no symptoms reported Respiratory: no symptoms reported Cardiovascular: no symptoms reported Gastrointestinal: no symptoms reported Genitourinary: no symptoms reported Musculoskeletal: see HPI Skin: no symptoms reported Psychiatric/Neurological: No Symptoms Reported Past Rmbrytu-Rranqf-Jfradj Hx Patient Social History Tobacco Use?: Yes Smokeless Tobacco Frequency: Current Everyday User Substance use?: No Alcohol Use?: No Immunizations Up To Date Tetanus Booster (TDap): Unknown First/Initial COVID19 Vaccinat: N/A Second COVID19 Vaccination Mihir: N/A Third COVID19 Vaccination Date: N/A Seasonal Allergies Seasonal Allergies: No Past Medical History Surgery/Hospitalization HX: HYPOTHYROID, SCHIZOPHRENIA Surgeries: No Respiratory: Yes Asthma Cardiac: No Neurological: No Reproductive Disorders: No Female Reproductive Disorders: Denies Sexually Transmitted Disease: No HIV/AIDS: No Genitourinary: Yes UTI-Chronic Gastrointestinal: Yes Gall Bladder Disease Musculoskeletal: Yes (ANKYLOSING sPONDYLITIS) Chronic Back Pain Endocrine: Yes Hypothyroidsim HEENT: No Loss of Vision: Denies Hearing Impairment: Denies Cancer: Yes ("possible cervical cancer") Cervical Psychosocial: Yes Anxiety, Schizophrenia Integumentary: No Blood Disorders: No Adverse Reaction/Blood Tranf: No Family Medical History AIDS Alcoholism 19 MOTHER Ankylosing spondylitis 19 FATHER GRANDPARENTS (Paternal Grandmother) Arthritis GRANDPARENTS (Maternal Grandparents Paternal Grandparents) Diabetes mellitus GRANDPARENTS (Paternal Grandmother) Fibrocystic disease of breast GRANDPARENTS (Paternal Grandmother) Glioblastoma 19 MOTHER ( 08/10/13 ) Hypercholesterolemia GRANDPARENTS (Paternal Grandmother) Hypertension GRANDPARENTS (Paternal Grandmother) Neoplasm 19 MOTHER ( ) Osteoporosis 19 MOTHER Respiratory disorder GRANDPARENTS (Maternal Grandmother-Emphysema and COPD) Physical Exam Vital Signs Vital Signs - First Documented 01/19/22 09:50 Temp 36.1 Pulse 71 Resp 16 B/P (MAP) 136/71 (92) Pulse Ox 100 O2 Delivery Room Air Capillary Refill : Less Than 3 Seconds Height, Weight, BMI Height: 5'8.00" Weight: 211lbs. 8.0oz. 95.874814yg; 31.00 BMI Method:Stated General Appearance: No Apparent Distress, WD/WN HEENT: PERRL/EOMI, TMs Normal, Normal ENT Inspection, Pharynx Normal Neck: Full Range of Motion, Normal Inspection, Non Tender, Supple Cardiovascular: Regular Rate, Rhythm, Normal Peripheral Pulses Respiratory: Chest Non Tender, Lungs Clear, Normal Breath Sounds Gastrointestinal: Normal Bowel Sounds, Non Tender, Soft Back: Normal Inspection, Vertebral Tenderness (mid thoracic, left scapular and left trapezus tenderness. ) Extremity: Normal Capillary Refill, No Calf Tenderness Neurologic/Psychiatric: Alert, Oriented x3, No Motor/Sensory Deficits, Normal Mood/Affect Skin: Normal Color, Warm/Dry Progress/Results/Core Measures Results/Orders Vital Signs/I&O 01/19/22 09:50 Temp 36.1 Pulse 71 Resp 16 B/P (MAP) 136/71 (92) Pulse Ox 100 O2 Delivery Room Air Blood Pressure Mean: 92 Progress Progress Note : Progress Note Patient examined and in no acute distress. No obvious deformity of examination of the thoracic spine. Most of her tenderness is located over her trapezius muscle. States that she is allergic to all muscle relaxers. Has been taking ibuprofen, Tylenol, naproxen, gabapentin at home with no relief. Will give short course of tramadol for severe pain. Instructed to use ice, heat 20 minutes at a time, could apply topical creams such as icy hot and Biofreeze. Discharge plan of care reviewed and she is agreeable with plan. Departure Impression Primary Impression: Strain of thoracic region Disposition: HOME, SELF-CARE Condition: Stable Departure-Patient Inst. Decision time for Depature: 10:17 Referrals: NO,LOCAL PHYSICIAN (PCP/Family) Primary Care Physician Patient Instructions: Muscle Strain ED Add. Discharge Instructions: Plan: 1. May use ice/heat 20 minutes at a time to affected area. 2. You can apply over the counter icy hot or bio freeze. 3. May take Tramadol as needed every 6 hours for severe pain. 4. Use Ibuprofen or Tylenol as needed for pain. 5. Establish with primary care provider of your choice. 6. Return for any new, concerning, or worsening symptoms. All discharge instructions reviewed with patient and/or family. Voiced understanding. Scripts Tramadol HCl (Tramadol HCl) 50 Mg Tablet 50 MG PO Q6H PRN for PAIN for 3 Days, #14 TAB 0 Refills Prov: BEATRICE WAGNER APRN 01/19/22 BEATRICE WAGNER APRN Jan 19, 2022 10:09
[2022-01-19] MEDS ORDERED: TRM50T PO (10:21)
== END 2022-01-19 10:28 | disposition home or self-care (01) ==
LOC: EDUNIT# 09:27 → ER 09:30
DX: S29.012A Strain of muscle and tendon of back wall of thorax, initial encounter (principal); M25.512 Pain in left shoulder; F17.200 Nicotine dependence, unspecified, uncomplicated; Z28.310 Unvaccinated for COVID-19; W57.XXXA Bitten or stung by nonvenomous insect and other nonvenomous arthropods, initial encounter
CPT/HCPCS: 99281

== ENCOUNTER 2023-01-16 19:33 | Emergency (ER) | payer MEDICAID ==
[~2023-01-16] VITALS: Ht 172 cm; Wt 97.9 kg
[~2023-01-16 19:33] MED LIST changes: +ALBU8.5H6 IH; +BREX2TAB; +MELO15TA39; -RT-ALBUINH IH
[2023-01-16 19:47] VITALS: BP 124/74
[2023-01-16 20:21] LABS: BASOPHILS # (AUTO) 0.1 10^3/uL (0.0-0.1); BASOPHILS % (AUTO) 1 % (0-10); EOSINOPHILS # (AUTO) 0.3 10^3/uL (0.0-0.3); EOSINOPHILS % (AUTO) 5 % (0-10); HEMATOCRIT 37 % (35-52); HEMOGLOBIN 12.5 g/dL (11.5-16.0); LYMPHOCYTES # (AUTO) 2.2 10^3/uL (1.0-4.0); LYMPHOCYTES % (AUTO) 35 % (12-44); MEAN CORPUSCULAR HEMOGLOBIN 29 pg (25-34); MEAN CORPUSCULAR HGB CONC 34 g/dL (32-36); MEAN CORPUSCULAR VOLUME 86 fL (80-99); MEAN PLATELET VOLUME 9.7 fL (9.0-12.2); MONOCYTES # (AUTO) 0.5 10^3/uL (0.0-1.0); MONOCYTES % (AUTO) 9 % (0-12); NEUTROPHILS # (AUTO) 3.2 10^3/uL (1.8-7.8); NEUTROPHILS % (AUTO) 50 % (42-75); PLATELET COUNT 227 10^3/uL (130-400); WHITE BLOOD COUNT 6.4 10^3/uL (4.3-11.0)
[2023-01-16 20:51] LABS: ALBUMIN 4.1 GM/DL (3.2-4.5); BILIRUBIN,TOTAL 0.2 MG/DL (0.1-1.0); CALCIUM 9.4 MG/DL (8.5-10.1); CREATININE SERUM 0.78 MG/DL (0.60-1.30); POTASSIUM 3.4 MMOL/L (3.6-5.0); TOTAL PROTEIN 6.9 GM/DL (6.4-8.2)
--- NOTE | 2023-01-16 21:43 | ED General ---
General Chief Complaint: General Problems/Pain Stated Complaint: SLEEPING STANDING UP, CONVULSIONS, DEPRESS, BACK P Nursing Triage Note: Patient ambulatory to room 06 c/o depression/anxiety, weight gain, sleeping problem, bad dreams, convulsions/shaking, falling asleep standing up and almost passing out, eyes are crossing, and lower back pain. patient states she has a history of thyroid problems. Source of Information: Patient Exam Limitations: No Limitations History of Present Illness Date Seen by Provider: Jan 16, 2023 Time Seen by Provider: 19:50 Initial Comments Patient is a 37-year-old female who presents to the emergency room with multiple complaints. She tells me that over the last 3 or 4 days she has been having "nightmares" at night, not sleeping well and has been excessively sleepy during the day at work. 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 She states that coworkers have told her that she seems to be either falling asleep or about to pass out at work. She believes that when she wakes up at night with her nightmares she is having "convulsions". She is concerned about having seizures. She states it feels like her eyes are "crossing". She has had some worsening of her chronic low back pain. She also states that she has had about a 50 pound weight gain over the last 6 weeks. Patient started Abilify and Keppra for mood stabilization 6 weeks ago. She follows with a primary care provider who prescribes all her medications. She denies any recent fevers, chills, URI symptoms. She is not nauseous. She is not short of breath. She denies any urinary complaints. No diarrhea. She states she has not missed or skipped any of her daily medications. She has recently increased her dosage of Abilify. Arrives to the emergency department awake, alert, oriented in no acute distress. Vital signs are stable. Timing/Duration: 2-3 Days Severity: Severe Associated Systoms: Malaise, Other (fatigue; back pain; weight gain) Allergies and Home Medications Allergies Coded Allergies: Penicillins (Verified Allergy, Unknown, RASH, 09/22/17) amoxicillin (Verified Allergy, Unknown, 09/22/17) codeine (Verified Allergy, Unknown, 07/23/18) meperidine (Verified Allergy, Unknown, 12/29/17) sulfamethoxazole (Verified Allergy, Unknown, 07/23/18) trimethoprim (Verified Allergy, Unknown, 07/23/18) Patient Home Medication List Home Medication List Reviewed: Yes Brexpiprazole (Rexulti) 2 Mg Tablet, (Reported) Entered as Reported by: YOUSUF BO on 01/19/22 1007 Cyclobenzaprine HCl (Cyclobenzaprine HCl) 10 Mg Tablet, 10 MG PO TID Prescribed by: ANA ROSA CALVILLO on 10/03/21 1457 Gabapentin (Gabapentin) 800 Mg Tablet, 800 MG PO TID, (Reported) Entered as Reported by: EVIE GHOTRA on 05/28/20 1508 Levothyroxine Sodium (Levothyroxine Sodium) 88 Mcg Tablet, 88 MCG PO DAILY, (Reported) Entered as Reported by: EVIE GHOTRA on 05/28/20 1508 Meloxicam (Meloxicam) 15 Mg Tablet, (Reported) Entered as Reported by: YOUSUF BO on 01/19/22 1007 Naproxen (Naproxen) 500 Mg Tablet.dr, 500 MG PO BID Prescribed by: ANA ROSA CALVILLO on 10/03/21 1457 Paliperidone (Paliperidone ER) 6 Mg Tab.er.24, 6 MG PO HS, (Reported) Entered as Reported by: EVIE GHOTRA on 05/28/20 1508 Tramadol HCl (Tramadol HCl) 50 Mg Tablet, 50 MG PO Q6H PRN for PAIN Prescribed by: BEATRICE WAGNER on 01/19/22 1022 Vilazodone Hydrochloride (Viibryd) 20 Mg Tablet, 20 MG PO DAILY, (Reported) Entered as Reported by: EVIE GHOTRA on 05/28/20 1508 Review of Systems Review of Systems Constitutional: see HPI EENTM: other ("Crossed eyes") Respiratory: no symptoms reported Cardiovascular: no symptoms reported Gastrointestinal: no symptoms reported Genitourinary: no symptoms reported Musculoskeletal: back pain (Chronic low back pain) Skin: no symptoms reported Psychiatric/Neurological: Anxiety, Other ("Nightmares", "convulsions") Hematologic/Lymphatic: Other (Weight gain) All Other Systems Reviewed Negative Unless Noted: Yes Past [id number] Hx Patient Social History Tobacco Use?: No Substance use?: No Alcohol Use?: No Immunizations Up To Date Tetanus Booster (TDap): Unknown First/Initial COVID19 Vaccinat: N/A Second COVID19 Vaccination Mihir: N/A Third COVID19 Vaccination Date: N/A Seasonal Allergies Seasonal Allergies: No Past Medical History Surgery/Hospitalization HX: HYPOTHYROID, SCHIZOPHRENIA Surgeries: No Respiratory: Yes Asthma Cardiac: No Neurological: No Reproductive Disorders: No Female Reproductive Disorders: Denies Sexually Transmitted Disease: No HIV/AIDS: No Genitourinary: Yes UTI-Chronic Gastrointestinal: Yes Gall Bladder Disease Musculoskeletal: Yes (ANKYLOSING sPONDYLITIS) Chronic Back Pain Endocrine: Yes Hypothyroidsim HEENT: No Loss of Vision: Denies Hearing Impairment: Denies Cancer: Yes ("possible cervical cancer") Cervical Psychosocial: Yes Anxiety, Schizophrenia Integumentary: No Blood Disorders: No Adverse Reaction/Blood Tranf: No Family Medical History AIDS Alcoholism 19 MOTHER Ankylosing spondylitis 19 FATHER GRANDPARENTS (Paternal Grandmother) Arthritis GRANDPARENTS (Maternal Grandparents Paternal Grandparents) Diabetes mellitus GRANDPARENTS (Paternal Grandmother) Fibrocystic disease of breast GRANDPARENTS (Paternal Grandmother) Glioblastoma 19 MOTHER ( 08/10/13 ) Hypercholesterolemia GRANDPARENTS (Paternal Grandmother) Hypertension GRANDPARENTS (Paternal Grandmother) Neoplasm 19 MOTHER ( ) Osteoporosis 19 MOTHER Respiratory disorder GRANDPARENTS (Maternal Grandmother-Emphysema and COPD) Physical Exam Vital Signs Vital Signs - First Documented 01/16/23 19:47 Temp 36.8 Pulse 84 Resp 18 B/P (MAP) 124/74 (91) Pulse Ox 100 O2 Delivery Room Air Capillary Refill : Less Than 3 Seconds Height, Weight, BMI Height: 5'8.00" Weight: 211lbs. 8.0oz. 95.315758ui; 33.00 BMI Method:Stated General Appearance: No Apparent Distress, WD/WN Eyes: Bilateral Eye Normal Inspection, Bilateral Eye PERRL, Bilateral Eye EOMI HEENT: PERRL/EOMI, Pharynx Normal Neck: Normal Inspection Respiratory: Lungs Clear, Normal Breath Sounds, No Accessory Muscle Use, No Respiratory Distress Cardiovascular: Regular Rate, Rhythm, Normal Peripheral Pulses Gastrointestinal: Normal Bowel Sounds, Non Tender, Soft Extremity: Normal Capillary Refill, Normal Inspection, Normal Range of Motion, No Pedal Edema Neurologic/Psychiatric: Alert, Oriented x3, No Motor/Sensory Deficits, Normal 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 Normal [id number]. Negative Romberg.) Skin: Normal Color, Warm/Dry Progress/Results/Core Measures Suspected Sepsis SIRS Temperature: Pulse: 84 Respiratory Rate: 18 Laboratory Tests 01/16/23 20:10: White Blood Count 6.4 Blood Pressure 124 /74 Mean: 91 Laboratory Tests 01/16/23 20:10: Creatinine 0.78, Platelet Count 227, Total Bilirubin 0.2 Results/Orders Lab Results Laboratory Tests Test 01/16/23 20:10 Range/Units White Blood Count 6.4 4.3-11.0 10^3/uL Red Blood Count 4.29 3.80-5.11 10^6/uL Hemoglobin 12.5 11.5-16.0 g/dL Hematocrit 37 35-52 % Mean Corpuscular Volume 86 80-99 fL Mean Corpuscular Hemoglobin 29 25-34 pg Mean Corpuscular Hemoglobin Concent 34 32-36 g/dL Red Cell Distribution Width 13.5 10.0-14.5 % Platelet Count 227 130-400 10^3/uL Mean Platelet Volume 9.7 9.0-12.2 fL Immature Granulocyte % (Auto) 0 % Neutrophils (%) (Auto) 50 42-75 % Lymphocytes (%) (Auto) 35 12-44 % Monocytes (%) (Auto) 9 0-12 % Eosinophils (%) (Auto) 5 0-10 % Basophils (%) (Auto) 1 0-10 % Neutrophils # (Auto) 3.2 1.8-7.8 10^3/uL Lymphocytes # (Auto) 2.2 1.0-4.0 10^3/uL Monocytes # (Auto) 0.5 0.0-1.0 10^3/uL Eosinophils # (Auto) 0.3 0.0-0.3 10^3/uL Basophils # (Auto) 0.1 0.0-0.1 10^3/uL Immature Granulocyte # (Auto) 0.0 0.0-0.1 10^3/uL Sodium Level 140 135-145 MMOL/L Potassium Level 3.4 L 3.6-5.0 MMOL/L Chloride Level 109 H 98-107 MMOL/L Carbon Dioxide Level 23 21-32 MMOL/L Anion Gap 8 5-14 MMOL/L Blood Urea Nitrogen 14 7-18 MG/DL Creatinine 0.78 0.60-1.30 MG/DL Estimat Glomerular Filtration Rate 100 BUN/Creatinine Ratio 18 Glucose Level 61 L 70-105 MG/DL Calcium Level 9.4 8.5-10.1 MG/DL Corrected Calcium 9.3 8.5-10.1 MG/DL Total Bilirubin 0.2 0.1-1.0 MG/DL Aspartate Amino Transf (AST/SGOT) 34 5-34 U/L Alanine Aminotransferase (ALT/SGPT) 46 0-55 U/L Alkaline Phosphatase 47 40-136 U/L Total Protein 6.9 6.4-8.2 GM/DL Albumin 4.1 3.2-4.5 GM/DL Thyroid Stimulating Hormone (TSH) 1.60 0.35-4.94 UIU/ML My Orders Orders - PHILLIP MORALES MD Cbc With Automated Diff (01/16/23 20:02) Comprehensive Metabolic Panel (01/16/23 20:02) Thyroid Stimulating Hormone (01/16/23 20:02) Vital Signs/I&O 01/16/23 01/16/23 19:47 20:38 Temp 36.8 Pulse 84 Resp 18 B/P (MAP) 124/74 (91) Pulse Ox 100 O2 Delivery Room Air Room Air Capillary Refill : Less Than 3 Seconds Blood Pressure Mean: 91 Progress Note : Time: 21:30 Progress Note Patient seen and evaluated by me. Evaluation today includes physical exam, CBC, basic metabolic panel. Patient's exam is generally unremarkable. She has a normal neurologic exam. No concerning findings for cerebellar ataxia. Heart is regular, lungs are clear, abdomen is benign. Differential diagnosis includes medication reaction, weight gain secondary to Abilify. Exacerbation of chronic mental health issues. Patient labs are independently reviewed and interpreted by me. Her CBC is normal. Her Chem-12 shows a mildly low potassium at 3.4 and a low glucose at 61. Patient is provided crackers and juice in the emergency department. She is monitored while labs are being obtained and resulted. No deterioration in her condition. She is reassured that she has no emergent medical condition that would require further evaluation in the emergency department nor admission to the hospital. I encouraged her to follow-up with her primary care physician about her medications that were recently started that quite possibly have resulted in her weight gain over the last 6 weeks. They may also be contributing to her "nightmares" which is causing excessive daytime sleepiness causing her to almost "pass out". Patient appears comfortable with this work- up. She has no other concerns at this time. No medical emergency has been identified as the cause of her above-stated symptoms. Return precautions provided in both verbal and written format. All questions are sought and answered. Patient is stable for discharge. Departure Impression Primary Impression: Hypoglycemia Additional Impression: Medication side effects Disposition: HOME, SELF-CARE Condition: Stable Departure-Patient Inst. Decision time for Depature: 21:40 Referrals: NABILA SANDERS DO (PCP/Family) Primary Care Physician Patient Instructions: Low Blood Sugar, Adult ED Add. Discharge Instructions: Please call and follow-up with your primary care physician about your repeated episodes of low blood sugar. I suspect the weight gain you have experienced over the last 6 weeks is possibly related to the Abilify you were started on 6 weeks ago. Do not stop taking this medication but talk to your primary care doctor about possibly weaning off of it. You may be having nightmares and disrupted sleep as well because of the medication. Consider trying some melatonin or Unisom to aid with sleep. Do not eat a large meal just before bedtime. Avoid scrolling on your phone just before bedtime. Drink plenty of fluids to stay well-hydrated. Try to keep snacks in your pocket while working so that your blood sugar does not dip too low. Return to the emergency department for any new, concerning or emergent complaints Work/School Note: Work Release Form Date Seen in the Emergency Department: Jan 16, 2023 Return to Work: Jan 17, 2023 Copy Copies To 1: NABILA SANDERS KATHRYN M MD Jan 16, 2023 21:42
== END 2023-01-16 21:50 | disposition home or self-care (01) ==
LOC: EDUNIT# 19:33 → ER 19:38
DX: E16.2 Hypoglycemia, unspecified (principal); R53.81 Other malaise; R63.5 Abnormal weight gain; M54.50 Low back pain, unspecified; T50.905A Adverse effect of unspecified drugs, medicaments and biological substances, initial encounter; E87.6 Hypokalemia; Z28.310 Unvaccinated for COVID-19
CPT/HCPCS: 36415; 80053; 84443; 85025; 99281